=== PATIENT | male | born 1970 | race Caucasian/White ===

== ENCOUNTER 2019-04-20 18:07 | Emergency (ER) | payer BC, SELFPAY ==
[2019-04-20 18:38] VITALS: BP 122/74; PULSE 117; RESP 28; TEMP 37.7; O2SAT 96
--- NOTE | 2019-04-20 19:16 | ED.URI ---
HPI - URI/Sore Throat General Chief Complaint: Upper Respiratory Infection Stated Complaint: Fever/Headache Time Seen by Provider: 04/20/19 19:10 Source: patient and RN notes reviewed Mode of arrival: ambulatory Limitations: no limitations History of Present Illness HPI Narrative: Patient presents today with a 2-day history of cough, fever up to 104, headache, body aches. He has been taking Tylenol, TheraFlu, Kristina-[place], vitamin C. Currently rates his pain 6/10. Denies any history of asthma or COPD. Denies shortness of breath. He did not receive a flu vaccine. He does not smoke or vape. MD elicited complaint: fever Related Data Home Medications Medication Instructions Recorded Confirmed No Home Medications 04/20/19 04/20/19 Allergies Allergy/AdvReac Type Severity Reaction Status Date / Time No Known Allergies Allergy Verified 04/20/19 19:11 Review of Systems Review of Systems: Narrative: CONSTITUTIONAL: Denies chills, or sweats.+Body aches, fever EYES: Denies visual changes, redness, or discharge. ENT: Denies rhinorrhea, congestion, sore throat, or otalgia. CARDIOVASCULAR: Denies chest pain, palpitations, or edema. RESPIRATORY: Denies dyspnea.+Cough GASTROINTESTINAL: Denies abdominal pain, nausea, vomiting, or diarrhea. GENITOURINARY: Denies dysuria or hematuria. SKIN: Denies rash, itching, or wounds. MUSCULOSKELETAL: Denies back pain, joint pain, or myalgia. NEUROLOGIC: Denies numbness, tingling, or weakness.+Headache PSYCH: Denies depression or anxiety. [facility] Family History Family History (Updated 02/04/18 @ 14:59 by DOCTOR UNKNOWN) Father Malignant neoplasm of prostate Grandparent Family history of malignant neoplasm Mother Family history of malignant neoplasm of uterus Social History Social History Smoking status: Never smoker Second hand tobacco smoke exposure: Yes Smoking end date: 02/25/11 Alcohol intake: current Comments At time of signature, I have reviewed and agree with nursing past medical, surgical, social and family history unless otherwise noted. Please see nursing chart for further information. There is no relevant family history pertinent to the presenting complaint Exam Narrative: Exam Narrative: GENERAL: Mildly ill-appearing, well-nourished, and in no acute distress. HEAD: Normocephalic, atraumatic. EYES: EOMI. No redness or drainage. Conjunctivae normal. ENT: Mucous membranes pink and moist. Nares clear. No rhinorrhea. TMs normal bilaterally. Throat normal. Uvula midline. NECK: Normal AROM. Supple. No lymphadenopathy. CHEST: No respiratory distress. Clear to auscultation. HEART: Regular rhythm. +Tachycardia.No murmur appreciated. Normal peripheral pulses. ABDOMEN: Soft, nontender, nondistended, normal active bowel sounds. MUSCULOSKELETAL: No bony tenderness. EXTREMITIES: Normal range of motion. No edema. SKIN: Warm, dry, no rash. NEURO: No focal deficits. Alert and oriented x3. Gait steady. PSYCH: Normal affect. No signs of depression or anxiety. Course Vital Signs Vital signs: Vital Signs Temperature 99.8 F H 04/20/19 18:38 Pulse Rate 117 H 04/20/19 18:38 Respiratory Rate 28 H 04/20/19 18:38 Blood Pressure 122/74 04/20/19 18:38 Pulse Oximetry 96 04/20/19 18:38 Temperature 99.8 F H 04/20/19 18:38 Pulse Rate 117 H 04/20/19 18:38 Respiratory Rate 28 H 04/20/19 18:38 Blood Pressure 122/74 04/20/19 18:38 Pulse Oximetry 96 04/20/19 18:38 Reviewed. Tachycardia likely due to 104 fever just prior to arrival. MDM - URI/Sore Throat Differential Diagnosis Differential diagnosis: Likely upper respiratory infection, otitis media, sinusitis, viral infection and influenza Lab Data Attestation: I reviewed the patient's lab results. Labs: Influenza A Screen Positive Reference Range: Negative Influenza B Screen Negative Reference Range: Negative Critical Care Time Criti
== END 2019-04-20 19:20 | disposition home or self-care (01) ==
PROVIDERS: Emergency Provider Nurse Practitioner; PCP Family Medicine
DX: J10.1 Influenza due to other identified influenza virus with other respiratory manifestations (principal)
CPT/HCPCS: 87804; 99212; G0463

== ENCOUNTER 2019-12-10 14:03 | Emergency (ER) | payer BC, SELFPAY ==
--- NOTE | ~2019-12-10 | XR_ITS ---
EXAMINATION: XR chest 2V DATE: 12/10/2019 14:49 INDICATION: Shortness of breath. Anterior left rib pain. TECHNIQUE: Frontal and lateral views of the chest were obtained. COMPARISON: Chest 2 views 02/04/2018 FINDINGS: The chest demonstrates clear lungs without pneumonia, pleural effusion, or pneumothorax. Th e heart size is normal. IMPRESSION: 1. No acute cardiopulmonary disease. Reviewed, dictated and finalized at location A.
--- NOTE | ~2019-12-10 | XR_ITS ---
EXAMINATION: XR ribs LT 2V DATE: 12/10/2019 14:49 INDICATION: Left anterior rib pain. Shortness of breath. TECHNIQUE: 3 views of the left ribs were obtained. COMPARISON: Chest 2 views 02/04/2018 FINDINGS: There is no left-sided pneumonia, pleural effusion, or pneumothorax. The heart size is norm al. IMPRESSION: 1. No rib fracture. Reviewed, dictated and finalized at location A. IMPRESSION: 1. No rib fracture.
[2019-12-10 14:06] VITALS: BP 155/90; PULSE 87; RESP 20; TEMP 36.5; O2SAT 100
--- NOTE | 2019-12-10 14:20 | ED.BACK ---
HPI - Back Pain/Injury General Chief Complaint: Back Pain/Injury Stated Complaint: pain in chest from ribs/coughing up blood Time Seen by Provider: 12/10/19 14:20 Source: patient and RN notes reviewed History of Present Illness HPI Narrative: Patient is a 48-year-old male who presents the urgent care with complaints of left anterior rib pain. Patient states that he was having some back pain on Saturday and his walked along his back . Patient states at that time he heard something pop and ever since then is having severe left anterior rib pain. Patient states it seems to have gotten much worse. States that he has been using ibuprofen, pain patches [id number] and Tylenol. States that he has had a mild cough since before the incident however he had specks of blood in the cough this morning. Patient is also reporting of difficulty taking a deep breath as well as shortness of breath exacerbated with mask wearing. Patient denies any history of DVT and states that he takes aspirin for thick blood . Patient denies any other acute complaints. No obvious acute distress noted. Patient aware of plan of care. Some parts of this dictation were generated by voice recognition software and may contain typographical and/or grammatical inaccuracies. Related Data Home Medications Medication Instructions Recorded Confirmed No Home Medications 04/20/19 04/20/19 Allergies Allergy/AdvReac Type Severity Reaction Status Date / Time No Known Allergies Allergy Verified 12/10/19 14:29 Review of Systems Review of Systems: Narrative: CONSTITUTIONAL: Denies fever, chills, or sweats. EYES: Denies visual changes, redness, or discharge. ENT: Denies rhinorrhea, congestion, sore throat, or otalgia. CARDIOVASCULAR: Denies chest pain, palpitations, or edema. RESPIRATORY: Reports of slight productive cough (reports of pink specks in the sputum today) with dyspnea and difficulty taking deep breaths with anterior left rib pain GASTROINTESTINAL: Denies abdominal pain, nausea, vomiting, or diarrhea. GENITOURINARY: Denies dysuria or hematuria. SKIN: Denies rash or itching. MUSCULOSKELETAL: Denies back pain, joint pain, or myalgia. NEUROLOGIC: Denies headache, numbness, or weakness. All other systems reviewed are negative, except as documented in HPI. [facility] Family History Family History (Updated 02/04/18 @ 14:59 by DOCTOR UNKNOWN) Father Malignant neoplasm of prostate Grandparent Family history of malignant neoplasm Mother Family history of malignant neoplasm of uterus Social History Social History Smoking status: Never smoker Second hand tobacco smoke exposure: Yes Smoking end date: 02/25/11 Alcohol intake: current Comments At the time of my signature, I reviewed and agree with the nursing past medical, surgical, social, and family history. There is no relevant family history pertinent to the patient complaint. Exam Narrative: Exam Narrative: GENERAL: This is a well-nourished, well-developed patient, in no apparent distress. HEAD: normocephalic, atraumatic. EYES: PERRL. Sclera clear/white. Vision is grossly intact. EARS: External ears normal NOSE: External nose normal with no obvious nasal discharge, nares without redness, no rhinorrhea. THROAT: Mucous membranes moist, moderate erythema noted to posterior oropharynx NECK: Neck supple CARDIOVASCULAR: Regular rate and rhythm without murmurs, gallops, or rubs. RESPIRATORY: Mild inspiratory upper wheezes cleared with cough. Otherwise clear throughout. Breath sounds equal bilaterally. No wheezes, rales, or rhonchi. Mild left anterior rib tenderness SKIN: warm, intact with no suspicious lesions or rash, good texture and turgor. NEURO: awake, alert, and oriented to person, place and time. There were no obvious focal neurologic abnormalities. EXTREMITIES: No clubbing, cyanosis, or edema Course Vital Signs Vital signs: Vital Signs Temperature 97.7 F 12/10/19 14:06
== END 2019-12-10 15:10 | disposition left against medical advice (07) ==
PROVIDERS: Emergency Provider Nurse Practitioner Family; PCP Family Medicine
DX: R07.81 Pleurodynia (principal); R04.2 Hemoptysis
CPT/HCPCS: 71046; 71100; 99213; G0463

== ENCOUNTER 2021-05-17 13:38 | Emergency (ER) | payer BC, SELFPAY ==
[2021-05-17 13:43] VITALS: BP 170/93; PULSE 107; RESP 18; TEMP 37; O2SAT 100
--- NOTE | 2021-05-17 13:46 | ED.DENTAL ---
HPI - Dental/Oral General Chief complaint: Dental/Oral Stated complaint: Toothache/Facial Swelling Time Seen by Provider: 05/17/21 13:40 Source: patient and RN notes reviewed History of Present Illness HPI Narrative: Patient is a 50-year-old male who presents the urgent care with complaints of dental pain and left lower facial swelling. Patient states that it started approximately 2 days ago. Patient has had a fractured tooth for some time and has been working himself up to go to the dentist . Patient states is been like that for approximately 1 year. Patient denies any fever, chills, nausea or vomiting. Patient has been taking ibuprofen. No other acute complaints. No acute distress noted. Patient aware of the plan of care. Some parts of this dictation were generated by voice recognition software and may contain typographical and/or grammatical inaccuracies. Related Data Home Medications Medication Instructions Recorded Confirmed aspirin [Baby Aspirin] 81 mg PO DAILY 05/17/21 05/17/21 Allergies Allergy/AdvReac Type Severity Reaction Status Date / Time No Known Allergies Allergy Verified 05/17/21 13:55 Review of Systems Review of Systems: CONSTITUTIONAL: Denies fever, chills, or sweats. EYES: Denies visual changes, redness, or discharge. ENT: Denies rhinorrhea, congestion, sore throat, or otalgia. Reports of left lower dental pain and facial swelling CARDIOVASCULAR: Denies chest pain, palpitations, or edema. RESPIRATORY: Denies cough or dyspnea. GASTROINTESTINAL: Denies abdominal pain, nausea, vomiting, or diarrhea. GENITOURINARY: Denies dysuria or hematuria. SKIN: Denies rash or itching. MUSCULOSKELETAL: Denies back pain, joint pain, or myalgia. NEUROLOGIC: Denies headache, numbness, or weakness. All other systems reviewed are negative, except as documented in HPI. [facility] Family History Family History (Updated 02/04/18 @ 14:59 by DOCTOR UNKNOWN) Father Malignant neoplasm of prostate Grandparent Family history of malignant neoplasm Mother Family history of malignant neoplasm of uterus Social History Social History Smoking status: Never smoker Second hand tobacco smoke exposure: Yes Smoking end date: 02/25/11 Alcohol intake: current Comments At the time of my signature, I reviewed and agree with the nursing past medical, surgical, social, and family history. There is no relevant family history pertinent to the patient complaint. Exam Narrative: GENERAL: This is a well-nourished, well-developed patient, in no apparent distress. HEAD: normocephalic, atraumatic. EYES: PERRL. Sclera clear/white. Vision is grossly intact. EARS: External ears normal NOSE: External nose normal with no obvious nasal discharge, nares without redness, no rhinorrhea. THROAT: Mucous membranes moist DENTAL: Completely avulsed first left lower molar, tooth #19 with surrounding erythema and edema. Mild to moderate left lower facial swelling and tenderness NECK: Neck supple CARDIOVASCULAR: Regular rate and rhythm without murmurs, gallops, or rubs. RESPIRATORY: Crackles throughout. Breath sounds equal bilaterally. SKIN: warm, intact with no suspicious lesions or rash, good texture and turgor. NEURO: awake, alert, and oriented to person, place and time. There were no obvious focal neurologic abnormalities. EXTREMITIES: No clubbing, cyanosis, or edema. Course Course Level of Care: Express Care Visit Vital Signs Vital signs: Vital Signs Temperature 98.6 F 05/17/21 13:43 Pulse Rate 107 H 05/17/21 13:43 Respiratory Rate 18 05/17/21 13:43 Blood Pressure 170/93 H 05/17/21 13:43 Pulse Oximetry 100 05/17/21 13:43 Temperature 98.6 F 05/17/21 13:43 Pulse Rate 107 H 05/17/21 13:43 Respiratory Rate 18 05/17/21 13:43 Blood Pressure 170/93 H 05/17/21 13:43 Pulse Oximetry 100 05/17/21 13:43 Reviewed-patient is informed that they may have pre-hypertension or hypertension based on a blood pr
== END 2021-05-17 14:00 | disposition home or self-care (01) ==
PROVIDERS: Emergency Provider Nurse Practitioner Family
DX: L02.91 Cutaneous abscess, unspecified (principal)
CPT/HCPCS: 99213; G0463

== ENCOUNTER 2021-06-27 08:02 | Emergency (ER) | payer BC, SELFPAY ==
[2021-06-27 08:06] VITALS: BP 138/89; PULSE 92; RESP 20; TEMP 36.9; O2SAT 100
--- NOTE | 2021-06-27 08:07 | ED.EAR ---
HPI - Ear Problem General Chief complaint: Ear Stated complaint: Ear Pain Time Seen by Provider: 06/27/21 08:07 Source: patient and RN notes reviewed History of Present Illness HPI Narrative: Patient is a 50-year-old male who presents the urgent care with complaints of right ear pain since Saturday. Patient states he was taking ibuprofen and then yesterday decided to use peroxide. Patient states he can now hardly hear out of the ear. Denies any drainage, fever or other upper respiratory complaints. No other acute complaints. No acute distress noted. Patient aware of the plan of care. Some parts of this dictation were generated by voice recognition software and may contain typographical and/or grammatical inaccuracies. Related Data Allergies Allergy/AdvReac Type Severity Reaction Status Date / Time No Known Allergies Allergy Verified 06/27/21 08:11 Review of Systems Review of Systems: CONSTITUTIONAL: Denies fever, chills, or sweats. EYES: Denies visual changes, redness, or discharge. ENT: Denies rhinorrhea, congestion, sore throat. Reports of right otalgia and decreased hearing CARDIOVASCULAR: Denies chest pain, palpitations, or edema. RESPIRATORY: Denies cough or dyspnea. GASTROINTESTINAL: Denies abdominal pain, nausea, vomiting, or diarrhea. GENITOURINARY: Denies dysuria or hematuria. SKIN: Denies rash or itching. MUSCULOSKELETAL: Denies back pain, joint pain, or myalgia. NEUROLOGIC: Denies headache, numbness, or weakness. All other systems reviewed are negative, except as documented in HPI. [facility] Family History Family History (Updated 02/04/18 @ 14:59 by DOCTOR UNKNOWN) Father Malignant neoplasm of prostate Grandparent Family history of malignant neoplasm Mother Family history of malignant neoplasm of uterus Social History Social History Smoking status: Never smoker Second hand tobacco smoke exposure: Yes Smoking end date: 02/25/11 Alcohol intake: current Comments At the time of my signature, I reviewed and agree with the nursing past medical, surgical, social, and family history. There is no relevant family history pertinent to the patient complaint. Exam Narrative: GENERAL: This is a well-nourished, well-developed patient, in no apparent distress. HEAD: normocephalic, atraumatic. EYES: PERRL. Sclera clear/white. Vision is grossly intact. EARS: External ears normal, auditory canals clear and without drainage, mild yellow drainage from the right TM with surrounding erythema and slight bulging. Left TM normal without perforation. Hearing grossly intact. NOSE: External nose normal with no obvious nasal discharge, nares without redness, no rhinorrhea. THROAT: Mucous membranes moist, posterior pharynx clear. NECK: Neck supple CARDIOVASCULAR: Regular rate and rhythm without murmurs, gallops, or rubs. RESPIRATORY: Clear to auscultation. Breath sounds equal bilaterally. No wheezes, rales, or rhonchi. SKIN: warm, intact with no suspicious lesions or rash, good texture and turgor. NEURO: awake, alert, and oriented to person, place and time. There were no obvious focal neurologic abnormalities. EXTREMITIES: No clubbing, cyanosis, or edema. Course Course Level of Care: Express Care Visit Vital Signs Vital signs: Vital Signs Temperature 98.5 F 06/27/21 08:06 Pulse Rate 92 06/27/21 08:06 Respiratory Rate 20 06/27/21 08:06 Blood Pressure 138/89 06/27/21 08:06 Pulse Oximetry 100 06/27/21 08:06 Temperature 98.5 F 06/27/21 08:11 Pulse Rate 92 06/27/21 08:11 Respiratory Rate 20 06/27/21 08:11 Blood Pressure 138/89 06/27/21 08:11 Pulse Oximetry 100 06/27/21 08:11 Reviewed Medical Decision Making MDM Narrative Medical decision making narrative: Advised patient to complete the oral antibiotic regimen as prescribed. Be sure to eat and drink with the medication. Do not put anything in the ear such as water, peroxide, Q-tips or [id number] eardrops. May use a wa
[2021-06-27 08:11] VITALS: BP 138/89; PULSE 92; RESP 20; TEMP 36.9; O2SAT 100
== END 2021-06-27 08:17 | disposition home or self-care (01) ==
PROVIDERS: Emergency Provider Nurse Practitioner Family
DX: H66.91 Otitis media, unspecified, right ear (principal)
CPT/HCPCS: 99213; G0463

== ENCOUNTER 2022-06-07 10:59 | Emergency (ER) | payer BC, SELFPAY ==
[2022-06-07 11:02] VITALS: BP 152/86; PULSE 96; RESP 20; TEMP 36.9; O2SAT 100
--- NOTE | 2022-06-07 11:09 | ED.URI ---
HPI - URI/Sore Throat General Chief Complaint: Upper Respiratory Infection Stated Complaint: Sore Throat/Abd Pain Time Seen by Provider: 06/07/22 11:00 Source: patient and RN notes reviewed History of Present Illness HPI Narrative: Patient is a 51-year-old male who presents to urgent care with complaints of sore throat and upset stomach this started this morning. Patient states that his spouse and child are both positive for strep. Patient is not taking anything [id number] for his symptoms and denies any fever, nausea or vomiting. No other acute complaints. No acute distress noted. Patient aware of the plan of care. Some parts of this dictation were generated by voice recognition software and may contain typographical and/or grammatical inaccuracies. Related Data Allergies Allergy/AdvReac Type Severity Reaction Status Date / Time No Known Allergies Allergy Verified 06/27/21 08:11 Review of Systems Review of Systems: CONSTITUTIONAL: Denies fever, chills, or sweats. EYES: Denies visual changes, redness, or discharge. ENT: Denies rhinorrhea, congestion, otalgia. Reports of sore throat CARDIOVASCULAR: Denies chest pain, palpitations, or edema. RESPIRATORY: Denies cough or dyspnea. GASTROINTESTINAL: Reports of nausea in GENITOURINARY: Denies dysuria or hematuria. SKIN: Denies rash or itching. MUSCULOSKELETAL: Denies back pain, joint pain, or myalgia. NEUROLOGIC: Denies headache, numbness, or weakness. All other systems reviewed are negative, except as documented in HPI. [facility] Family History Family History (Updated 02/04/18 @ 14:59 by DOCTOR UNKNOWN) Father Malignant neoplasm of prostate Grandparent Family history of malignant neoplasm Mother Family history of malignant neoplasm of uterus Social History Social History Smoking status: Never smoker Second hand tobacco smoke exposure: Yes Smoking end date: 02/25/11 Alcohol intake: current Comments At the time of my signature, I reviewed and agree with the nursing past medical, surgical, social, and family history. There is no relevant family history pertinent to the patient complaint. Exam Narrative: GENERAL: This is a well-nourished, well-developed patient, in no apparent distress. HEAD: normocephalic, atraumatic. EYES: PERRL. Sclera clear/white. Vision is grossly intact. EARS: External ears normal, auditory canals clear and without drainage, TMs normal without perforation. Hearing grossly intact. NOSE: External nose normal with no obvious nasal discharge, nares without redness, no rhinorrhea. THROAT: Mucous membranes moist, [id number] bilateral tonsillar edema with erythema and moderate postnasal drainage NECK: Neck supple, non-tender without lymphadenopathy CARDIOVASCULAR: Regular rate and rhythm without murmurs, gallops, or rubs. RESPIRATORY: Clear to auscultation. Breath sounds equal bilaterally. No wheezes, rales, or rhonchi. SKIN: warm, intact with no suspicious lesions or rash, good texture and turgor. NEURO: awake, alert, and oriented to person, place and time. There were no obvious focal neurologic abnormalities. EXTREMITIES: No clubbing, cyanosis, or edema. Course Course Level of Care: Express Care Visit Vital Signs Vital signs: Vital Signs Temperature 98.5 F 06/07/22 11:02 Pulse Rate 96 06/07/22 11:02 Respiratory Rate 20 06/07/22 11:02 Blood Pressure 152/86 H 06/07/22 11:02 Pulse Oximetry 100 06/07/22 11:02 Oxygen Delivery Room Air 06/07/22 11:02 Temperature 98.5 F 06/07/22 11:02 Pulse Rate 96 06/07/22 11:02 Respiratory Rate 20 06/07/22 11:02 Blood Pressure 152/86 H 06/07/22 11:02 Pulse Oximetry 100 06/07/22 11:02 Oxygen Delivery Room Air 06/07/22 11:02 Reviewed- Patient is informed that they may have pre-hypertension or hypertension based on a blood pressure reading in the department. I recommend the patient call the primary care provider listed on their discharge instructions
== END 2022-06-07 11:40 | disposition home or self-care (01) ==
PROVIDERS: Emergency Provider Nurse Practitioner Family
DX: J02.9 Acute pharyngitis, unspecified (principal); Z20.818 Contact with and (suspected) exposure to other bacterial communicable diseases; Z87.891 Personal history of nicotine dependence
CPT/HCPCS: 99213; G0463

== ENCOUNTER 2022-12-09 18:14 | Emergency (ER) | payer BC, SELFPAY ==
[2022-12-09 18:38] VITALS: BP 149/88; PULSE 101; RESP 18; TEMP 37; O2SAT 100
--- NOTE | 2022-12-09 19:10 | PC.NURSE ---
Assumed care of pt from CINTHIA Muñiz at this time.
[2022-12-09 19:11] LABS: Basophils Absolute Auto 0.1 K/mm3 (0.0-0.1); Basophils Percent Auto 0.8 % (0.2-1.2); Eosinophils Absolute Auto 0.1 K/mm3 (0-0.3); Eosinophils Percent Auto 1.1 % (0-4.4); Hematocrit 47.9 % (42.0-52.0); Immature Granulocyte Absolute 0.05 K/mm3 (0.00-0.031); Immature Granulocyte Percent A 0.4 % (0-0.5); Lymphocytes Absolute Auto 1.83 K/mm3 (0.9-3.2); Lymphocytes Percent Auto 15.8 % (18.3-44.2); Mean Corpuscular HGB Conc 33.4 g/dl (32-36); Mean Corpuscular Hemoglobin 35.5 pg (26-34); Mean Corpuscular Volume 106.2 fl (80-100); Monocytes Absolute Auto 0.9 K/mm3 (0.1-0.6); Monocytes Percent Auto 7.6 % (2.6-8.5); Neutrophils Absolute Auto 8.6 K/mm3 (1.3-6.7); Neutrophils Percent Auto 74.3 % (45.5-73.1); Platelet Count Result 229 k/mm3 (150-375); Red Blood Count 4.51 M/mm3 (4.6-6.20); Red Cell Distribution Width 12.1 % (11.5-14.5); White Blood Count 11.6 K/mm3 (4.5-10.0)
[2022-12-09 19:21] LABS: Alanine Aminotransferase 26 U/L (6-50); Albumin Level 4.2 g/dL (3.5-5.1); Alkaline Phosphatase 349 U/L (38-126); Anion Gap 11 mmol/L (8-16); Aspartate Amino Transferase 34 U/L (17-59); Bilirubin,Total 1.5 mg/dL (0.2-1.3); Blood Urea Nitrogen 10 mg/dL (9-20); Calcium 9.5 mg/dL (8.4-10.2); Carbon Dioxide 25 mmol/L (22-30); Chloride 102 mmol/L (98-107); Estimated CRCL calculation 109 ml/min; Estimated Glomerular Filt Rate > 60; Glucose 102 mg/dL (65-110); Lipase 157 U/L (23-300); Potassium 3.8 mmol/L (3.4-5.0); Sodium 138 mmol/L (137-145)
[2022-12-09 19:24] LABS: INR 1.1; Partial Thromboplastin Time 36.7 SECONDS (22.3-36.8)
--- NOTE | 2022-12-09 19:40 | PC.NURSE ---
EDP, Dr. Martinez, VORB 1 vial 1% lidocaine for procedure. Closed loop communication and verbalized read back used for order.
[2022-12-09 19:45] VITALS: BP 135/91; PULSE 89; RESP 22; O2SAT 94
[2022-12-09] MEDS: LIDOCAINE HCL 1% LOCAL INJ 10 ML VIAL (21:05)
[2022-12-09 21:21] LABS: Albumin Level 3.8 g/dL (3.5-5.1)
[2022-12-09 21:30] VITALS: BP 135/89; PULSE 92; RESP 19; O2SAT 96
[2022-12-09 21:30] LABS: Source Peritoneal Fluid Peritoneal Fluid
[2022-12-09 21:32] LABS: Appearance Peritoneal Fluid Clear (Clear); Color Peritoneal Fluid Yellow (Colorless); Lymphocytes Peritoneal Fluid 7 %; Monocytes Peritoneal Fluid 11 %; Neutrophils Peritoneal Fluid 12 % (0-25); Nucleated Cells Peritoneal Flu 549 /uL (0-500); RBC Peritoneal Fluid < 2000 /uL (0-100000)
[2022-12-09 21:33] LABS: Macrophages Peritoneal Fluid 70 %
--- NOTE | 2022-12-09 21:35 | ED.GENADULT ---
HPI - General Adult General Chief complaint: Unspecified Stated complaint: ascites Time Seen by Provider: 12/09/22 18:46 Source: patient and family Limitations: no limitations History of Present Illness HPI narrative: This is a 51-year-old male who presents to the emergency department with generalized abdominal pain of 3 weeks duration. He states this is never happened before. His abdominal has become particularly distended leading to recent shortness of breath. Patient does state that he used to drink regularly for a few years but quit this and his last drink was a few months ago. He notes he is having difficulty moving due to the size of his abdomen. He has had decreased fluid intake as well. Bowel movements have been regular/normal. No change in urine output or discoloration of stool or urine. When he noticed he was putting on weight several months ago he started working out and his weight had gone down from 245lbs to 224lbs. This weight loss took place and then he felt the abdomminal bloating began. With the abdominal distension over the past few weeks, however, his weight has stayed the same despite the growing circumferance. He has tried to improve his diet and takes Metamucil for fiber. He had previously been taking a LiverWell supplement but stopped taking this before the distension started. Currently without a PCP (not yet established with new provider); has never seen GI/hepatology. Associated symptoms: cough (occasional) and shortness of breath Related Data Allergies Allergy/AdvReac Type Severity Reaction Status Date / Time No Known Allergies Allergy Verified 12/09/22 18:41 Review of Systems Review of Systems: All systems reviewed & are unremarkable except as noted in HPI and below (HPI) Constitutional: Constitutional: Denies fever(s) [facility] Past Medical History Medical History (Updated 12/10/22 @ 00:00 by Background Daemon) Polycythemia vera Family History Family History (Updated 02/04/18 @ 14:59 by DOCTOR UNKNOWN) Father Malignant neoplasm of prostate Grandparent Family history of malignant neoplasm Mother Family history of malignant neoplasm of uterus Social History Social History Smoking status: Never smoker Second hand tobacco smoke exposure: Yes Smoking end date: 02/25/11 Alcohol intake: current Comments Works from home. Has 6 daughters ranging in age from 27 years old to 5 years old. Has 2 grandchildren (also female). Former [employer]. One daughter is a nurse. Exam Const: General: cooperative, well developed, alert, awake and uncomfortable; No anxious, combative, confusion, poor hygiene or tired appearing Orientation/consciousness: patient oriented x3 Limitations: no limitations HENMT: Head: normal to inspection Ears: hearing grossly normal bilaterally Face/Nose/Sinus: Normal external nose present Eyes: General: appearance normal, both eyes and all related structures Conjunctivae: conjunctivae normal Sclera: sclerae normal (non-icteric) Neck: Neck: normal visual inspection Resp: Effort & Inspection: able to speak in complete sentences and no respiratory distress Cardio: Rate: tachycardic GI: Inspection: distended, No caput medusae present and other (bruise at LLQ; visible venous structures though not dilated) GI Palp: Yes Firmness to palpation present (GI) and No Rigid due to palpation Percussion: Yes Fluid wave present Other: Ascites on POCUS with pocket of fluid 5-8cm depth in each of 4 quadrants Skin: General skin exam: normal color Neuro: General: patient oriented x3 Cognition (Neuro): normal cognition Speech: normal speech, No Expressive aphasia present and No Receptive aphasia present Sensory Exam: normal sensation Extrem: General: normal to inspection Psych: Appearance: grossly normal and well kempt Mental Status: mental status grossly normal Attitude: cooperative Thought process: Normal thought process present Insight: Good insight
[2022-12-09] MEDS: IBUPROFEN 600 MG TABLET PO (21:50)
[2022-12-09] MEDS: ACETAMINOPHEN 325 MG TABLET 650 MG PO (21:50)
[2022-12-09] MEDS: FUROSEMIDE INJ 40 MG/4 ML VIAL IV PUSH (21:52)
[2022-12-09 22:19] LABS: Appearance Urine Clear (Clear); Bacteria Urine None Seen /hpf; Bilirubin Urine Negative (Negative); Blood Urine Negative (Negative); Color Urine Yellow (Yellow); Glucose Urine UA Negative (Negative); Ketones Urine Negative (Negative); Leukocyte Esterase Ur Trace LEU/UL (Negative); Nitrate Urine Negative (Negative); Non Pathogenic Casts 0-2; Protein Urine Negative (Negative); RBC Urine 0-2 /hpf (0-2); Specific Grav Ur 1.009 (1.001-1.035); Squamous Epithelial Cell Urine None seen /hpf (Few); WBC Urine 0-5 /hpf; pH Urine 6.5 (5.0-9.0)
[2022-12-09 22:49] LABS: Add Urine Microscopic? YES
[2022-12-13 20:29] LABS: Glucose Peritoneal Fluid 109 mg/dL; LDH Peritoneal Fluid 80 U/L (<63); Total Protein Peritoneal Fluid 3.1 g/dL
[2022-12-14 21:20] LABS: Albumin Peritoneal Fluid 1.6 g/dL
[2022-12-16 21:43] LABS: Amylase Peritoneal Fluid 14 U/L
== END 2022-12-09 22:26 | disposition home or self-care (01) ==
PROVIDERS: Emergency Provider Student in an Organized Health Care Education/Training Program
DX: R18.8 Other ascites (principal)
CPT/HCPCS: 36415; 49083; 80053; 81001; 82040; 82042; 82150; 82945; 83615; 83690; 84157; 85025; 85610; 85730; 87070; 87075; 87205; 88108; 88305; 89051; 96374; 99284; A9270; J1940

== ENCOUNTER 2022-12-11 12:29 | Outpatient (CLI) | payer BC, SELFPAY ==
[2022-12-11 13:05] LABS: Basophils Absolute Auto 0.1 K/mm3 (0.0-0.1); Basophils Percent Auto 0.6 % (0.2-1.2); Eosinophils Absolute Auto 0.1 K/mm3 (0-0.3); Eosinophils Percent Auto 0.8 % (0-4.4); Hematocrit 47.7 % (42.0-52.0); Immature Granulocyte Absolute 0.05 K/mm3 (0.00-0.031); Immature Granulocyte Percent A 0.4 % (0-0.5); Lymphocytes Absolute Auto 1.82 K/mm3 (0.9-3.2); Lymphocytes Percent Auto 14.4 % (18.3-44.2); Mean Corpuscular HGB Conc 33.5 g/dl (32-36); Mean Corpuscular Hemoglobin 35.6 pg (26-34); Mean Platelet Volume 10.2 fl (7.4-10.4); Monocytes Percent Auto 8.2 % (2.6-8.5); Neutrophils Absolute Auto 9.6 K/mm3 (1.3-6.7); Neutrophils Percent Auto 75.6 % (45.5-73.1); Platelet Count Result 238 k/mm3 (150-375); Red Cell Distribution Width 12.2 % (11.5-14.5); White Blood Count 12.6 K/mm3 (4.5-10.0)
[2022-12-11 13:57] LABS: Iron 59 ug/dL (49-181)
[2022-12-11 14:06] LABS: Percent Iron Saturation 19 % (20-50)
[2022-12-11 14:26] LABS: Alanine Aminotransferase 22 U/L (6-50); Albumin Level 4.3 g/dL (3.5-5.1); Anion Gap 9 mmol/L (8-16); Aspartate Amino Transferase 29 U/L (17-59); Bilirubin,Total 1.9 mg/dL (0.2-1.3); Blood Urea Nitrogen 11 mg/dL (9-20); Calcium 9.7 mg/dL (8.4-10.2); Carbon Dioxide 28 mmol/L (22-30); Chloride 100 mmol/L (98-107); Estimated Glomerular Filt Rate > 60; Glucose 94 mg/dL (65-110); Potassium 4.4 mmol/L (3.4-5.0); Sodium 137 mmol/L (137-145)
[2022-12-11 14:27] LABS: Alkaline Phosphatase 338 U/L (38-126)
[2022-12-11 15:01] LABS: HAV RESULT Negative (Negative); Hepatitis B Core IgM Result Negative (Negative); Hepatitis B Surface Antigen Negative (Negative)
[2022-12-11 15:09] LABS: Hepatitis B Surface Anti Res Positive; Hepatitis C Virus Antibody Negative (Negative)
[2022-12-13 10:24] LABS: Hepatitis A Antibody Total Reactive (Nonreactive)
[2022-12-14 12:33] LABS: Actin Antibody (IgG) <20 U (<20)
[2022-12-14 21:29] LABS: Mitochondrial (M2) Ab (IgG) <=20.0 U (<=20.0)
[2022-12-15 05:12] LABS: GGT 296 U/L (3-95)
[2022-12-16 14:43] LABS: Alpha Fetoprotein Tumor Marker 4.5 ng/mL (<6.1); LKM 1 Antibody <=20.0 U (<=20.0)
[2022-12-17 03:58] LABS: Alpha-1-Antitrypsin, QN 287 mg/dL (83-199); Ceruloplasmin 38 mg/dL (18-36)
[2022-12-20 15:27] LABS: ALT 14 U/L (9-46); Alpha-2-Macroglobulin 126 mg/dL (106-279); Apolipoprotein A1 119 mg/dL (94-176); Fibrosis Stage F1-F2; GGT 299 U/L (3-95); Haptoglobin 141 mg/dL (43-212); Necroinflammat Act Grade A0; Total Bilirubin 0.9 mg/dL (0.2-1.2)
== END 2022-12-11 12:30 | disposition home or self-care (01) ==
LOC: ANHLAB 12:30
PROVIDERS: Visit Provider Nurse Practitioner Family
DX: R18.8 Other ascites (principal)
CPT/HCPCS: 36415; 80053; 80074; 81596; 82103; 82105; 82390; 82728; 82977; 83520; 83540; 83550; 85025; 86038; 86364; 86376; 86706; 86708

== ENCOUNTER 2022-12-20 07:50 | Outpatient (CLI) | payer BC, SELFPAY ==
[2022-12-20 09:09] LABS: Alanine Aminotransferase 26 U/L (6-50); Albumin Level 4.4 g/dL (3.5-5.1); Alkaline Phosphatase 316 U/L (38-126); Anion Gap 9 mmol/L (8-16); Aspartate Amino Transferase 37 U/L (17-59); Bilirubin,Total 1.5 mg/dL (0.2-1.3); Blood Urea Nitrogen 14 mg/dL (9-20); Calcium 10.1 mg/dL (8.4-10.2); Carbon Dioxide 27 mmol/L (22-30); Chloride 100 mmol/L (98-107); Estimated Glomerular Filt Rate > 60; Glucose 111 mg/dL (65-110); Potassium 3.9 mmol/L (3.4-5.0); Sodium 136 mmol/L (137-145)
== END 2022-12-20 07:51 | disposition home or self-care (01) ==
PROVIDERS: Visit Provider Nurse Practitioner Family
DX: R18.8 Other ascites (principal)
CPT/HCPCS: 36415; 80053

== ENCOUNTER 2022-12-21 09:04 | Outpatient (CLI) | payer BC, SELFPAY ==
--- NOTE | ~2022-12-21 | US_ITS ---
EXAMINATION: US paracentesis abd w/image DATE: 12/21/2022 10:25 INDICATION: Ascites. TECHNIQUE: The procedure and its risks and benefits were discussed with the patient. Potential risks discussed included bleeding, allergic reaction and infection. The skin was prepped and draped in ster ile fashion. 1% lidocaine was used for local anesthesia. Under ultrasound guidance, a 5 Fr catheter w ith trochar was advanced into the ascites in the right lower quadrant. Fluid was aspirated into vacuu m bottles. The catheter was removed, and a dressing was applied. There were no immediate complication s. FINDINGS: Ultrasound images demonstrate ascites and the catheter within the fluid. Subtle fine surface nodulari ty of the liver was noted consistent with the cirrhosis. IMPRESSION: 1. Successful ultrasound-guided paracentesis yielding 5000 mL of clear dark james-colored fluid. 2. Cirrhosis. Reviewed, dictated and finalized at location A. IMPRESSION: 1. Successful ultrasound-guided paracentesis yielding 5000 mL of clear dark am louie-colored fluid. 2. Cirrhosis.
== END 2022-12-21 09:05 | disposition home or self-care (01) ==
PROVIDERS: Visit Provider Nurse Practitioner Family
DX: R18.8 Other ascites (principal); K74.69 Other cirrhosis of liver
CPT/HCPCS: 49083

== ENCOUNTER 2022-12-25 06:55 | Outpatient (CLI) | payer BC, SELFPAY ==
--- NOTE | ~2022-12-25 | CT_ITS ---
EXAMINATION: CT abdomen pelvis w con DATE: 12/25/2022 07:53 INDICATION: Other ascites. TECHNIQUE: Computed tomography (CT) of the abdomen and pelvis was performed with 100 mL Omnipaque 350 intravenous contrast. Automated exposure control and iterative reconstruction technique were employe d. The dose-length product was 773.14 mGy-cm. COMPARISON: None. FINDINGS: The visualized portions of the lung bases demonstrate mild atelectasis. No pleural effusion . There is a 5 mm cyst in the liver. There is moderate splenomegaly measuring 18.6 cm. There are gall stones in the gallbladder, which is normal in size. The pancreas, adrenal glands, and left kidney are normal. There is a 3 mm stone in right kidney. There is a moderate volume of ascites. The prostate i s mildly enlarged. There is diverticulosis of the colon without evidence of diverticulitis. There is a paraumbilical portacaval shunt. There are no pathologically enlarged lymph nodes. There is mild tho racolumbar spondylosis. IMPRESSION: 1. Moderate volume of ascites. 2. Portal venous hypertension. Reviewed, dictated and finalized at location E.
== END 2022-12-25 06:56 | disposition home or self-care (01) ==
PROVIDERS: Visit Provider Nurse Practitioner Family
DX: K76.6 Portal hypertension (principal); R18.8 Other ascites
CPT/HCPCS: 74177; Q9967

== ENCOUNTER 2023-01-19 09:41 | Emergency (ER) | payer BC, SELFPAY ==
[2023-01-19] VITALS (25 sets, daily range): BP systolic 98–115; BP diastolic 61–73; PULSE 89–105; RESP 17–32; O2SAT 97–100
--- NOTE | ~2023-01-19 | CT_ITS ---
EXAMINATION: CT abdomen pelvis w con INDICATION: Left lower quadrant abdominal pain, hematochezia TECHNIQUE: Computed tomographic images of the abdomen and pelvis were obtained after the administrati on of 100 cc of Omnipaque 350 intravenous contrast. The dose-length product (DLP) was 847.23 mGy-cm. Automated exposure control and iterative reconstruction technique were employed. COMPARISON: 12/25/2022 FINDINGS: Minimal dependent atelectasis is present in the lung bases. The heart size is normal. There is a small sliding hiatal hernia. The liver, spleen, and pancreas are normal. Stones are present in the nondistended gallbladder. There is a 3 mm nonobstructing stone of the right kidney upper pole. Th ere are nonobstructing stones of the left kidney measuring up to 2 mm. Cysts of the right kidney tommy ure up to 8 mm. There is a small volume of ascites. There is inflammatory change in the right upper q uadrant near the second portion of the duodenum/pancreatic head. No pathologically enlarged abdominal or pelvic lymph nodes are identified. No free intraperitoneal gas or evidence of bowel obstruction. There is mild lumbar spondylosis. IMPRESSION: 1. Small volume of ascites and inflammatory change in the right upper quadrant, possibly acute pancre atitis. Reviewed, dictated and finalized at location A. ONNEL INTERVIEWER IMPRESSION: 1. Small volume of ascites and inflammatory change in the right upper quadrant, possibly acute pancreatitis.
[2023-01-19 11:40] LABS: Basophils Absolute Auto 0.2 K/mm3 (0.0-0.1); Basophils Percent Auto 0.8 % (0.2-1.2); Eosinophils Absolute Auto 0.1 K/mm3 (0-0.3); Eosinophils Percent Auto 0.7 % (0-4.4); Hematocrit 39.8 % (42.0-52.0); Hemoglobin 13.2 g/dL (14.0-18.0); Immature Granulocyte Absolute 0.15 K/mm3 (0.00-0.031); Immature Granulocyte Percent A 0.8 % (0-0.5); Lymphocytes Absolute Auto 2.04 K/mm3 (0.9-3.2); Lymphocytes Percent Auto 11.4 % (18.3-44.2); Mean Corpuscular HGB Conc 33.2 g/dl (32-36); Mean Corpuscular Hemoglobin 33.8 pg (26-34); Mean Corpuscular Volume 102.1 fl (80-100); Mean Platelet Volume 10.2 fl (7.4-10.4); Monocytes Absolute Auto 1.2 K/mm3 (0.1-0.6); Monocytes Percent Auto 6.8 % (2.6-8.5); Neutrophils Absolute Auto 14.3 K/mm3 (1.3-6.7); Neutrophils Percent Auto 79.5 % (45.5-73.1); Platelet Count Result 307 k/mm3 (150-375); Red Cell Distribution Width 12.3 % (11.5-14.5)
[2023-01-19] MEDS: SODIUM CHLORIDE 0.9% IV 1,000 ML 999 ML IV CONT (11:51)
[2023-01-19 11:52] LABS: Alanine Aminotransferase 24 U/L (6-50); Albumin Level 4.2 g/dL (3.5-5.1); Alkaline Phosphatase 220 U/L (38-126); Anion Gap 11 mmol/L (8-16); Aspartate Amino Transferase 32 U/L (17-59); Bilirubin,Total 1.4 mg/dL (0.2-1.3); Blood Urea Nitrogen 24 mg/dL (9-20); Calcium 9.7 mg/dL (8.4-10.2); Carbon Dioxide 21 mmol/L (22-30); Chloride 103 mmol/L (98-107); Estimated CRCL calculation 91 ml/min; Estimated Glomerular Filt Rate > 60; Glucose 152 mg/dL (65-110); Lipase 357 U/L (23-300); Potassium 5.4 mmol/L (3.4-5.0); Sodium 135 mmol/L (137-145)
[2023-01-19 12:59] LABS: Appearance Urine Clear (Clear); Bacteria Urine None Seen /hpf; Bilirubin Urine Negative (Negative); Blood Urine Negative (Negative); Color Urine Yellow (Yellow); Glucose Urine UA Negative (Negative); Ketones Urine Negative (Negative); Leukocyte Esterase Ur Trace LEU/UL (Negative); Nitrate Urine Negative (Negative); Non Pathogenic Casts 0-2; Protein Urine Negative (Negative); RBC Urine 0-2 /hpf (0-2); Specific Grav Ur 1.019 (1.001-1.035); Squamous Epithelial Cell Urine None seen /hpf (Few); WBC Urine 0-5 /hpf; pH Urine 6.5 (5.0-9.0)
[2023-01-19 13:01] LABS: Add Urine Microscopic? YES
--- NOTE | 2023-01-19 14:15 | ED.ABDPAIN ---
HPI - Abdominal Pain General Chief Complaint: Abdominal Pain Stated Complaint: diarrhea with bleeding Time Seen by Provider: 01/19/23 11:26 History of Present Illness HPI narrative: Patient is a 52-year-old male who presents ER with blood in his stool. Patient last had a normal bowel movement 5 days ago. He has been having bloody bowel movements over last 3 days. Reports that he has been getting cramps with liquid blood coming out as well as dark blood clots. Reports the blood has been bright red. No vomiting or coffee-ground emesis. He is not on any blood thinners but does take a baby aspirin. He has been undergoing workup for nonspecific liver issue. He has had a paracentesis in the last month that yielded a L of fluid. He reports he quit drinking recently. No fevers or chills or sweats. No loss of consciousness. Last bloody bowel movement was early this morning. Related Data Home Medications Medication Instructions Recorded Confirmed aspirin 81 mg tablet,delayed 81 mg PO DAILY 01/08/23 01/08/23 release Allergies Allergy/AdvReac Type Severity Reaction Status Date / Time No Known Allergies Allergy Verified 01/08/23 08:51 Review of Systems Review of Systems: All systems reviewed & are unremarkable except as noted in HPI and below Constitutional: Constitutional: Denies chills, Denies fatigue and Denies fever(s) ENT: Denies nasal congestion and Denies sore throat Cardiovascular: Cardiovascular: Reports no additional cardiovascular complaints Respiratory: Respiratory: Reports no additional respiratory complaints Gastrointestinal: Gastrointestinal: Reports abdominal pain, Reports bloating, Reports diarrhea, Denies nausea and Denies vomiting Comments: Hematochezia PMFSH Past Medical History Medical History (Updated 01/19/23 @ 16:46 by Andriy Morales MD) Alcohol use Cholelithiasis Cirrhosis Cirrhosis Elevated liver function tests Liver cyst Polycythemia vera Portal hypertension Splenomegaly Family History Family History Father Malignant neoplasm of prostate Grandparent Family history of malignant neoplasm Mother Family history of malignant neoplasm of uterus Social History Social History Smoking status: Never smoker Second hand tobacco smoke exposure: Yes Smoking end date: 02/25/11 Alcohol intake: current Exam Narrative: GENERAL: Well-appearing, well-nourished, and in no acute distress. HEAD: Normocephalic, atraumatic. EYES: PERRL and EOMI. ENT: Mucous membranes moist. CHEST: Clear to auscultation. No respiratory distress. HEART: Regular rate and rhythm. Normal peripheral pulses. ABDOMEN: Soft, nontender, nondistended. Grossly bloody stool on digital rectal exam. EXTREMITIES: Normal range of motion. No edema. SKIN: Warm, dry, no rash. NEURO: Alert and oriented x3. PSYCH: Normal mood and affect. Course Course Emergency Course: Patient reports having a crimson stool while in the ER that also had clots in it. Given patient's bleeding as well as the inflammation identified on the CT scan I am concerned he may have a bleeding peptic ulcer. He will be started on Protonix IV. There is no GI at [facility] this weekend. I have discussed the case with Dr. Machuca at [facility] who has accepted the patient. patient educated that he may not get a procedure for 2 more days however he will be in a safe place should his bleeding become acutely unstable. Patient has had a 2 and half point drop in his hemoglobin. Vital Signs Vital signs: Vital Signs Blood Pressure 101/63 01/19/23 11:20 Pulse Rate 89 01/19/23 17:47 Respiratory Rate 20 01/19/23 17:47 Blood Pressure 109/73 01/19/23 17:30 Pulse Oximetry 98 01/19/23 17:47 MDM - Abdominal Pain Lab Data 01/19/23 11:34 01/19/23 11:34 Lab
[2023-01-19] MEDS: PANTOPRAZOLE SODIUM IV 80 MG in SODIUM CHLORIDE 0.9% IV 500 ML 50 MG IV CONT (14:49)
[2023-01-19] MEDS: PANTOPRAZOLE SODIUM IV 40 MG VIAL 80 MG IV PUSH (14:49)
--- NOTE | 2023-01-19 16:24 | PC.NURSE ---
spoke to Salvatore from [facility] @[id number] to give triage report and an update on pt status.
== END 2023-01-19 18:54 | disposition short-term general hospital (02) ==
PROVIDERS: Emergency Provider Emergency Medicine
DX: K92.2 Gastrointestinal hemorrhage, unspecified (principal); K74.60 Unspecified cirrhosis of liver; D75.1 Secondary polycythemia; Z87.891 Personal history of nicotine dependence; Z79.82 Long term (current) use of aspirin
CPT/HCPCS: 36415; 74177; 80053; 81001; 83690; 85025; 86850; 86880; 86900; 86901; 86902; 86905; 96361; 96365; 96366; 99285; C9113; J7030; J7040; Q9967

== ENCOUNTER 2023-04-05 08:02 | Outpatient (CLI) | payer BC, SELFPAY ==
--- NOTE | ~2023-04-05 | US_ITS ---
EXAMINATION: US abdomen limited DATE: 04/05/2023 09:22 INDICATION: Ascites TECHNIQUE: Multiple grayscale and Doppler ultrasound images of the abdomen were obtained prior to vicky nned paracentesis. Paracentesis was canceled due to insufficient intraperitoneal fluid. COMPARISON: CT dated 01/19/2023 FINDINGS: There is no appreciable ascites in any of the 4 quadrants of the abdomen and pelvis. There is hepatom egaly with right hepatic lobe extending into the upper right pelvis. IMPRESSION: 1. No ascites. Planned paracentesis was canceled. 2. Hepatomegaly. Reviewed, dictated and finalized at location A. IE SUPERVISOR
[2023-04-05 08:27] LABS: Hematocrit 47.2 % (42.0-52.0); Hemoglobin 15.6 g/dL (14.0-18.0); Mean Corpuscular HGB Conc 33.1 g/dl (32-36); Mean Corpuscular Hemoglobin 33.8 pg (26-34); Mean Corpuscular Volume 102.4 fl (80-100); Mean Platelet Volume 10.2 fl (7.4-10.4); Platelet Count Result 200 k/mm3 (150-375); Red Blood Count 4.61 M/mm3 (4.6-6.20); Red Cell Distribution Width 12.7 % (11.5-14.5); White Blood Count 17.9 K/mm3 (4.5-10.0)
[2023-04-05 08:38] LABS: INR 1.1; Prothrombin Time 14.4 Seconds (11.1-14.7)
[2023-04-05 08:58] LABS: Alanine Aminotransferase 24 U/L (6-50); Albumin Level 4.2 g/dL (3.5-5.1); Alkaline Phosphatase 158 U/L (38-126); Anion Gap 8 mmol/L (8-16); Aspartate Amino Transferase 37 U/L (17-59); Bilirubin,Total 1.3 mg/dL (0.2-1.3); Blood Urea Nitrogen 16 mg/dL (9-20); Calcium 9.9 mg/dL (8.4-10.2); Carbon Dioxide 26 mmol/L (22-30); Chloride 100 mmol/L (98-107); Estimated Glomerular Filt Rate > 60; Glucose 128 mg/dL (65-110); Potassium 4.4 mmol/L (3.4-5.0); Sodium 134 mmol/L (137-145)
== END 2023-04-05 08:03 | disposition home or self-care (01) ==
PROVIDERS: Visit Provider Nurse Practitioner Family
DX: K74.60 Unspecified cirrhosis of liver (principal); R18.8 Other ascites; R16.1 Splenomegaly, not elsewhere classified
CPT/HCPCS: 36415; 76705; 80053; 85027; 85610

== ENCOUNTER 2023-06-21 08:37 | Emergency (ER) | payer BC, SELFPAY ==
--- NOTE | ~2023-06-21 | XR_ITS ---
XR lumbar spine 2-3V 06/21/2023 09:15 Indication: Back pain Procedure: 3 views lumbar spine Comparison: No prior studies for comparison. Findings: Vertebral body heights are maintained. Levoscoliosis. No fracture or traumatic malalignment . Pedicles intact. Impression: 1: Mild levocurvature of the lumbar spine. Reviewed, dictated and finalized at location B. Impression: 1: Mild levocurvature of the lumbar spine.
[2023-06-21 08:41] VITALS: BP 125/75; PULSE 72; RESP 16; TEMP 37.1; O2SAT 100
--- NOTE | 2023-06-21 08:46 | ED.BACK ---
HPI - Back Pain/Injury General Chief Complaint: Back Pain/Injury Stated Complaint: Back Pain Time Seen by Provider: 06/21/23 08:50 Source: patient, RN notes reviewed and old records reviewed Mode of arrival: ambulatory Limitations: no limitations History of Present Illness HPI Narrative: 52 male presents to the [facility] with complaints low back pain. Patient states that he was lifting heavy objects guarding. Pain started pop in his low. States pain straightens Tylenol. States he can not take certain medications due to liver issues. Walks with a normal gait. Denies any loss retention of bowel or bladder. Denies any numbness or tingling in extremities. Denies abdominal pain or flank pain Onset (ago): day(s) (4) Related Data Home Medications Medication Instructions Recorded Confirmed aspirin 81 mg tablet,delayed 81 mg PO DAILY 01/08/23 06/21/23 release carvedilol 3.125 mg tablet 3.125 mg PO Q12H 04/15/23 06/21/23 cholecalciferol (vitamin D3) 25 25 mcg PO DAILY 04/15/23 06/21/23 mcg (1,000 unit) capsule (Vitamin D3) furosemide 20 mg tablet 40 mg PO QAM 04/15/23 06/21/23 mecobalamin (vitamin B12) 1,000 1,000 mcg sublingual DAILY 04/15/23 06/21/23 mcg disintegrating tablet,sublingual spironolactone 50 mg tablet 100 mg PO QAM 04/15/23 06/21/23 Allergies Allergy/AdvReac Type Severity Reaction Status Date / Time No Known Allergies Allergy Verified 06/21/23 09:01 Review of Systems Review of Systems: All systems reviewed & are unremarkable except as noted in HPI and below Constitutional: Constitutional: Reports no additional constitutional complaints Eyes: Eyes: Reports no additional eye complaints ENT: Reports system reviewed and no additional complaints, except as documented Cardiovascular: Cardiovascular: Reports no additional cardiovascular complaints, Denies chest pain and Denies dyspnea Respiratory: Respiratory: Reports no additional respiratory complaints, Denies chest congestion, Denies cough and Denies dyspnea Gastrointestinal: Gastrointestinal: Reports no additional gastrointestinal complaints, Denies abdominal pain, Denies nausea and Denies vomiting Musculoskeletal: Musculoskeletal: Reports as per HPI Integumentary/Breasts: Skin/Breast: Reports system reviewed and no additional complaints, except as docu Neurologic: Reports system reviewed and no additional complaints, except as documented Psychiatric: Psychiatric: Reports no additional psychiatric complaints Allergic/Immunologic: Allergic/Immunologic: Reports no additional allergic/immunologic complaints [facility] Past Medical History Medical History Alcohol use Alkaline phosphatase elevation Cholelithiasis Cirrhosis Diastasis recti Elevated liver function tests Former smoker Liver cyst Low vitamin D level Other retirement (current) drug therapy Polycythemia vera Portal hypertension Splenomegaly Umbilical hernia without obstruction and without gangrene Ventral hernia without obstruction or gangrene Family History Family History Father Malignant neoplasm of prostate Grandparent Family history of malignant neoplasm Mother Family history of malignant neoplasm of uterus Social History Social History Smoking status: Former smoker Second hand tobacco smoke exposure: Yes Smoking end date: 02/25/11 Alcohol intake: current Do You Feel Safe in your Home?: Yes Lack of Transportation: No Lack of Food: Never True Current Housing: I Have Housing Concerned About Future Housing: No Difficulty Paying Gas/Electric Bills: No Difficulty Paying for Meds: No Currently Unemployed: No Education: Bachelor's Degree Difficulty w/ Childcare or Family Care: No Living arrangements: with family Comments At the time of my signature, I reviewed and agree
== END 2023-06-21 09:43 | disposition home or self-care (01) ==
PROVIDERS: Emergency Provider Nurse Practitioner; PCP Family Medicine
DX: S39.012A Strain of muscle, fascia and tendon of lower back, initial encounter (principal); X50.0XXA Overexertion from strenuous movement or load, initial encounter; K74.60 Unspecified cirrhosis of liver; K76.6 Portal hypertension; Z79.82 Long term (current) use of aspirin
CPT/HCPCS: 72100; 99213; G0463

== ENCOUNTER 2024-04-09 09:19 | Outpatient (CLI) | payer BC, SELFPAY ==
--- OUTSIDE RECORDS SUMMARY | 2024-04-09 09:41 | XMS_ITS | Clinical Summary ---
Author Organization [facility] [place] [facility] [place] [facility] lt Address [address] [place] [address] Care Team Providers Care Booth Cleaner Name Role Phone Hilton Baron DO Primary Care Provider [phone] Allergies No known active allergies Medications cholecalcifero l (Dialyvite Vitamin D3 Max) 32989 unit tablet 9 Active omega-3 fatty acids-fish oil 300-1,000 mg capsule Take by mouth daily Active aspirin 81 mg enteric coated tablet Take 1 tablet (81 mg total) by mouth daily Active furosemide (LASIX) 20 mg tablet Take 3 tablets (60 mg total) by mouth daily Active spironolactone (ALDACTONE) 50 mg tablet Take 3 tablets (150 mg total) by mouth daily Active nebivoloL (BYSTOLIC) 5 mg tablet Take 1 tablet (5 mg total) by mouth daily 30 tablet 3 Active phenylephrine- cocoa butter (PREPARATION H) 0.25-88.44 % suppositoryInd ications:Recta l Pain Insert 1 suppository into the rectum 4 (four) times a day as needed (hemorrhoids) 48 suppository 3 Active Active Problems Problem Noted Date Diagnosed Date Ascites due to alcoholic cirrhosis (CMS/HCC) Alcohol-induced acute pancreatitis 01/20/2023 Hyponatremia 01/20/2023 Leukocytosis 01/20/2023 GI bleeding 01/19/2023 Leukocytosis 03/07/2021 Elevated LFTs 12/22/2018 Polycythemia 03/04/2018 ETOH abuse 03/07/2009 Head injury 03/07/2009 Overview (03/07/2021): 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 es 11/17/2008 Surgical History Surgery Date Site/Laterality Comments HERNIA REPAIR 02/26/2016 - 02/24/2017 Medical History Medical History Date Comments No pertinent past medical history Family History Medical History Relation Name Comments Prostate cancer Father Uterine cancer Mother Relation Name Status Comments Father Mother Social History Tobacco Use Types Packs/Day Years Used Date Smoking Tobacco: Former Smokeless Tobacco: Former Personal Safety Answer Date Recorded Have you ever been in or are you currently in a harmful physical or emotional relationship or is someone making you feel afraid or unsafe? 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 Gender Identity Not on file Sexual Orientation Not on file Obstetrics History Last Filed Vital Signs Vital Sign Reading Time Taken Comments Blood Pressure 99/61 01/21/2023 12:10 PM W[employer] W[employer]ER Pulse 76 01/21/2023 12:10 PM [employer] Temperature 36.7 C (98.1 F) 01/21/2023 7:31 AM W[employer] W[employer]ER Respiratory Rate 16 01/21/2023 12:1 0 PM W[employer] W[employer]ER Oxygen Saturation 96% 01/21/2023 12: 10 PM W[employer] W[employer]ER Inhaled Oxygen Concentration - - Weight 88.3 kg (194 lb 11.2 oz) 01/19/2023 7:45 PM W[employer] W[employer] Height 170.2 cm (5' 7 ) 01/19/2023 7:45 PM W[employer] W[employer] Body Mass Index 30.49 01/19/2023 7:45 PM W[employer] W[employer]ER Plan of Treatment Health Maintenance Due Date Last Done Comments Depression Screening 1970 Hepatitis C Screening 1970 Prostate Cancer Screening-PSA 1970 Pneumococcal vaccine <65 (1 of 2 - PCV) 12/11/1977 DTaP/Tdap/Td Vaccine (1 - Tdap) 12/11/1982 Hepatitis B Screening 12/11/1989 Regular Well Visit/Exam 18-64 12/11/1989 Zoster Vaccine (1 of 2) 12/11/2021 Covid-19 Vaccine (3 - season) 2023, 08/20/2020 Influenza Vaccine (#1) 2023 Colon Cancer Screening-Colonoscopy 01/21/20332022 Procedures Procedure Name Priority Date/Time Associated Diagnosis Comments COLONOSCOPY 01/21/2023 11:06 AM WIRE W[employer]ER from Last 3 Months or Most Recently Relevant to Health Maintenance Results * COLONOSCOPY (01/21/2023 11:06 AM WIRE W[employer]ER) Anatomical Region Laterality Modality Other Narrative Procedure Note Keisha Blankenship MD - 01/21/2023 11:06 AM CST [facility] Patient Name: Osmany Anthony Procedure Date: 01/21/2023 11:06AM Date of : 1970 Admit Type: Inpatient Age: 52 Gender: Male Note Status: Finalized Attending MD: Keisha Blankenship M.D. Procedure Date: 01/21/2023 Procedure: Colonoscopy Indications: Hematochezia Providers: Keisha Blankenship M.D., SARTHAK Calderon (Anesthesia Staff), Suma Dykes RN, Subhash, Wire Charger Referring MD: Andriy Morales M.D. Medicines: Monitored Anesthesia Care Complications: No immediate complications. Estimated Blood Loss: Estimated blood loss was minimal. Procedure: Pre-Anesthesia Assessment: - Prior to the procedure, a History and Physicalwas performed, and patient medications and allergieswere reviewed. The patient is competent. The risks and benefits of the procedure and the sedation optionsand risks were discussed with the patient. Allquestions were answered and informed consent was obtained. Patient identification and proposed procedure were verified by the physician, the nurse and the ambulatory care nurse in the procedure room. Mental Status Examination: alert and oriented. AirwayExamination: normal oropharyngeal airway and neck mobility. Respiratory Examination: clear to auscultation. CV Examination: normal. Prophylactic Antibiotics: The patient does not require prophylactic antibiotics. Prior Anticoagulants: The patient has taken no anticoagulant or antiplatelet agents. ASA Grade Assessment: III - A patient with severe systemic disease. After reviewing the risks and benefits,the patient was deemed in satisfactory condition to undergo the procedure. The anesthesia plan was touse monitored anesthesia care (MAC). Immediately priorto administration of medications, the patient was re-assessed for adequacy to receive sedatives. The heart rate, respiratory rate, oxygen saturations, blood pressure, adequacy of pulmonary ventilation,and response to care were monitored throughout the procedure. The physical status of the patient was re-assessed after the procedure. - The risks and benefits of the procedure and the sedation options and risks were discussed with the patient. All questions were answered and informed consent was obtained. After I obtained informed consent, the scope was passed under direct vision. Throughout theprocedure, the patient's blood pressure, pulse, and oxygen saturations were monitored continuously. The scopewas passed under direct vision. The Endoscope was introduced through the anus and advanced to the the cecum, identified by appendiceal orifice andileocecal valve. The colonoscopy was performed without difficulty. The patient tolerated the procedurewell. The quality of the bowel preparation was adequate.The bowel preparation used was Plenvu via split dose instruction. Findings: A 4 mm polyp was found in the recto-sigmoid colon. The polyp was sessile. The polyp was removed with a jumbo cold forceps. Resectionand retrieval were complete. Estimated blood loss was minimal. Multiple small-mouthed diverticula were found in the left colon. Non-bleeding internal hemorrhoids were found during retroflexion. The hemorrhoids were Grade III (internal hemorrhoids that prolapse but require manual reduction). The exam was otherwise without abnormality. Impression: - One 4 mm polyp at the recto-sigmoid colon,removed with a jumbo cold forceps. Resected andretrieved. - Diverticulosis in the left colon. - Non-bleeding internal hemorrhoids. - The examination was otherwise normal. Recommendation: - Await pathology results. - Preparation H suppository: Insert rectally as necessary. - Colace capsule(s) orally 100 mg daily. - Repeat colonoscopy in 5-10 years [facility]. Procedure Code(s): --- Professional --- 30481, Colonoscopy, flexible; with biopsy, singleor multiple Diagnosis Code(s): --- Professional --- D12.7, Benign neoplasm of rectosigmoid junction K64.2, Third degree hemorrhoids K92.1, Melena (includes Hematochezia) K57.30, Diverticulosis of large intestine without perforation or abscess without bleeding CPT copyright 2020 [employer] [place] [employer]. All rights reserved. The codes documented in this report are preliminary and upon tower watchman reviewmay be revised to meet current compliance requirements. Electronically signed by Keisha Blankenship M.D. Keisha Blankenship M.D. 01/21/2023 11:40:29 AM Number of Addenda: 0 Note Initiated On: 01/21/2023 11:06 AM us Keisha Blankenship MD ENDOSCOPY PROCEDURES Fi nal Result from Last 3 Months or Most Recently Relevant to Health Maintenance Insurance [employer] Advance Directives For more information, please contact: [phone] * Full Code (Latest Code Status on File) Date Activated Date Inactivated Comments 01/19/2023 8:25 PM 01/21/2023 5:03 PM Care Teams Booth Cleaner Relationship Specialty Start Date End Date Hilton Baron DO PCP - General Family Medicine 03/07/21
--- OUTSIDE RECORDS SUMMARY | 2024-04-09 09:41 | XMS_ITS | Clinical Summary ---
Author Organization [facility] Address [address] [place] [address] Care Team Providers Care Alarm Security Or Surveillance Monitor Name Role Phone John Paul Johnston MD Primary Care Provider [phone] Source Comments [facility],non-owned Affiliates and Associated Physician Practices is amultiple site organization consisting of ambulatory clinics and hospital sitesin [place], [place], [place] and [place]. This disclosure is being madepursuant to the Care Everywhere program and may not contain all information available regarding this patient. Last updated 17.[facility] Allergies No known active allergies Medications * Be aware that medications may not be up to date on this document. Alwaysverify current medications with the patient. Medication Sig Dispensed Refills Start Date End Date Status aspirin EC (Ecotrin) 81 MG tablet Take 1 (one) tablet by mouth once daily Active vitamin D3 (Cholecalcifer ol) 25 MCG (1000 UNITS) tablet Take 1 (one) tablet by mouth once daily Active cyanocobalamin (Vitamin B-12) 1000 MCG tablet Take 1 (one) tablet by mouth once daily Active psyllium (Metamucil) 58.6 % powder Take 1 (one) packet by mouth once daily Active baclofen (Lioresal) 10 MG tablet TAKE 1 TABLET BY MOUTH THREE TIMES A DAY NEEDED FOR PAIN 4 Active omeprazole (PriLOSEC) 20 MG capsuleIndicat ions:Olmstead's Esophagus,[place] lily Esophagitis,Ga stric Ulcer,Gastroes ophageal Reflux Disease Take 1 (one) capsule by mouth once daily Reasons: Olmstead's Esophagus, Esophagus Inflammation with Erosion, Gastroesophageal Reflux Disease, Stomach Ulcer 90 capsule 3 4 02/06/20 25 Active carvedilol (Coreg) 6.25 MG tabletIndicati ons:Bleeding Varicose Veins Take 1 (one) tablet by mouth 2 times daily with morning and evening meal Reasons: Bleeding Varicose Veins 180 tablet 3 4 02/06/20 25 Active furosemide (Lasix) 40 MG tablet TAKE 1 TABLET BY MOUTH EVERY DAY 90 tablet 3 5 Active furosemide (Lasix) 40 MG tablet Take 1 (one) tablet by mouth once daily as needed 4 03/12/19 25 Discontinued Active Problems Problem Noted Date Diagnosed Date Alcoholic cirrhosis 04/09/2023 Overview (04/09/2023): 04/09/23 Fibroscan CA 217, LSM 74.3 kPa ETOH abuse 03/07/2009 Cough 03/07/2009 Fall 03/07/2009 Head injury 03/07/2009 Overview (11/25/2014): 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 es 11/17/2008 Encounters Date Type Department Care Team Description 03/12/2024 Refill [facility] [address] [place] [address] Jairon Wyatt MD Refill Request 02/10/2024 Orders Only [facility] [place] [address] [place] [phone] Jairon Wyatt MD Secondary esophageal varices without bleeding (HCC) 02/06/2024 10:00 AM SENIOR INTERNATIONAL TAX MANAGER - 02/06/2024 10:30 AM SENIOR INTERNATIONAL TAX MANAGER Surgery [facility] [address] [place] [address] Jairon Wyatt MD EGD elgin chávez 02/06/2024 9:41 AM SENIOR INTERNATIONAL TAX MANAGER Anesthesia Event [facility] [address] [place] [address] Hilton Kwok MD Byrum, Michael, Anes Asst 02/06/2024 8:29 AM SENIOR INTERNATIONAL TAX MANAGER - 02/06/2024 10:29 AM SENIOR INTERNATIONAL TAX MANAGER Hospital Encounter [facility] [address] [place] [address] Jairon Wyatt MD Gastroenterology Discharge Disposition: Home or Self Care 02/06/2024 Travel 01/31/2024 Patient Outreach [facility] [address] [place] [phone] Crystal Freeman RN from Last 3 Months Family History Medical History Relation Name Comments Cancer Mother Alcohol abuse Sister Asthma Sister Drug Abuse Sister Relation Name Status Comments Mother Sister Social History Tobacco Use Types Packs/Day Years Used Date Smoking Tobacco: Former Cigarettes 1 20 0 04/09/1993 - 04/09/2013 Smokeless Tobacco: Never Tobacco Cessation:Counseling Given: Not Answered Alcohol Use Standard Drinks/Week Comments Not Currently 0 (1 standard drink = 0.6 oz pur e alcohol) socially Sex and Gender Information Value Date Recorded Sex Assigned at Not on file Gender Identity Not on file Sexual Orientation Not on file Last Filed Vital Signs Vital Sign Reading Time Taken Comments Blood Pressure 100/62 02/06/2024 10:20 AM SENIOR INTERNATIONAL TAX MANAGER Pulse 63 02/06/2024 10:21 AM SENIOR INTERNATIONAL TAX MANAGER Temperature 36.6 C (97.9 F) 02/06/2024 10:20 AM SENIOR INTERNATIONAL TAX MANAGER Respiratory Rate 16 02/06/2024 10:2 1 AM SENIOR INTERNATIONAL TAX MANAGER Oxygen Saturation 95% 02/06/2024 10: 21 AM SENIOR INTERNATIONAL TAX MANAGER Inhaled Oxygen Concentration - - Weight 96.1 kg (211 lb 14.4 oz) 02/06/2024 8:49 AM SENIOR INTERNATIONAL TAX MANAGER Height 180.3 cm (5' 11 ) 02/06/2024 8:49 AM SENIOR INTERNATIONAL TAX MANAGER Body Mass Index 29.55 02/06/2024 8:49 AM SENIOR INTERNATIONAL TAX MANAGER Plan of Treatment Upcoming Encounters Date Type Department Care Team (Latest Contact Info) Description 05/21/2024 7:55 AM CDT Hospital Encounter [facility] [address] [place] [phone] Jairon Wyatt MD [address] [place] [address] Surgery General 05/21/2024 7:55 AM CDT - 05/21/2024 8:25 AM CDT Surgery [facility] [address] [place] [phone] Jairon Wyatt MD [address] [place] [address] [address] [place] [address] EGD w/ garysh 07/06/2024 7:15 AM CDT Appointment [facility] [place] [address] Jairon Wyatt MD [address] [place] [address] [address] [place] [address] 07/06/2024 8:00 AM CDT Office Visit [facility] [address] [place] [address], [facility] [phone] Jairon Wyatt MD [address] [place] [address] [address] [place] [address] Scheduled Procedures Name Priority Associated Diagnoses Date/Ti me ESOPHAGOGASTRODUODENOSCOPY ( EGD) DIAGNOSTIC Esophagitis 05/21/2024 7:55 AM CDT Health Maintenance Due Date Last Done Comments COLOGUARD (AGES 45-75) - COLON CA SCREENING [address] COLONOGRAPHY - COLON CA SCREENING 1970 FIT - COLON CA SCREENING 1970 FLEX SIG - COLON CA SCREENING 1970 LIPID TESTING 1970 HIV SCREENING 12/11/1986 DTAP/TDAP/TD VACCINES (1 - Tdap) 12/11/1990 HEPATITIS B VACCINE (1 of 3 - 19+ 3-dose series) 12/11/1990 PNEUMOCOCCAL VACCINE 50+ (1 of 2 - PCV) 12/11/1990 LUNG CANCER SCREENING 12/11/2021 ZOSTER VACCINE (1 of 2) 12/11/2021 COVID-19 VACCINE (1 - 2023- season) 2023 INFLUENZA VACCINE (#1) 2023 DEPRESSION SCREENING 02/26/2024 SCREENING FOR DIABETES 12/30/2026 , 07/02/2023, 03/11/2009, Additional history exists COLONOSCOPY - COLON CA SCREENING 01/21/2033 01/21/2023 Colorectal Cancer Screening 01/21/2033 HEPATITIS C SCREENING Completed 03/09/2009 HIB VACCINE Aged Out No longer eligi ble based on patient's age to complete this topic HPV VACCINE Aged Out No longer eligi ble based on patient's age to complete this topic MENINGOCOCCAL (Group B) VACCINE Aged Out No longer eligible based on patient's age to complete this topic MENINGOCOCCAL VACCINE Aged Out No zhao roverto eligible based on patient's age to complete this topic Goals Goal Patient Goal Type Associated Problems Recent Progress Patient-Stated? Author Medication Management General No Magdalena Dunbar RN Note: Expected end date: Ongoing Interventions: Take all medications as prescribed Let your doctor know right away about any changes in your medications Make sure to request a refill of your medication at least one week prior to your last dose Procedures Procedure Name Priority Date/Time Associated Diagnosis Comments PATHOLOGY TISSUE Routine 02/06/2024 9:48 AM SENIOR INTERNATIONAL TAX MANAGER Alcoholic cirrhosis of liver with ascites (HCC) EGD Routine 02/06/2024 9:34 AM SENIOR INTERNATIONAL TAX MANAGER Alcoholic cirrhosis of liver with ascites (HCC) Elevated liver enzymes Alcoholic cirrhosis of liver without ascites (HCC) Secondary esophageal varices without bleeding (HCC) [place] [facility] EGD FLEX TRANSORAL DX 02/06/2024 9:34 AM SENIOR INTERNATIONAL TAX MANAGER Alcoholic cirrhosis of liver with ascites (HCC) Special Needs EGD 1st available Received: Today Rosalba Meneses RN [facility] Schedulers - Endoscopy [facility] please schedule this pt for routine EGD with Dr. Santos first available. Thanks. CINTHIA Navarrete Received Date Received Time Dec 31, 2023 9:55 AM COMPREHENSIVE METABOLIC PANEL Routine 12/31/2023 7:13 AM SENIOR INTERNATIONAL TAX MANAGER Alcoholic cirrhosis of liver with ascites (HCC) Elevated liver enzymes Alcoholic cirrhosis of liver without ascites (HCC) Secondary esophageal varices without bleeding (HCC) HEPATITIS SCREEN ACUTE Routine 03/09/2009 4:20 AM SENIOR INTERNATIONAL TAX MANAGER Acute Pancreatitis (Hcc) from Last 3 Months or Most Recently Relevant to Health Maintenance Results * PATHOLOGY TISSUE (02/06/2024 9:48 AM SENIOR INTERNATIONAL TAX MANAGER) Case Report Surgical Pathology Report Case: [id number] Authorizing Provider: Jairon Wyatt, Collected: 02/06/2024 09:48 AM Ordering Location: [facility] Received: 02/06/2024 11:01 AM Pathologist: Jodie Squires MD Specimen: Gastric, gastric biopsies r/o H. pylori 02/07/2024 3:31 PM [facility] Final Diagnosis Stomach, biopsy (A): - No histopathologic abnormality - No active inflammation or H. pylori organisms (H&E examination) 02/07/2024 3:31 PM [facility] Microscopic Description and Comment Microscopic examination substantiates the final diagnosis. 02/07/2024 3:31 PM [facility] Clinical History The patient is a 53-year-old man with cirrhosis and suspected esophageal varices. Operative procedure/findings: EGD - LA grade D esophagitis; portal hypertensive gastropathy and gastritis, biopsied to rule out H. pylori. 02/07/2024 3:31 PM [facility] Gross Description The requisition and specimen(s) are identified with the patient's name Osmany Anthony. Received in formalin, specimen A , are 4 pink-molina tissues, 0.2-0.5 cm in greatest dimension and 1.4 x 0.2 x 0.2 cm in aggregate, submitted in toto in cassette A1. DF 02/07/2024 3:31 PM [facility] Pathologist Location at [facility] 02/07/2024 3:31 PM [facility] Disclaimer The performance characteristics of all immunohistochemical and indirect immunofluorescence stains (if any) cited in this report were determined by the Histopathology Laboratory of [facility]. Some of these tests were developed by our own laboratory and have not been cleared or approved by the US Food and Drug Administration. The FDA does not require this test to go through premarket FDA review. These tests are used for clinical purposes. They should not be regarded as investigational or for research. This laboratory is certified under the Clinical Laboratory Improvement Amendments (CLIA) as qualified to perform high complexity clinical laboratory testing. This case has been personally reviewed and interpreted by the attending (teaching) pathologist. 02/07/2024 3:31 PM SENIOR INTERNATIONAL TAX MANAGER [facility] Embedded Images 02/07/2024 3:31 PM [facility] Biopsy, NOS GASTRIC CONTENTS SPECIMEN / Unknown 02/06/2024 9:48 AM SENIOR INTERNATIONAL TAX MANAGER 02/06/2024 11:01 AM SENIOR INTERNATIONAL TAX MANAGER Comment:Pre-op diagnosis: Alcoholic cirrhosis of liver with ascites (HCC) [K70.31] Jairon Wyatt MD LAB - PATHOLOG Y/CYTOLOGY ORDERABLES Performing Organization Address City/State/[facility] Co de Phone Number [facility] [address] [phone] * EGD (02/06/2024 9:34 AM SENIOR INTERNATIONAL TAX MANAGER) Report Endoscopy POC Endoscopy Department Report _ Patient Name: Osmany Anthony Procedure Date: 02/06/2024 9:34 AM Date of : 1970 Classification: Outpatient Gender: Male Ethnicity: Not or Race: White _ Providers: Jairon Wyatt Referring MD: John Paul Johnston (Referring MD) Procedure: Upper GI endoscopy Indications: Cirrhosis with suspected esophageal varices Medications: Monitored Anesthesia Care Description of Procedure: After obtaining informed consent, the endoscope was passed under direct vision. Throughout the procedure, the patient's blood pressure, pulse, and oxygen saturations were monitored continuously. The Endoscope was introduced through the mouth, and advanced to the second part of duodenum. The upper GI endoscopy was accomplished without difficulty. The patient tolerated the procedure well. Findings: Grade II, large (> 5 mm) varices were found in the lower third of the esophagus. LA Grade D (one or more mucosal breaks involving at least 75% of esophageal circumference) esophagitis with no bleeding was found. Moderate portal hypertensive gastropathy was found in the stomach. Localized mild inflammation characterized by erosions and erythema was found in the gastric antrum. Biopsies were taken with a cold forceps for Helicobacter pylori testing. One non-bleeding superficial gastric ulcer with no stigmata of bleeding was found in the prepyloric region of the stomach. The lesion was 3 mm in largest dimension. The examined duodenum was normal. Estimated Blood Loss: Estimated blood loss: none. Complications: No immediate complications. Impression: - Grade II and large (> 5 mm) esophageal varices. - LA Grade D reflux esophagitis with no bleeding. - Portal hypertensive gastropathy. - Gastritis. Biopsied. - Non-bleeding gastric ulcer with no stigmata of bleeding. - Normal examined duodenum. Recommendation: - Await pathology results. - Repeat upper endoscopy in 3 months for surveillance. - Use Prilosec (omeprazole) 20 mg PO daily for 3 months. - Increase Coreg to 6.25 mg bid. Attending Participation: I personally performed the entire procedure. Procedure Code(s): --- Professional --- 73952, Esophagogastroduo denoscopy, flexible, transoral; with biopsy, single or multiple Diagnosis Code(s): --- Professional --- K74.60, Unspecified cirrhosis of liver I85.10, Secondary esophageal varices without bleeding K21.00, Gastro-esophageal reflux disease with esophagitis, without bleeding K76.6, Portal hypertension K31.89, Other diseases of stomach and duodenum K29.70, Gastritis, unspecified, without bleeding K25.9, Gastric ulcer, unspecified as acute or chronic, without hemorrhage or perforation CPT copyright 2021 [employer]. All rights reserved. The codes documented in this report are preliminary and upon insurance coder review may be revised to meet current compliance requirements. Jairon Wyatt, 02/06/2024 9:59:28 AM Note Initiated On: 02/06/2024 9:34 AM Number of Addenda: [id number] [place] [address] PROVATION 02/06/2024 9:34 AM SENIOR INTERNATIONAL TAX MANAGER Jairon Wyatt MD GI PROCEDURE O RDERABLES [facility] [employer] * (ABNORMAL) COMPREHENSIVE METABOLIC PANEL (12/31/2023 7:13 AM SENIOR INTERNATIONAL TAX MANAGER) BUN 13 7 - 26 mg/dL 12/31/2023 8:20 AM [facility] Creatinine 0.93 0.71 - 1.16 mg/dL 12/31/2023 8:20 AM [facility] Sodium 140 136 - 145 mmol/L 12/31/2023 8:20 AM [facility] Potassium 4.0 3.5 - 4.5 mmol/L 12/31/2023 8:20 AM [facility] Chloride 105 98 - 107 mmol/L 12/31/2023 8:20 AM [facility] CO2 26 22 - 29 mmol/L 12/31/2023 8:20 AM [facility] Glucose 128(H) 70 - 99 mg/dL 12/31/2023 8:20 AM [facility] Calcium 9.6 8.4 - 10.2 mg/dL 12/31/2023 8:20 AM [facility] Protein Total 7.7 6.0 - 8.3 g/dL 12/31/2023 8:20 AM [facility] Albumin 4.0 3.4 - 5.0 g/dL 12/31/2023 8:20 AM [facility] Bilirubin Total 1.0 0.2 - 1.2 mg/dL 12/31/2023 8:20 AM [facility] Alkaline Phosphatase 183(H) 40 - 150 U/L 12/31/2023 8:20 AM [facility] ALT 16 5 - 55 U/L 12/31/2023 8:20 AM [facility] AST 18 5 - 34 U/L 12/31/2023 8:20 AM [facility] Anion Gap 9 6 - 16 12/31/2023 8:20 AM [facility] BUN/Creatinine Ratio 14 7 - 23 12/31/2023 8:20 AM [facility] Osmolality Calculated 292 275 - 295 mOsm/kg 12/31/2023 8:20 AM [facility] Albumin/Globulin Ratio 1.1 1.1 - 2.3 12/31/2023 8:20 AM [facility] eGFR by CKD-EPI >90 >=90 mL/min/1.7 3 m2 12/31/2023 8:20 AM [facility] Blood BLOOD SPECIMEN / Unknown Lab Venipuncture / Unknown 12/31/2023 7:13 AM SENIOR INTERNATIONAL TAX MANAGER 12/31/2023 7:50 AM SENIOR INTERNATIONAL TAX MANAGER Jairon Wyatt MD LAB - CHEMISTR Y ORDERABLES [address] [address], [facility] [phone] * HEPATITIS SCREEN ACUTE (03/09/2009 4:20 AM SENIOR INTERNATIONAL TAX MANAGER) Hepatitis A Virus Antibody IgM Nonreactive Nonreactive [facility] Hepatitis B Core Virus Antibody IgM Nonreactive Nonreactive [facility] Hepatitis B Virus Surface Antigen Nonreactive Nonreactive [facility] Hepatitis C Antibody Screen Nonreactive Nonreactive [facility] BLOOD SPECIMEN / Unknown 03/09/2009 4:20 AM SENIOR INTERNATIONAL TAX MANAGER 03/09/2009 4:28 AM SENIOR INTERNATIONAL TAX MANAGER Narrative Resulting Agency Comment Performed By [facility] [address] [place] [address] Hilton Campos MD LAB - CHEMISTRY ORDE ABDON [facility] [address] [place] [address] from Last 3 Months or Most Recently Relevant to Health Maintenance Advance Directives * Full Code (Latest Code Status on File) Date Activated Date Inactivated Comments 03/07/2009 6:15 PM 03/12/2009 1:51 AM * Full Code Date Activated Date Inactivated Comments 11/18/2008 5:59 AM 11/20/2008 8:53 PM Care Teams Alarm Security Or Surveillance Monitor Relationship Specialty Start Date End Date John Paul Johnston MD [address] [place] [phone] PCP - General Family Medicine 04/09/23
--- OUTSIDE RECORDS SUMMARY | 2024-04-09 09:41 | XMS_ITS | Referral Summary ---
Author Organization [facility] [address] [facility] lto Address [address] [place] [address] Care Team Providers Care Deck Engine Operator Name Role Phone Hilton Baron DO Primary Care Provider [phone] Allergies No known active allergies Medications cholecalcifero l (Dialyvite Vitamin D3 Max) 82809 unit tablet 9 Active omega-3 fatty acids-fish [...] major depression without psychotic featur es 11/17/2008 Social History Tobacco Use Types Packs/Day Years [...] on file Legal Sex Male 9:16 AM DIESEL LOCOMOTIVE FIRER Gender Identity Not on file Sexual Orientation Not on file Last Filed Vital Signs Vital Sign Reading Time Taken Comments Blood Pressure 99/61 01/21/2023 12:10 PM DIESEL LOCOMOTIVE FIRER Pulse 76 01/21/2023 12:10 PM DIESEL LOCOMOTIVE FIRER Temperature 36.7 C (98.1 F) 01/21/2023 7:31 AM DIESEL LOCOMOTIVE FIRER Respiratory Rate 16 01/21/2023 12:1 0 PM DIESEL LOCOMOTIVE FIRER Oxygen Saturation 96% 01/21/2023 12: 10 PM DIESEL LOCOMOTIVE FIRER Inhaled Oxygen Concentration - - Weight 88.3 kg (194 lb 11.2 oz) 01/19/2023 7:45 PM DIESEL LOCOMOTIVE FIRER Height 170.2 cm (5' 7 ) 01/19/2023 7:45 PM DIESEL LOCOMOTIVE FIRER Body Mass Index 30.49 01/19/2023 7:45 PM DIESEL LOCOMOTIVE FIRER Plan of Treatment Not on file Procedures Procedure Name Priority Date/Time Associated Diagnosis Comments COLONOSCOPY 01/21/2023 11:06 AM DIESEL LOCOMOTIVE FIRER from Last 3 Months or Most Recently Relevant to Health Maintenance Results * COLONOSCOPY (01/21/2023 11:06 AM DIESEL LOCOMOTIVE FIRER) Anatomical Region Laterality Modality Other Narrative Procedure Note Keisha Blankenship MD - 01/21/2023 11:06 AM CST [facility] Patient Name: Osmany Anthony Procedure Date: 01/21/2023 11:06AM Date of : 1970 Admit Type: Inpatient Age: 52 Gender: Male Note Status: Finalized Attending MD: Keisha Blankenship M.D. Procedure Date: 01/21/2023 Procedure: Colonoscopy Indications: Hematochezia Providers: Keisha Blankenship M.D., SARTHAK Calderon (Anesthesia Staff), Suma Dykes RN, [facility], Store Clerk Referring MD: Andriy Morales M.D. Medicines: Monitored [...] by the physician, the nurse and the cso in the procedure room. Mental Status Examination: [...] daily. - Repeat colonoscopy in 5-10 years formerly [facility]. Procedure Code(s): --- Professional --- 33427, Colonoscopy, flexible; with biopsy, singleor multiple Diagnosis Code(s): --- Professional --- D12.7, Benign neoplasm of rectosigmoid junction K64.2, Third degree hemorrhoids K92.1, Melena (includes Hematochezia) K57.30, Diverticulosis of large intestine without perforation or abscess without bleeding CPT copyright 2020 [employer]. All rights reserved. The codes documented in this report are preliminary and upon death surveys coder reviewmay be revised to meet current compliance requirements. Electronically signed by Keisha Blankenship M.D. Keisha Blankenship M.D. 01/21/2023 11:40:29 AM Number of Addenda: 0 Note Initiated On: 01/21/2023 11:06 AM Keisha Blankenship MD ENDOSCOPY PROCEDURES Fi nal Result from Last 3 Months or Most Recently Relevant to Health Maintenance Insurance [employer] ACCESS Advance Directives For more information, please contact: [phone] * Full Code (Latest Code Status on File) Date Activated Date Inactivated Comments 01/19/2023 8:25 PM 01/21/2023 5:03 PM Care Teams Deck Engine Operator Relationship Specialty Start Date End Date Hilton Baron DO PCP - General Family Medicine 03/07/21
--- OUTSIDE RECORDS SUMMARY | 2024-04-09 09:41 | XMS_ITS | Clinical Summary ---
Author Organization [facility] Address [address] [place] [address] Phone Care Team Providers Care Fiberglass Pipe Covering Supervisor Name Role Phone Hilton Baron Primary Care Provider [phone]- [phone] Allergies No known active allergies Medications Multiple Vitamin (ONE-A-DAY MENS PO) Take by mouth daily. Active [place]-3 Fatty Acids (FISH OIL PO) Take by mouth daily. Active B Complex Vitamins (VITAMIN B COMPLEX PO) Take by mouth daily. Active Cholecalciferol (VITAMIN D PO) Take by mouth once a week. Active Omeprazole-Sodium Bicarbonate (ZEGERID OTC PO) Take by mouth as needed. Active Aspirin 81 MG Tablet Take 81 mg by mouth daily. Active DIALYVITE VITAMIN D3 MAX 73015 units Tablet 1 08/12/2018 Active Active Problems Problem Noted Date Diagnosed Date Elevated LFTs 12/22/2018 Polycythemia 03/04/2018 Leukocytosis Resolved Problems Problem Noted Date Diagnosed Date Resolved Date Iron overload 12/22/2018 Family History Medical History Relation Name Comments Cancer Father Stroke Mother Relation Name Status Comments Father Alive Mother Alive Social History Tobacco Use Types Packs/Day Years Used Date Smoking Tobacco: Former Cigarettes Smokeless Tobacco: Never Alcohol Use Standard Drinks/Week Comments Yes 0 (1 standard drink = 0.6 oz pur e alcohol) occasionally Sex and Gender Information Value Date Recorded Sex Assigned at Not on file Legal Sex Male 10:22 PM CDT Gender Identity Not on file Sexual Orientation Not on file Last Filed Vital Signs Vital Sign Reading Time Taken Comments Blood Pressure 146/86 12/01/2018 2:49 PM CDT Pulse 99 12/01/2018 2:49 PM CDT Temperature 37 C (98.6 F) 12/01/2018 1:56 PM CDT Respiratory Rate 18 12/01/2018 2:49 PM CDT Oxygen Saturation 97% 12/01/2018 2:49 PM CDT Inhaled Oxygen Concentration - - Weight 99.3 kg (219 lb) 12/01/2018 1:56 PM CDT Height 170.2 cm (5' 7 ) 12/01/2018 1:56 PM CDT Body Mass Index 34.3 12/01/2018 1:56 PM CDT Plan of Treatment Health Maintenance Due Date Last Done Comments Hepatitis C Virus (HCV) Screening 1971 TdaP Immunization 1970 Hepatitis B Immunization (1 of 3 - 19+ 3-dose series) 12/11/1990 Colonoscopy 12/11/2016 Colorectal Cancer Screening 12/11/2016 Cologuard 12/11/2021 Immunochemical Fecal Occult Blood 12/11/2021 Pneumococcal Immunization (5 0+ years) (1 of 1 - PCV) 12/11/2021 Zoster Immunization (1 of 2) 12/11/2021 Influenza Immunization (#1) 2023 SARS-COV-2 Immunization (3 - 2023- season) 2023 09/17/2020, 08/20/2020 Respiratory Syncytial Virus (RSV) Immunization (Adult) (1 - 1-dose 75+ series) 12/11/2046 Meningococcal Immunization (ACWY) Aged Out No longer eligible b ased on patient's age to complete this topic Pneumococcal Immunization Combined Aged Out No longer eligible b ased on patient's age to complete this topic Rotavirus Immunization Aged Out No lo nger eligible based on patient's age to complete this topic Insurance Care Teams Fiberglass Pipe Covering Supervisor Relationship Specialty Start Date End Date Hilton Baron DO [address] [place] [address] PCP - General Family Medicine 03/04/18
--- OUTSIDE RECORDS SUMMARY | 2024-04-09 09:41 | XMS_ITS | Referral Summary ---
Author Organization [facility] Address [address] [place] [address] Care Team Providers Care Quarantine Inspector Name Role Phone John Paul Johnston MD Primary Care Provider [phone] [phone] Source Comments [facility],non-owned Affiliates and Associated Physician Practices is amultiple site organization consisting of ambulatory clinics and hospital sitesin [place], [place] and [place]. This disclosure is being madepursuant to the Care Everywhere program and may not contain all information available regarding this patient. Last updated 17.[facility] Encounters Date Type Department Care Team Description 03/12/2024 Refill [facility] [address] [place] [address] Jairon Wyatt MD Refill Request 02/10/2024 Orders Only [facility] [address] [place] [address] Jairon Wyatt MD Secondary esophageal varices without bleeding (HCC) 02/06/2024 Travel 02/06/2024 9:41 AM INTERNATIONAL TRADE ANALYST Anesthesia Event [facility] [address] [place] [address] Hilton Kwok MD Byrum, Michael, Anes Asst 02/06/2024 10:00 AM INTERNATIONAL TRADE ANALYST - 02/06/2024 10:30 AM INTERNATIONAL TRADE ANALYST Surgery [facility] [address] [place] [address] Jairon Wyatt MD EGD miguelGualberto saira 02/06/2024 8:29 AM INTERNATIONAL TRADE ANALYST - 02/06/2024 10:29 AM INTERNATIONAL TRADE ANALYST Hospital Encounter [facility] [address] [place] [address] Jairon Wyatt MD Gastroenterology Discharge Disposition: Home or Self Care 01/31/2024 Patient Outreach [facility] [address] [place] [address] Crystal Freeman, RN from Last 3 Months Allergies No known active allergies Medications * [...] Active omeprazole (PriLOSEC) 20 MG capsuleIndicat ions:[place]stead's Esophagus,[place] lily Esophagitis,Ga stric Ulcer,Gastroes ophageal Reflux Disease [...] tablet by mouth once daily as needed 03/12/19 25 Discontinued Active Problems Problem Noted [...] Comments Blood Pressure 100/62 02/06/2024 10:20 AM INTERNATIONAL TRADE ANALYST Pulse 63 02/06/2024 10:21 AM INTERNATIONAL TRADE ANALYST Temperature 36.6 C (97.9 F) 02/06/2024 10:20 AM INTERNATIONAL TRADE ANALYST Respiratory Rate 16 02/06/2024 10:2 1 AM INTERNATIONAL TRADE ANALYST Oxygen Saturation 95% 02/06/2024 10: 21 AM INTERNATIONAL TRADE ANALYST Inhaled Oxygen Concentration - - Weight 96.1 kg (211 lb 14.4 oz) 02/06/2024 8:49 AM INTERNATIONAL TRADE ANALYST Height 180.3 cm (5' 11 ) 02/06/2024 8:49 AM INTERNATIONAL TRADE ANALYST Body Mass Index 29.55 02/06/2024 8:49 AM INTERNATIONAL TRADE ANALYST Functional Status Functional Status Response Date of Assess ment Is person deaf or have serious hearing difficult y? No 02/06/2024 Is person blind or have serious difficulty seein g? No 02/06/2024 Does person have serious dif ficulty walking/climbing stairs? No 02/06/2024 Does person have difficulty dressing/bathing? No 02/06/2024 Does person have difficulty doing errands alone? No 02/06/2024 Cognitive Status Response Date of Assessm ent Does person have difficulty concentrating/remembering/making decisions? No 02/06/2024 Plan of Treatment Upcoming Encounters Date Type Department Care Team (Latest Contact Info) Description 05/21/2024 7:55 AM CDT Hospital Encounter [facility] [address] [place] [phone] Jairon Wyatt MD [address] [place] [address] [address] [place] [address] Surgery General 05/21/2024 7:55 AM CDT - 05/21/2024 8:25 AM CDT Surgery [facility] [address] [place] [phone] Jairon Wyatt MD [address] [place] [address] [address] [place] [address] EGD w/ saira 07/06/2024 7:15 AM CDT Appointment [facility] [address] [place] [phone] Jairon Wyatt MD [address] [place] [address] [address] [place] [address] 07/06/2024 8:00 AM CDT Office Visit [facility] - [facility] [address] [place] [address], [place] [address] Jairon Wyatt MD [address] [place] [address] [address] [place] [address] Scheduled Procedures Name Priority Associated Diagnoses Date/Ti me ESOPHAGOGASTRODUODENOSCOPY ( EGD) DIAGNOSTIC Esophagitis 05/21/2024 7:55 AM CDT Goals Goal Patient Goal Type Associated Problems Recent Progress Patient-Stated? Author Medication Management General Magdalena Barlow, RN Note: Expected end date: Ongoing Interventions: Take all medications as prescribed Let your doctor know right away about any changes in your medications Make sure to request a refill of your medication at least one week prior to your last dose Procedures Procedure Name Priority Date/Time Associated Diagnosis Comments PATHOLOGY TISSUE Routine 02/06/2024 9:48 AM INTERNATIONAL TRADE ANALYST Alcoholic cirrhosis of liver with ascites (HCC) EGD Routine 02/06/2024 9:34 AM INTERNATIONAL TRADE ANALYST Alcoholic cirrhosis of liver with ascites (HCC) Elevated liver enzymes Alcoholic cirrhosis of liver without ascites (HCC) Secondary esophageal varices without bleeding (HCC) [place] [facility] EGD FLEX TRANSORAL DX 02/06/2024 9:34 AM INTERNATIONAL TRADE ANALYST Alcoholic cirrhosis of liver with ascites (HCC) Special Needs EGD 1st available Received: Today Rosalba Meneses RN P [facility] Schedulers - Endoscopy [facility] please schedule this pt for routine EGD with Dr. Santos first available. Thanks. CINTHIA Navarrete Received Date Received Time Dec 31, 2023 9:55 AM COMPREHENSIVE METABOLIC PANEL Routine 12/31/2023 7:13 AM INTERNATIONAL TRADE ANALYST Alcoholic cirrhosis of liver with ascites (HCC) Elevated liver enzymes Alcoholic cirrhosis of liver without ascites (HCC) Secondary esophageal varices without bleeding (HCC) HEPATITIS SCREEN ACUTE Routine 03/09/2009 4:20 AM INTERNATIONAL TRADE ANALYST Acute Pancreatitis (Hcc) from Last 3 Months or Most Recently Relevant to Health Maintenance Results * PATHOLOGY TISSUE (02/06/2024 9:48 AM INTERNATIONAL TRADE ANALYST) Case Report Surgical Pathology Report Case: [id number] Authorizing Provider: Jairon Wyatt, Collected: 02/06/2024 09:48 AM Ordering Location: [facility] Received: 02/06/2024 11:01 AM Pathologist: Jodie Squires MD Specimen: Gastric, gastric biopsies r/o H. pylori 02/07/2024 3:31 PM [facility] Final Diagnosis Stomach, biopsy (A): - No histopathologic abnormality - No active inflammation or H. pylori organisms (H&E examination) 02/07/2024 3:31 PM [facility] Microscopic Description and Comment Microscopic examination substantiates the final diagnosis. 02/07/2024 3:31 PM [facility] Clinical History The patient is a 53-year-old man with cirrhosis and suspected esophageal varices. Operative procedure/findings: EGD - LA grade D esophagitis; portal hypertensive gastropathy and gastritis, biopsied to rule out H. pylori. 02/07/2024 3:31 PM [facility] Gross Description The requisition and specimen(s) are identified with the patient's name Osmany Anthony. Received in formalin, specimen A , are 4 pink-molina tissues, 0.2-0.5 cm in greatest dimension and 1.4 x 0.2 x 0.2 cm in aggregate, submitted in toto in cassette A1. DF 02/07/2024 3:31 PM [facility] Pathologist Location at [facility] 02/07/2024 3:31 PM [facility] Disclaimer The performance characteristics of all immunohistochemical and indirect immunofluorescence stains (if any) cited in this report were determined by the Histopathology Laboratory of [facility]. Some of these tests were developed [...] the attending (teaching) pathologist. 02/07/2024 3:31 PM [facility] Embedded Images 02/07/2024 3:31 PM [facility] Biopsy, NOS GASTRIC CONTENTS SPECIMEN / Unknown 02/06/2024 9:48 AM INTERNATIONAL TRADE ANALYST 02/06/2024 11:01 AM [facility] Comment:Pre-op diagnosis: Alcoholic cirrhosis of liver with ascites (HCC) [K70.31] Jairon Wyatt MD LAB - PATHOLOG Y/CYTOLOGY ORDERABLES [facility] [address] [place] [address], [facility] [phone] * EGD (02/06/2024 9:34 AM INTERNATIONAL TRADE ANALYST) Report Endoscopy POC Endoscopy Department Report _ [...] entire procedure. Procedure Code(s): --- Professional --- 99528, Esophagogastroduo denoscopy, flexible, transoral; with biopsy, single or multiple Diagnosis Code(s): --- Professional --- K74.60, Unspecified cirrhosis of liver I85.10, Secondary esophageal varices without bleeding K21.00, Gastro-esophageal reflux disease with esophagitis, without bleeding K76.6, Portal hypertension K31.89, Other diseases of stomach and duodenum K29.70, Gastritis, unspecified, without bleeding K25.9, Gastric ulcer, unspecified as acute or chronic, without hemorrhage or perforation CPT copyright 2021 [employer]. All rights reserved. The codes documented in this report are preliminary and upon presentation manager review may be revised to meet current compliance requirements. Jairon Wyatt, 02/06/2024 9:59:28 AM Note Initiated On: 02/06/2024 9:34 AM Number of Addenda: [id number] [place] [address] PROVATION 02/06/2024 9:34 AM INTERNATIONAL TRADE ANALYST Jairon Wyatt MD GI PROCEDURE O RDERABLES [facility] [employer]OVATION * (ABNORMAL) COMPREHENSIVE METABOLIC PANEL (12/31/2023 7:13 AM INTERNATIONAL TRADE ANALYST) BUN 13 7 - 26 mg/dL 12/31/2023 8:20 AM [facility] Creatinine 0.93 0.71 - 1.16 mg/dL 12/31/2023 8:20 AM [facility] Sodium 140 136 - 145 mmol/L 12/31/2023 8:20 AM [facility] Potassium 4.0 3.5 - 4.5 mmol/L 12/31/2023 8:20 AM [facility] Chloride 105 98 - 107 mmol/L 12/31/2023 8:20 AM [facility] CO2 26 22 - 29 mmol/L 12/31/2023 8:20 AM [facility] Glucose 128(H) 70 - 99 mg/dL 12/31/2023 8:20 AM [facility] Calcium 9.6 8.4 - 10.2 mg/dL 12/31/2023 8:20 AM [facility] Protein Total 7.7 6.0 - 8.3 g/dL 12/31/2023 8:20 AM [facility] Albumin 4.0 3.4 - 5.0 g/dL 12/31/2023 8:20 AM [facility] Bilirubin Total 1.0 0.2 - 1.2 mg/dL 12/31/2023 8:20 AM [facility] Alkaline Phosphatase 183(H) 40 - 150 U/L 12/31/2023 8:20 AM [facility] ALT 16 5 - 55 U/L 12/31/2023 8:20 AM [facility] AST 18 5 - 34 U/L 12/31/2023 8:20 AM [facility] Anion Gap 9 6 - 16 12/31/2023 8:20 AM [facility] BUN/Creatinine Ratio 14 7 - 23 12/31/2023 8:20 AM [facility] Osmolality Calculated 292 275 - 295 mOsm/kg 12/31/2023 8:20 AM [facility] Albumin/Globulin Ratio 1.1 1.1 - 2.3 12/31/2023 8:20 AM [facility] eGFR by CKD-EPI >90 >=90 mL/min/1.7 3 m2 12/31/2023 8:20 AM [facility] Blood BLOOD SPECIMEN / Unknown Lab Venipuncture / Unknown 12/31/2023 7:13 AM INTERNATIONAL TRADE ANALYST 12/31/2023 7:50 AM INTERNATIONAL TRADE ANALYST Jairon Wyatt MD LAB - CHEMISTR Y ORDERABLES [facility] [address] [place] [address], [facility] [phone] * HEPATITIS SCREEN ACUTE (03/09/2009 4:20 AM INTERNATIONAL TRADE ANALYST) Hepatitis A Virus Antibody IgM Nonreactive Nonreactive [facility] Hepatitis B Core Virus Antibody IgM Nonreactive Nonreactive [facility] Hepatitis B Virus Surface Antigen Nonreactive Nonreactive [facility] Hepatitis C Antibody Screen Nonreactive Nonreactive [facility] BLOOD SPECIMEN / Unknown 03/09/2009 4:20 AM INTERNATIONAL TRADE ANALYST 03/09/2009 4:28 AM INTERNATIONAL TRADE ANALYST Narrative Resulting Agency Comment Performed By [facility] [address] [place] [address] Hilton Campos MD LAB - CHEMISTRY [facility] [address] [place] [address] from Last 3 Months or Most Recently Relevant to Health Maintenance Advance Directives * Full Code (Latest Code Status on File) Date Activated Date Inactivated Comments 03/07/2009 6:15 PM 03/12/2009 1:51 AM * Full Code Date Activated Date Inactivated Comments 11/18/2008 5:59 AM 11/20/2008 8:53 PM Care Teams Quarantine Inspector Relationship Specialty Start Date End Date John Paul Johnston MD [address] [facility] [address] PCP - General Family Medicine 04/09/23
--- OUTSIDE RECORDS SUMMARY | 2024-04-09 09:41 | XMS_ITS | Patient Health Summary ---
Author Organization [facility] Address [address] [address] Care Team Providers Care Handbag Designer Name Role Phone John Paul Johnston MD Primary Care Provider [phone] Note from [facility]– [place]non-owned Affiliates and Associated Physician Practices is amultiple site organization consisting of ambulatory clinics and hospital sitesin [place], [place], [place] and [place]. This disclosure is being madepursuant to the Care Everywhere program and may not contain all information available regarding this patient. Last updated 17.[facility] Allergies No known active allergies Medications * Be aware that medications may not be up to date on this document. Alwaysverify current medications with the patient. * aspirin EC (Ecotrin) 81 MG tablet Take 1 (one) tablet by mouth once daily * vitamin D3 (Cholecalciferol) 25 MCG (1000 UNITS) tablet Take 1 (one) tablet by mouth once daily * cyanocobalamin (Vitamin B-12) 1000 MCG tablet Take 1 (one) tablet by mouth once daily * psyllium (Metamucil) 58.6 % powder Take 1 (one) packet by mouth once daily * baclofen (Lioresal) 10 MG tablet(Started 06/21/2023) TAKE 1 TABLET BY MOUTH THREE TIMES A DAY NEEDED FOR PAIN * omeprazole (PriLOSEC) 20 MG capsule(Started 02/06/2024) Take 1 (one) capsule by mouth once daily Reasons: Olmstead's Esophagus, Esophagus Inflammation with Erosion, Gastroesophageal Reflux Disease, Stomach Ulcer 3 refills by 02/05/2025 * carvedilol (Coreg) 6.25 MG tablet(Started 02/06/2024) Take 1 (one) tablet by mouth 2 times daily with morning and evening meal Reasons: Bleeding VaricoseVeins 3 refills by 02/05/2025 * furosemide (Lasix) 40 MG tablet(Started 03/12/2024) TAKE 1 TABLET BY MOUTH EVERY DAY 3 refills by 03/12/2025 Ended Medications* furosemide (Lasix) 40 MG tablet(Started 07/02/2023) (Discontinued) Take 1 (one) tablet by mouth once daily as needed Active Problems Problem Noted Date Diagnosed Date Alcoholic cirrhosis 04/09/2023 ETOH abuse 03/07/2009 Cough 03/07/2009 Fall 03/07/2009 Head injury 03/07/2009 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 es [...] Comments Blood Pressure 100/62 02/06/2024 10:20 AM CUSTOM SEAMSTRESS Pulse 63 02/06/2024 10:21 AM CUSTOM SEAMSTRESS Temperature 36.6 C (97.9 F) 02/06/2024 10:20 AM CUSTOM SEAMSTRESS Respiratory Rate 16 02/06/2024 10:2 1 AM CUSTOM SEAMSTRESS Oxygen Saturation 95% 02/06/2024 10: 21 AM CUSTOM SEAMSTRESS Inhaled Oxygen Concentration - - Weight 96.1 kg (211 lb 14.4 oz) 02/06/2024 8:49 AM CUSTOM SEAMSTRESS Height 180.3 cm (5' 11 ) 02/06/2024 8:49 AM CUSTOM SEAMSTRESS Body Mass Index 29.55 02/06/2024 8:49 AM CUSTOM SEAMSTRESS Procedures * PATHOLOGY TISSUE(Performed 02/06/2024) Performed for Alcoholic cirrhosis of liver with ascites (HCC) * EGD(Performed 02/06/2024) Performed for Alcoholic cirrhosis of liver with ascites (HCC), Elevated liver enzymes, Alcoholic cirrhosis of liver without ascites (HCC), Secondary esophageal varices without bleeding (HCC) * [place] ED EGD FLEX TRANSORAL DX(Performed 02/06/2024) Performed for Alcoholic cirrhosis of liver with ascites (HCC) * US ABDOMEN LIMITED(Performed 12/31/2023) Performed for Alcoholic cirrhosis of liver with ascites (HCC), Elevated liver enzymes, Alcoholic cirrhosis of liver without ascites (HCC), Secondary esophageal varices without bleeding (HCC) * PT-INR [facility](Performed 12/31/2023) Performed for Alcoholic cirrhosis of liver with ascites (HCC), Elevated liver enzymes, Alcoholic cirrhosis of liver without ascites (HCC), Secondary esophageal varices without bleeding (HCC) * COMPREHENSIVE METABOLIC PANEL(Performed 12/31/2023) Performed for Alcoholic cirrhosis of liver with ascites (HCC), Elevated liver enzymes, Alcoholic cirrhosis of liver without ascites (HCC), Secondary esophageal varices without bleeding (HCC) * CBC W AUTO DIFFERENTIAL(Performed 12/31/2023) Performed for Alcoholic cirrhosis of liver with ascites (HCC), Elevated liver enzymes, Alcoholic cirrhosis of liver without ascites (HCC), Secondary esophageal varices without bleeding (HCC) * ALPHA FETOPROTEIN BLOOD TUMOR MARKER(Performed 12/31/2023) Performed for Alcoholic cirrhosis of liver with ascites (HCC), Elevated liver enzymes, Alcoholic cirrhosis of liver without ascites (HCC), Secondary esophageal varices without bleeding (HCC) * US ABDOMEN LIMITED(Performed 07/02/2023) Performed for Alcoholic cirrhosis of liver without ascites (HCC), Secondary esophageal varices without bleeding (HCC) * PHOSPHATIDYLETHANOL (PETH)(Performed 07/02/2023) Performed for Alcoholic cirrhosis of liver without ascites (HCC), Secondary esophageal varices without bleeding (HCC) * PT-INR [facility](Performed 07/02/2023) Performed for Alcoholic cirrhosis of liver without ascites (HCC), Secondary esophageal varices without bleeding (HCC) * COMPREHENSIVE METABOLIC PANEL(Performed 07/02/2023) Performed for Alcoholic cirrhosis of liver without ascites (HCC), Secondary esophageal varices without bleeding (HCC) * CBC W AUTO DIFFERENTIAL(Performed 07/02/2023) Performed for Alcoholic cirrhosis of liver without ascites (HCC), Secondary esophageal varices without bleeding (HCC) * ALPHA FETOPROTEIN BLOOD TUMOR MARKER(Performed 07/02/2023) Performed for Alcoholic cirrhosis of liver without ascites (HCC), Secondary esophageal varices without bleeding (HCC) * AK LIVER ELASTOGRAPHY(Performed 04/09/2023) Performed for Elevated liver enzymes * CARDIAC EKG ORDER(Performed 03/15/2009) * CARDIAC RHYTHM STRIP ORDER(Performed 03/15/2009) * POTASSIUM BLOOD(Performed 03/11/2009) Performed for Acute Pancreatitis (Hcc) * MAGNESIUM BLOOD(Performed 03/11/2009) Performed for Acute Pancreatitis (Hcc) * COMPREHENSIVE METABOLIC PANEL(Performed 03/11/2009) Performed for Acute Pancreatitis (Hcc) * COMPREHENSIVE METABOLIC PANEL(Performed 03/10/2009) Performed for Acute Pancreatitis (Hcc) * LIPASE BLOOD(Performed 03/10/2009) Performed for Acute Pancreatitis (Hcc) * AMYLASE BLOOD(Performed 03/10/2009) Performed for Acute Pancreatitis (Hcc) * CBC W AUTO DIFFERENTIAL(Performed 03/10/2009) Performed for Acute Pancreatitis (Hcc) * MAGNESIUM BLOOD(Performed 03/09/2009) Performed for Acute Pancreatitis (Hcc) * HEPATITIS B SURFACE ANTIGEN W RFLX CONFIRMATION(Performed 03/09/2009) Performed for Acute Pancreatitis (Hcc) * LIPASE BLOOD(Performed 03/09/2009) Performed for Acute Pancreatitis (Hcc) * CARDIAC EKG ORDER(Performed 03/09/2009) * HEPATITIS SCREEN ACUTE(Performed 03/09/2009) Performed for Acute Pancreatitis (Hcc) * COAGULATION PANEL W D-DIMER(Performed 03/09/2009) Performed for Acute Pancreatitis (Hcc) * CBC W AUTO DIFFERENTIAL(Performed 03/09/2009) Performed for Acute Pancreatitis (Hcc) * BASIC METABOLIC PANEL (CALCIUM TOTAL)(Performed 03/09/2009) Performed for Acute Pancreatitis (Hcc) * HEPATIC FUNCTION PANEL(Performed 03/09/2009) Performed for Acute Pancreatitis (Hcc) * CYTOLOGY NON-TEXTILES AND CLOTHING TEACHER PANEL(Performed 03/09/2009) Performed for Acute Pancreatitis (Hcc) * GROSS + MICRO EXAM(Performed 03/09/2009) Performed for Acute Pancreatitis (Hcc) * OCCULT BLOOD FECES(Performed 03/08/2009) Performed for Acute Pancreatitis (Hcc) * CULTURE STOOL PANEL(Performed 03/08/2009) * O+P ANTIGEN PANEL(Performed 03/08/2009) Performed for Acute Pancreatitis (Hcc) * WBC SMEAR(Performed 03/08/2009) Performed for Acute Pancreatitis (Hcc) * US ABDOMEN LIMITED(Performed 03/08/2009) Performed for Acute Pancreatitis (Hcc) * TRIGLYCERIDES BLOOD(Performed 03/08/2009) Performed for Acute Pancreatitis (Hcc) * LIPASE BLOOD(Performed 03/08/2009) Performed for Acute Pancreatitis (Hcc) * MAGNESIUM BLOOD(Performed 03/08/2009) Performed for Acute Pancreatitis (Hcc) * BASIC METABOLIC PANEL (CALCIUM TOTAL)(Performed 03/08/2009) Performed for Acute Pancreatitis (Hcc) * CBC W AUTO DIFFERENTIAL(Performed 03/08/2009) Performed for Acute Pancreatitis (Hcc) * ALCOHOL ETHYL BLOOD(Performed 03/07/2009) Performed for Acute Pancreatitis (Hcc) * CT HEAD WO CONTRAST(Performed 03/07/2009) Performed for Gi Bleed * URINALYSIS REFLEX TO MICROSCOPIC NO CULTURE(Performed 03/07/2009) * DRUG SCREEN URINE ABUSE INHOUSE(Performed 03/07/2009) * MYOGLOBIN BLOOD(Performed 03/07/2009) * TROPONIN I(Performed 03/07/2009) * LIPASE BLOOD(Performed 03/07/2009) * DRUG SCREEN TOX LIMITED BLOOD PANEL(Performed 03/07/2009) * COMPREHENSIVE METABOLIC PANEL(Performed 03/07/2009) * CBC W AUTO DIFFERENTIAL(Performed 03/07/2009) * XR CHEST 1VW PORTABLE(Performed 03/07/2009) Performed for Alcoholism (Hcc) * XR HUMERUS RIGHT 2VW OR MORE(Performed 03/07/2009) Performed for Acute Pancreatitis (Hcc) * TSH(Performed 11/18/2008) * RPR(Performed 11/18/2008) * DRUG SCREEN URINE ABUSE INHOUSE(Performed 11/17/2008) * DRUG SCREEN TOX LIMITED BLOOD PANEL(Performed 11/17/2008) * COMPREHENSIVE METABOLIC PANEL(Performed 11/17/2008) * CBC W AUTO DIFFERENTIAL(Performed 11/17/2008) Results * PATHOLOGY TISSUE (02/06/2024 9:48 AM CUSTOM SEAMSTRESS) Case Report Surgical Pathology Report Case: [id number] Authorizing Provider: Jairon Wyatt, Collected: 02/06/2024 09:48 AM Ordering Location: [facility] END[facility]COPY Received: 02/06/2024 11:01 AM Pathologist: Jodie Squires MD Specimen: Gastric, gastric biopsies r/o H. pylori 02/07/2024 3:31 PM C[facility]OM SEAMSTRESS [facility] Final Diagnosis Stomach, biopsy (A): - No histopathologic abnormality - No active inflammation or H. pylori organisms (H&E examination) 02/07/2024 3:31 PM C[facility]OM SEAMSTRESS [facility] Microscopic Description and Comment Microscopic examination substantiates the final diagnosis. 02/07/2024 3:31 PM [facility] Clinical History The patient is a 53-year-old man with cirrhosis and suspected esophageal varices. Operative procedure/findings: EGD - LA grade D esophagitis; portal hypertensive gastropathy and gastritis, biopsied to rule out H. pylori. 02/07/2024 3:31 PM [facility] Gross Description The requisition and specimen(s) are identified with the patient's name Osmany Anthony. Received in formalin, specimen A , are 4 pink-de leon tissues, 0.2-0.5 cm in greatest dimension and 1.4 x 0.2 x 0.2 cm in aggregate, submitted in toto in cassette A1. DF 02/07/2024 3:31 PM [facility] Pathologist Location at [facility] 02/07/2024 3:31 PM [facility] Disclaimer The performance characteristics of all immunohistochemical and indirect immunofluorescence stains (if any) cited in this report were determined by the Histopathology Laboratory of [facility]. Some of these tests were developed [...] the attending (teaching) pathologist. 02/07/2024 3:31 PM [facility] Embedded Images 02/07/2024 3:31 PM [facility] Biopsy, NOS GASTRIC CONTENTS SPECIMEN / Unknown 02/06/2024 9:48 AM CUSTOM SEAMSTRESS 02/06/2024 11:01 AM CUSTOM SEAMSTRESS Comment:Pre-op diagnosis: Alcoholic cirrhosis of liver with ascites (HCC) [K70.31] Jairon Wyatt MD LAB - PATHOLOG Y/CYTOLOGY ORDERABLES [facility] [address] [place] [address], [facility] [phone] * EGD (02/06/2024 9:34 AM CUSTOM SEAMSTRESS) Report Endoscopy POC Endoscopy Department Report _ [...] entire procedure. Procedure Code(s): --- Professional --- 88015, Esophagogastroduo denoscopy, flexible, transoral; with biopsy, single or multiple Diagnosis Code(s): --- Professional --- K74.60, Unspecified cirrhosis of liver I85.10, Secondary esophageal varices without bleeding K21.00, Gastro-esophageal reflux disease with esophagitis, without bleeding K76.6, Portal hypertension K31.89, Other diseases of stomach and duodenum K29.70, Gastritis, unspecified, without bleeding K25.9, Gastric ulcer, unspecified as acute or chronic, without hemorrhage or perforation CPT copyright 2021 [employer]. All rights reserved. The codes documented in this report are preliminary and upon electronic health records specialist review may be revised to meet current compliance requirements. Jairon Wyatt, 02/06/2024 9:59:28 AM Note Initiated On: 02/06/2024 9:34 AM Number of Addenda: [id number] [place] [address] PROVATION 02/06/2024 9:34 AM CUSTOM SEAMSTRESS Jairon Wyatt MD GI PROCEDURE O RDERABLES [facility] PROVATION * US ABDOMEN LIMITED (12/31/2023 8:02 AM CUSTOM SEAMSTRESS) Only the most recent of3 resultswithin the time period is included. Anatomical Region Laterality Modality Abdomen Ultrasound 12/31/2023 8:42 AM CUSTOM SEAMSTRESS Impressions 12/31/2023 2:29 PM CUSTOM SEAMSTRESS IMPRESSION: Liver Visualization Score A: No or minimal limitations. US-1 Negative. Repeat surveillance US in 6 months. Patent hepatic vasculature. 1.Hepatic cirrhosis with sequela of portal hypertension including ascites and splenomegaly. Report drafted by Jase Brown MD > Dictated by Jase Brown MD (Electrical Systems Design Engineer) 12/31/2023 8:42 AM Igor White MD have personally reviewed and interpreted this examination/study. > Interpreting Provider: Igor Munguia MD on 12/31/2023 2:29 PM Narrative 12/31/2023 2:29 PM CUST[facility] SEAMSTRESS PROCEDURE: US ABDOMEN LIMITED, DATE/TIME OF EXAM: 12/31/2023 8:02 AM, LOCATION [facility] INDICATION: K70.31: Alcoholic cirrhosis of liver with ascites (HCC) R74.8: Elevated liver enzymes K70.30: Alcoholic cirrhosis of liver without ascites (HCC) I85.10: Secondary esophageal varices without bleeding (HCC) ADDITIONAL CLINICAL INFORMATION: Ordering Provider Reason For Exam: HCC screening Technologist Note: Additional: COMPARISON: Abdomen ultrasound from 07/02/2023 FINDINGS: Liver Visualization Score: No or minimal limitations in liver visualization Liver Morphology: The liver has a coarse echotexture and nodular surface. Liver Observations: None. Main Portal Vein: Color Doppler evaluation demonstrates patency of the main portal vein. Hepatic Veins: Color Doppler evaluation demonstrates patency of the hepatic veins. Bile Ducts: The common bile duct is nondilated, measuring 3.6 mm. No intrahepatic or extrahepatic biliary dilation. Gallbladder: Gallstones are seen within the gallbladder without pericholecystic fluid. Sonographic Ibrahim's sign is negative. Ascites: Small volume ascites is present. Spleen: The spleen measures 19.5 cm in length. Pancreas: The visible pancreas is normal in echogenicity. Right Kidney: The right kidney measures 12.4 cm in length. Limited views of the right kidney reveal no evidence of nephrolithiasis or hydronephrosis. No discrete mass identified. Procedure Note Dawn Munguia MD - 12/31/2023 PROCEDURE: US ABDOMEN LIMITED, DATE/TIME OF EXAM: 12/31/2023 8:02 AM, LOCATION [facility] INDICATION: K70.31: Alcoholic cirrhosis of liver with ascites (HCC) R74.8: Elevated liver enzymes K70.30: Alcoholic cirrhosis of liver without ascites (HCC) I85.10: Secondary esophageal varices without bleeding (HCC) ADDITIONAL CLINICAL INFORMATION: Ordering Provider Reason For Exam: HCC screening Technologist Note: Additional: COMPARISON: Abdomen ultrasound from 07/02/2023 FINDINGS: Liver Visualization Score: No or minimal limitations in liver visualization Liver Morphology: The liver has a coarse echotexture and nodular surface. Liver Observations: None. Main Portal Vein: Color Doppler evaluation demonstrates patency of the main portal vein. Hepatic Veins: Color Doppler evaluation demonstrates patency of the hepatic veins. Bile Ducts: The common bile duct is nondilated, measuring 3.6 mm. No intrahepatic or extrahepatic biliary dilation. Gallbladder: Gallstones are seen within the gallbladder without pericholecysticfluid. Sonographic Ibrahim's sign is negative. Ascites: Small volume ascites is present. Spleen: The spleen measures 19.5 cm in length. Pancreas: The visible pancreas is normal in echogenicity. Right Kidney: The right kidney measures 12.4 cm in length. Limited views of the right kidney reveal no evidence of nephrolithiasis or hydronephrosis. No discrete mass identified. IMPRESSION: Liver Visualization Score A: No or minimal limitations. US-1 Negative. Repeat surveillance US in 6 months. Patent hepatic vasculature. 1.Hepatic cirrhosis with sequela of portal hypertension includingascites and splenomegaly. Report drafted by Jase Brown MD > Dictated by Jase Brown MD (Electrical Systems Design Engineer) 12/31/2023 8:42 AM IIgor MD have personally reviewed and interpreted this examination/study. > Interpreting Provider: Igor Munguia MD on 12/31/2023 2:29 PM Jairon Wyatt MD US ORDERABLES * PT-INR [facility] (12/31/2023 7:13 AM CUSTOM SEAMSTRESS) Only the most recent of2 resultswithin the time period is included. PT 14.3 12.1 - 14.8 Seconds 12/31/2023 8:12 AM [facility] INR 1.1 See Comment 12/31/2023 8:12 AM [facility] Comment:The suggested therap eutic range for standard coumadin (warfarin) therapy is an INR of 2.0-3.0. For high-risk patients (Mechanical Mitral Valve Prosthesis, etc.), the suggested prophylactic therapeutic range is an INR of 2.5-3.5. Blood BLOOD SPECIMEN / Unknown Lab Venipuncture / Unknown 12/31/2023 7:13 AM CUSTOM SEAMSTRESS 12/31/2023 7:48 AM CUSTOM SEAMSTRESS Jairon Wyatt MD LAB - COAGULAT ION ORDERABLES Performing Organization Address [facility] Co de Phone Number [address] [address], [facility] [phone] * ALPHA FETOPROTEIN BLOOD TUMOR MARKER (12/31/2023 7:13 AM CUSTOM SEAMSTRESS) Only the most recent of2 resultswithin the time period is included. [facility] Alpha-Fetoprote in Tumor Marker 4.2 <=8.3 ng/mL 12/31/2023 8:35 AM [facility] Comment: AFP values will vary depending on testing procedure used. Results are not comparable across different methods. AFP values obtained by [facility] using an Portillo Alinity Immunoassay. Blood BLOOD SPECIMEN / Unknown Lab Venipuncture / Unknown 12/31/2023 7:13 AM CUSTOM SEAMSTRESS 12/31/2023 7:49 AM CUSTOM SEAMSTRESS Jairon Wyatt MD LAB - CHEMISTR Y ORDERABLES Performing Organization Address City/[facility]/ZIP Co de Phone Number [address] [address], [place] [phone] * (ABNORMAL) CBC WITH DIFFERENTIAL (12/31/2023 7:13 AM CUSTOM SEAMSTRESS) Only the most recent of7 resultswithin the time period is included. WBC 11.0(H) 4.0 - 10.7 x10E9/L 12/31/2023 7:59 AM [facility] RBC Count 4.94 4.30 - 5.80 x10E12/L 12/31/2023 7:59 AM [facility] Hemoglobin 16.4 13.3 - 17.5 g/dL 12/31/2023 7:59 AM [facility] Hematocrit 47.3 38.7 - 51.1 % 12/31/2023 7:59 AM [facility] MCV 95.7 80.0 - 98.0 fL 12/31/2023 7:59 AM [facility] MCH 33.2 26.7 - 33.6 pg 12/31/2023 7:59 AM [facility] MCHC 34.7 31.7 - 36.3 g/dL 12/31/2023 7:59 AM [facility] RDW-CV 13.1 11.3 - 14.8 % 12/31/2023 7:59 AM [facility] Platelet Count 159 150 - 420 x10E9/L 12/31/2023 7:59 AM [facility] MPV 11.1 7.8 - 11.4 fL 12/31/2023 7:59 AM [facility] Neutrophil % 66.3 41.0 - 74.0 % 12/31/2023 7:59 AM [facility] Lymphocyte % 22.2 17.0 - 47.0 % 12/31/2023 7:59 AM [facility] Monocyte % 7.9 3.0 - 11.0 % 12/31/2023 7:59 AM [facility] Eosinophil % 2.4 0.0 - 7.0 % 12/31/2023 7:59 AM [facility] Basophil % 0.9 0.0 - 1.6 % 12/31/2023 7:59 AM [facility] Immature Granulocytes % 0.3 0.0 - 1.0 % 12/31/2023 7:59 AM [facility] Neutrophil Absolute 7.27 1.60 - 7.50 x10E9/L 12/31/2023 7:59 AM [facility] Lymphocyte Absolute 2.43 1.00 - 4.40 x10E9/L 12/31/2023 7:59 AM [facility] Monocyte Absolute 0.86 0.15 - 1.00 x10E9/L 12/31/2023 7:59 AM [facility] Eosinophil Absolute 0.26 0.00 - 0.60 x10E9/L 12/31/2023 7:59 AM [facility] Basophil Absolute 0.10 0.00 - 0.13 x10E9/L 12/31/2023 7:59 AM [facility] Blood BLOOD SPECIMEN / Unknown Lab Venipuncture / Unknown 12/31/2023 7:13 AM CUSTOM SEAMSTRESS 12/31/2023 7:50 AM [facility] Jairon Wyatt MD LAB - HEMATOLO GY ORDERABLES [facility] [address] [place] [phone], [facility] [phone] * (ABNORMAL) COMPREHENSIVE METABOLIC PANEL (12/31/2023 7:13 AM [facility]) Only the most recent of6 resultswithin the time period is included. BUN 13 7 - 26 mg/dL 12/31/2023 8:20 AM [facility] Creatinine 0.93 0.71 - 1.16 mg/dL 12/31/2023 8:20 AM [facility] Sodium 140 136 - 145 mmol/L 12/31/2023 8:20 AM [facility] Potassium 4.0 3.5 - 4.5 mmol/L 12/31/2023 8:20 AM [facility] Chloride 105 98 - 107 mmol/L 12/31/2023 8:20 AM [facility] CO2 26 22 - 29 mmol/L 12/31/2023 8:20 AM [facility] Glucose 128(H) 70 - 99 mg/dL 12/31/2023 8:20 AM [facility] Calcium 9.6 8.4 - 10.2 mg/dL 12/31/2023 8:20 AM [facility] Protein Total 7.7 6.0 - 8.3 g/dL 12/31/2023 8:20 AM [facility] Albumin 4.0 3.4 - 5.0 g/dL 12/31/2023 8:20 AM [facility] Bilirubin Total 1.0 0.2 - 1.2 mg/dL 12/31/2023 8:20 AM [facility] Alkaline Phosphatase 183(H) 40 - 150 U/L 12/31/2023 8:20 AM [facility] ALT 16 5 - 55 U/L 12/31/2023 8:20 AM [facility] AST 18 5 - 34 U/L 12/31/2023 8:20 AM [facility] Anion Gap 9 6 - 16 12/31/2023 8:20 AM [facility] BUN/Creatinine Ratio 14 7 - 23 12/31/2023 8:20 AM [facility] Osmolality Calculated 292 275 - 295 mOsm/kg 12/31/2023 8:20 AM [facility] Albumin/Globulin Ratio 1.1 1.1 - 2.3 12/31/2023 8:20 AM [facility] eGFR by CKD-EPI >90 >=90 mL/min/1.7 3 m2 12/31/2023 8:20 AM [facility] Blood BLOOD SPECIMEN / Unknown Lab Venipuncture / Unknown 12/31/2023 7:13 AM C[facility] SE[facility]STRESS 12/31/2023 7:50 AM [facility] Jairon Wyatt MD LAB - CHEMISTR Y ORDERABLES Performing Organization Address [facility] Co de Phone Number [address] [address], [facility] [phone] * PHOSPHATIDYLETHANOL (PETH) (07/02/2023 1:24 PM CDT) PEt 16:0/18.1 (POPEth) <10 ng/mL 07/04/2023 5:31 PM CDT [facility] ([facility]) Comment: PEth 16:0/18:1 (POPEth) Less than 10 ng/mL............Not detected Less than 20 ng/mL............Abstinence or light alcohol consumption 20 - 200 ng/mL................Moderate alcohol consumption Greater than 200 ng/mL........Heavy alcohol consumption or chronic alcohol use (Reference: Maria D Miranda and Casimiro Mandujano 2018 J. Forensic Sci) PEth 16:0/18.2 (PLPEth) <10 ng/mL 07/04/2023 5:31 PM [facility] ([facility]) Comment:Reference ranges are not well established. EER Peth See Note 07/04/2023 5:31 PM CDT [facility] ([facility]) Comment: Authorized individuals can access the Personal Enhanced Report using the following link: [email or web address] Interpretation PEth See Comment 07/04/2023 5:31 PM [facility] ([facility]) Comment: Phosphatidylethanol (PEth) is a group of phospholipids formed in the presence of ethanol, phospholipase D and phosphatidylcholine. PEth is known to be a direct alcohol biomarker. The predominant PEth homologues are PEth 16:0/18:1 (POPEth) and PEth 16:0/18:2 (PLPEth), which account for 37-46% and 26-28% of the total PEth homologues, respectively. PEth is incorporated into the phospholipid membrane of red blood cells and has a general half-life of 4-10 days and a window of detection of 2-4 weeks. However, the window of detection is longer in individuals who chronically or excessively consume alcohol. The limit of quantification is 10 ng/mL. Serial monitoring of PEth may be helpful in monitoring alcohol abstinence over time. PEth results should be interpreted in the context of the patient's clinical and behavioral history. Patients with advanced liver disease may have falsely elevated PEth concentrations (Sandie BEACH et al 2018, Alcoholism Clinical & Experimental Research). This test was developed and its performance characteristics determined by [facility]. It has not been cleared or approved by the U.S. Food and Drug Administration. This test was performed in a CLIA-certified laboratory and is intended for clinical purposes. Performed By: [facility] [address] [place] [address] Steel Pourer Helper: Shady Wallace MD, PhD CLIA Number: [id number] Blood BLOOD SPECIMEN / Unknown Lab Venipuncture / Unknown 07/02/2023 1:24 PM CDT 07/02/2023 1:39 PM CDT Jairon Wyatt MD LAB - CHEMISTR Y ORDERABLES [facility]) [address] [place] [address], [facility] * AK LIVER ELASTOGRAPHY (04/09/2023 9:14 AM CUSTOM SEAMSTRESS) Narrative Albert Ding MD - 04/09/2023 9:14 AM CUSTOM SEAMSTRESS Albert Ding MD 04/09/2023 12:52 PM Diagnosis: TABITHA RN verified patient is NPO for prior 3 hours. Procedure explained. Date of Exam: 04/09/2023 Liver Stiffness: (LSM, kPa) median: 74.3 IQR/Median% (ideally < 30%): 10% CAP (controlled attenuation parameter): 217 Technical Difficulty: None Ordering Provider: Jairon Wyatt MD Phone Fax Fibroscan interpretation: I have personally reviewed the Fibroscan report and associated tracings. The calculated Liver Stiffness Measurement (LSM, kPa) indicates that: The probability of advanced liver fibrosis is: very high and the probability of complications of portal hypertension is also high. The loss of ultrasound signal, (controlled attenuation parameter, CAP [dB/m]), indicates that the probability of hepatic steatosis is: low. Albert Mcdaniel MD The following criteria are used to indicate the probability of advanced (stage 3-4) fibrosis: < 7.0 kPa: low 7.0-8.9 kPa: low to moderate 9.0-14.9 kPa: moderate 15-20 kPa: high > 20 kPa: very high Liver stiffness > 20 kPa is also associated with a high probability of complications of portal hypertension including varices and ascites. Liver stiffness > 50 kPa is associated with a high risk of variceal bleeding. These interpretations are based on the following published data: Mik ZAVALA, Stew M, Jesica M, et al. Accuracy of FibroScan controlled attenuation parameter and liver stiffness measurement in assessing steatosis and fibrosis in patients with nonalcoholic fatty liver disease. Gastroenterology 2019;156:8498-5904. Yanira MS, Dianne R, Van Gigi ALSTON, et al. Vibration-controlled transient elastography to assess fibrosis and steatosis in patients with nonalcoholic fatty liver disease. Clin Gastroenterol Hepatol 2019;17:156-163. Note that scores have been developed that incorporate the Fibroscan liver stiffness measurement from large cohorts of patients with liver biopsies to further refine the ability of Fibroscan to identify patients with MASH and advanced fibrosis. These include the FAST (Fibroscan-AST) score (Jose, 202) and the Agile3+ and Agile4 scores (Keanu, 202). Jose TA, Dilan ALSTON, Jr Rangel, Celso A, et al. Validation of the accuracy of the FAST score for detecting patients with at-risk nonalcoholic steatohepatitis (MORRIS) in a [place] cohort and comparison to other non-invasive algorithms. PLoS ONE (2021) 17: [id number]. Keanu AJ, Jelly J, Yissel ZM, et al. Enhanced diagnosis of advanced fibrosis and cirrhosis in individuals with NAFLD using FibroScan-based Agile scores. J Hepatol (2022) 78: 247-259. Fibroscan LSM can also be used with laboratory parameters without formulas to assess prognosis. According to the Baveno-VII criteria (de Yolette, 202), Fibroscan LSM ?15 kPa plus a platelet count of ?173n261/L rules out clinically significant portal hypertension (sensitivity and negative predictive value >90%) in patients with compensated advanced chronic liver disease. Brewer R, Clayton J, Justice G, Alexei T, Alec C on behalf of the Baveno VII Faculty. Baveno VII--Renewing consensus in portal hypertension. J Hepatol (2021) 76: 959-974 Assessing the likelihood of advanced fibrosis in patients with intermediate liver stiffness measurement (LSM) by Fibroscan (e.g., 8-15 kPa) can be improved by also calculating the FIB-4 score (Ilia et al. Hepatology Communications 2019;3:6010-0132) or NAFLD Fibrosis score (Bajwa et al. Clinical Gastroenterology and Hepatology 2019;17:3862-0297 using routine clinical data. Note: 1. Fibroscan cannot reliably identify earlier stages of fibrosis (ie distinguish F0 from F1 and F2) and thus a histologic stage cannot be predicted from the Fibroscan reading. 2. Liver stiffness can be increased by factors other than fibrosis including passive congestion, infiltrative processes, active alcoholism, recent moderate alcohol consumption in the 2 weeks before the exam, biliary obstruction and marked inflammation. The interpretation of the Fibroscan result provided above may not have taken such clinical factors into account. Disease etiology also influences Fibroscan cutoff values for fibrosis stages and the following cutoffs have been proposed (Danyelle et al, Clin Gastro Hepatol 2015; 13:27-36): Cutoffs for Stage 3 and Stage 4 fibrosis respectively: Hepatitis B: >9 and >11.7 kPa Hepatitis C: >9.5 and >12.5 kPa HCV-HIV: >11 and >14 kPa Cholestatic liver diseases: >10 and >17.9 kPa MASLD/MASH: >10 and >14 kPa CAP estimates of steatosis: normal <200 dB/m mild 200 to 250 dB/m moderate 250-290 dB/m substantial > 290 dB/m (Note that Fibroscan is not a quantitative measure of liver fat.) These criteria are estimates and may change as additional supporting data becomes available. (This additional interpretive data was last updated 06/30/22.) [email or web address] [email or web address] Jairon Wyatt MD PROCEDURE/RASHIDA [facility] SURGICAL ORDERABLES * CARDIAC EKG ORDER (03/15/2009 8:50 AM CUSTOM SEAMSTRESS) Only the most recent of2 resultswithin the time period is included. Narrative 03/15/2009 8:50 AM CUSTOM SEAMSTRESS Ordered by an unspecified provider. Transcriptions Document, Scanned - 03/07/2009 12:00 AM CUSTOM SEAMSTRESS Scanned Document CARDIAC SERVICES ORD ERABLES * CARDIAC RHYTHM STRIP ORDER (03/15/2009 8:50 AM CUSTOM SEAMSTRESS) Narrative 03/15/2009 8:50 AM CUSTOM SEAMSTRESS Ordered by an unspecified provider. Transcriptions Document, Scanned - 03/07/2009 12:00 AM CUSTOM SEAMSTRESS Scanned Document CARDIAC SERVICES ORD ERABLES * (ABNORMAL) POTASSIUM BLOOD (03/11/2009 11:56 AM CUSTOM SEAMSTRESS) Potassium 3.9(DE) 3.6 - 5.0 mmol/L [facility] BLOOD SPECIMEN / Unknown 03/11/2009 11:56 AM CUSTOM SEAMSTRESS 03/11/2009 11:56 AM CUSTOM SEAMSTRESS Narrative [facility] - 03/11/2009 12:18 PM CUSTOM SEAMSTRESS After K+ repaced,call if still low Arleth Hart MD LAB - CHEMISTRY ADWOA [place]A Performing Organization Address [facility] Co de Phone Number [facility] [address] [place] [address] * MAGNESIUM BLOOD (03/11/2009 3:10 AM CUSTOM SEAMSTRESS) Only the most recent of3 resultswithin the time period is included. Magnesium 2.0 1.6 - 2.3 mg/dl [facility] BLOOD SPECIMEN / Unknown 03/11/2009 3:10 AM CUSTOM SEAMSTRESS 03/11/2009 3:55 AM CUSTOM SEAMSTRESS Arleth Hart MD LAB - CHEMISTRY ADWOA [place] Performing Organization Address [facility] de Phone Number [facility] [address] [place] [address] * (ABNORMAL) LIPASE BLOOD (03/10/2009 3:00 AM CUSTOM SEAMSTRESS) Only the most recent of4 resultswithin the time period is included. Lipase 2420(H) 23.0 - 300.0 U/L [facility] BLOOD SPECIMEN / Unknown 03/10/2009 3:00 AM CUSTOM SEAMSTRESS 03/10/2009 4:02 AM CUSTOM SEAMSTRESS Hilton Campos MD LAB - CHEMISTRY ADWOA [place] Performing Organization Address [facility] Co de Phone Number [facility] [address] [place] [address] * (ABNORMAL) AMYLASE BLOOD (03/10/2009 3:00 AM CUSTOM SEAMSTRESS) Amylase 514(H) 30.0 - 110.0 U/L [facility] BLOOD SPECIMEN / Unknown 03/10/2009 3:00 AM CUSTOM SEAMSTRESS 03/10/2009 4:02 AM CUSTOM SEAMSTRESS Hilton Campos MD LAB - CHEMISTRY ORDMarcelino COP[place]A Performing Organization Address City/[facility]/ZIP Co de Phone Number [facility] [address] [place] [address] * HEPATITIS B SURFACE ANTIGEN (03/09/2009 1:55 PM CUSTOM SEAMSTRESS) Hepatitis B Virus Surface Antigen Nonreactive Nonreactive [facility] BLOOD SPECIMEN / Unknown 03/09/2009 1:55 PM CUSTOM SEAMSTRESS 03/09/2009 2:21 PM CUSTOM SEAMSTRESS Narrative Resulting Agency Comment Performed By [facility] - [facility] [address] [place] [address] Arleth Hart MD LAB - CHEMISTRY ADWOA [place]A Performing Organization Address [facility] de Phone Number [facility] [address] [place] [address] * (ABNORMAL) COAGULATION PANEL W D-DIMER (03/09/2009 4:20 AM CUSTOM SEAMSTRESS) PT 10.7 9.4 - 11.2 seconds [facility] PTT 28.5 24.0 - 32.0 seconds [facility] Fibrinogen 375 200 - 400 mg/dl [facility] Platelet Count 93(L) 130.0 - 400.0 1000/mm3 [facility] D-Dimer 3.80(H) 0.43 - 2.96 mg/L [facility] Comment D-Dimer [facility] Comment: Elevated results above the reference range may indicate DIC in the appropiate clinical setting. Serial evaluations may yield information reguarding the clinical course. If the result is greater than 1.0mg/L, DVT or PE is possible. D-Dimer is not recommended to rule out DVT/PE for patients who are on anticoagulant therapy since anticoagulant therapy may decrease circulating D-Dimer and could generate a false value below the negative predictive value. There are many causes of elevated D-Dimer not related to venous thromboembolism or DIC. A partial list of these includes , Trauma, Cancer, Post-Surgery, Diabetes, Hematoma, Thrombolytic therapy, Arterial thrombosis, Older age, Generalized hospitalized patient. INR 1.0 SEE BELOW [facility] Comment: 0.9-1.1 Normal 2.0-3.0 Conventional 2.5-3.5 Intensive BLOOD SPECIMEN / Unknown 03/09/2009 4:20 AM CUSTOM SEAMSTRESS 03/09/2009 4:28 AM CUSTOM SEAMSTRESS Hilton Campos MD LAB - COAGULATION OR DERABLES Performing Organization Address [facility] Co de Phone Number [facility] [address] [place] [address] * (ABNORMAL) BASIC METABOLIC PANEL (CALCIUM TOTAL) (03/09/2009 4:20 AM CUSTOM SEAMSTRESS) Only the most recent of2 resultswithin the time period is included. BUN 8(L) 9.0 - 20.0 mg/dl [facility] Sodium 133(L) 137 - 145 mmol/L [facility] Potassium 2.9(L) 3.6 - 5.0 mmol/L [facility] Chloride 99 98.0 - 107.0 mmol/L [facility] CO2 27 22.0 - 30.0 mEq/L [facility] Anion Gap 7.5 [facility] Glucose 83 75 - 110 mg/dl [facility] Creatinine 0.7(L) 0.8 - 1.5 mg/dl [facility] Calcium 8.3(L) 8.4 - 10.2 mg/dl [facility] eGFR by MDRD 134.9 ml/min/1.7 3m2 [facility] BLOOD SPECIMEN / Unknown 03/09/2009 4:20 AM CUSTOM SEAMSTRESS 03/09/2009 4:28 AM CUSTOM SEAMSTRESS Arleth Hart MD LAB - CHEMISTRY ORDMarcelino [place]A Performing Organization Address [facility] Co de Phone Number [facility] [address] [place] [address] * (ABNORMAL) HEPATIC FUNCTION PANEL (03/09/2009 4:20 AM CUSTOM SEAMSTRESS) AST 248(H) 17.0 - 59.0 U/L [facility] ALT 242(H) 21.0 - 72.0 U/L [facility] Alkaline Phosphatase 134(H) 38.0 - 126.0 U/L [facility] Bilirubin Total 1.0 0.2 - 1.3 mg/dl [facility] Albumin 3.3(L) 3.5 - 5.0 gm/dl [facility] Bilirubin Indirect 0.6 0.0 - 1.1 mg/dl [facility] Bilirubin Direct 0.0 0.0 - 0.3 mg/dl [facility] Protein Total 6.3(DE) 6.3 - 8.2 gm/dl [facility] BLOOD SPECIMEN / Unknown 03/09/2009 4:20 AM CUSTOM SEAMSTRESS 03/09/2009 4:28 AM CUSTOM SEAMSTRESS Arleth Hart MD LAB - CHEMISTRY ADWOA [place] Performing Organization Address City/[facility] Co de Phone Number [facility] [id number] [place] [address] * HEPATITIS SCREEN ACUTE (03/09/2009 4:20 AM CUSTOM SEAMSTRESS) Hepatitis A Virus Antibody IgM Nonreactive Nonreactive [facility] Hepatitis B Core Virus Antibody IgM Nonreactive Nonreactive [facility] Hepatitis B Virus Surface Antigen Nonreactive Nonreactive [facility] Hepatitis C Antibody Screen Nonreactive Nonreactive [facility] BLOOD SPECIMEN / Unknown 03/09/2009 4:20 AM CUSTOM SEAMSTRESS 03/09/2009 4:28 AM CUSTOM SEAMSTRESS Narrative Resulting Agency Comment Performed By [facility] - [place] [address] Hilton Campos MD LAB - CHEMISTRY ADWOA COP[place]A Performing Organization Address City/[facility] Co de Phone Number [facility] [id number] [place] [address] * CYTOLOGY NON-TEXTILES AND CLOTHING TEACHER PANEL (03/09/2009 12:00 AM CUSTOM SEAMSTRESS) [facility] Surgeon DR. CAMPOS [facility] Physician(s) DR. DUMONT [facility] Report Text [facility] Comment: INDICATION FOR PROCEDURE OPERATION EGD SPECIMEN ESOPHAGUS BRUSHING GROSS RECEIVED 2 SLIDES MICROSCOPIC TWO SMEARS OF ESOPHAGEAL BRUSHINGS WERE EXAMINED. SQUAMOUS CELLS AND INFLAMMATORY CELLS ARE SEEN. NO MALIGNANT CELLS ARE IDENTIFIED. JW/DC Diagnosis [facility] Comment: DIAGNOSIS 1. ESOPHAGUS, BRUSHING -- NEGATIVE FOR MALIGNANCY JW/DC Released by ROCIO DUMONT M.D . [facility] CPT Code 30414 [facility] ESOPHAGEAL BRUSHINGS SPECIMEN / Unknown 03/09/2009 03/09/2009 10:46 AM CUSTOM SEAMSTRESS Arleth Hart MD LAB - PATHOLOGY/CYTO LOGY ORDERABLES Performing Organization Address [facility] Co de Phone Number [facility] [address] [place] [address] * GROSS + MICRO EXAM (03/09/2009 12:00 AM CUSTOM SEAMSTRESS) [facility] Surgeon DR. Barrera CAMPOS [facility] Grossed By ARINA DWYER [facility] Gross Report [facility] Comment: COPY TO INDICATION FOR PROCEDURE OPERATION EGD GROSS THE SPECIMEN IS RECEIVED IN ONE CONTAINER LABELED WITH THE PATIENT'S NAME AND ESOPHAGUS. THE SPECIMEN CONSISTS OF MULTIPLE MINUTE TO 2 MM FLECKS AND FRAGMENTS OF PALE DE LEON-RED TISSUE^ STAINED AND ALL SUBMITTED IN A SINGLE CASSETTE. LW/KM Microscopic Examination [facility] Comment: MICROSCOPIC MICROSCOPIC EXAMINATION REVEALS LARGE FRAGMENTS OF FIBRINOPURULENT EXUDATE AND A FRAGMENT OF TISSUE WITH UNDERLYING SMOOTH MUSCLE. THIS FRAGMENT SHOWS ONLY A MINUTE AREA OF INTACT SQUAMOUS MUCOSA AND THE REST OF THE SURFACE IS ULCERATED. OVERLYING FIBRINOPURULENT EXUDATE IS IDENTIFIED. THE WALL CONTAINS INFLAMMATORY CELLS AND REACTIVE VASCULAR STRUCTURES. VIRAL INCLUSIONS ARE NOT PRESENT. THERE IS NO EVIDENCE OF MALIGNANCY. GM/KM Diagnosis [facility] Comment: DIAGNOSIS 1. ESOPHAGUS, BIOPSY -- ACUTE INFLAMMATION WITH EXTENSIVE ULCERATION (SEE MICROSCOPIC DESCRIPTION) -- BIOPSY SAMPLE CONTAINS UNDERLYING SMOOTH MUSCLE -- NEGATIVE FOR MALIGNANCY GM/KM Released by Cari DENNEY. [facility] CPT Code 85406 [facility] ESOPHAGEAL BIOPSY SPECIMEN / Unknown 03/09/2009 03/09/2009 10:42 AM CUSTOM SEAMSTRESS Arleth Hart MD LAB - PATHOLOGY/CYTO LOGY ORDERABLES Performing Organization Address [facility] Co de Phone Number [facility] [address] [place] [address] * OCCULT BLOOD FECES (03/08/2009 2:00 PM CUSTOM SEAMSTRESS) Occult Blood Positive Negative [facility] STOOL SPECIMEN / Unknown 03/08/2009 2:00 PM CUSTOM SEAMSTRESS 03/08/2009 2:07 PM CUSTOM SEAMSTRESS Arleth Hart MD LAB - BODY FLUID ORD ERABLES Performing Organization Address [facility] Co de Phone Number [facility] [address] [place] [address] * WBC SMEAR (03/08/2009 2:00 PM CUSTOM SEAMSTRESS) WBC Feces Few PMN /LPF [facility] STOOL SPECIMEN / Unknown 03/08/2009 2:00 PM CUSTOM SEAMSTRESS 03/08/2009 2:07 PM CUSTOM SEAMSTRESS Arleth Hart MD LAB - MICROBIOLOGY O RDERABLES Performing Organization Address [facility] Co de Phone Number [facility] [id number] [place] [address] * O+P ANTIGEN PANEL (03/08/2009 2:00 PM CUSTOM SEAMSTRESS) Giardia Antigen Feces NEGATIVE [facility] Cryptosporidium Antigen Feces NEGATIVE [facility] Entamoeba histolytica Antigen NEGATIVE [facility] Comment Parasite Antigen 03/09 1101 [facility] Additional Comment [id number] [id number] [facility] STOOL SPECIMEN / Unknown 03/08/2009 2:00 PM CUSTOM SEAMSTRESS 03/08/2009 2:07 PM CUSTOM SEAMSTRESS Narrative Resulting Agency Comment Performed By [facility] - [facility] [address] [place] [address] Arleth Hart MD LAB - MICROBIOLOGY O RDERABLES Performing Organization Address City/[facility] Co de Phone Number [facility] [address] [place] [address] * CULTURE STOOL PANEL (03/08/2009 2:00 PM CUSTOM SEAMSTRESS) Result [facility] Comment: Final CULTURE Shiga Toxin neg No Salmonella, Shigella, Campylobacter or E coli 0157-H7 isolated. STOOL SPECIMEN / Unknown 03/08/2009 2:00 PM CUSTOM SEAMSTRESS 03/08/2009 2:07 PM CUSTOM SEAMSTRESS Narrative Resulting Agency Comment Performed By [address] [address] Arleth Hart MD LAB - MICROBIOLOGY O RDERABLES Performing Organization Address [facility] Co de Phone Number [facility] [id number] [place] [address] * TRIGLYCERIDES BLOOD (03/08/2009 10:35 AM CUSTOM SEAMSTRESS) Triglycerides 132 0.0 - 250.0 mg/dl [facility] BLOOD SPECIMEN / Unknown 03/08/2009 10:35 AM CUSTOM SEAMSTRESS 03/08/2009 11:14 AM CUSTOM SEAMSTRESS Arleth Hart MD LAB - CHEMISTRY ADWOA [place] Performing Organization Address [facility] de Phone Number [facility] [address] [place] [address] * ALCOHOL ETHYL BLOOD (03/07/2009 9:30 PM CUSTOM SEAMSTRESS) Ethanol <10 0.0 - 10.0 mg/dl [facility] BLOOD SPECIMEN / Unknown 03/07/2009 9:30 PM CUSTOM SEAMSTRESS 03/07/2009 9:41 PM CUSTOM SEAMSTRESS Cliff Perry MD LAB - CHEMISTRY ORDMarcelino COP[place]A Performing Organization Address [facility] de Phone Number [facility] [address] [place] [address] * CT HEAD - NON CONTRAST (03/07/2009 4:18 PM CUSTOM SEAMSTRESS) Anatomical Region Laterality Modality Head Computed Tomogra phy 03/07/2009 5:51 PM CUSTOM SEAMSTRESS Narrative 03/07/2009 5:52 PM CUSTOM SEAMSTRESS Examination: Noncontrast CT brain. Indication for examination: Seizure, altered mental status. Head injury. An emergency noncontrast CT examination of the brain is performed with 5 mm helical technique. There is cerebral atrophy out of proportion to the patient's age. Ventricles are not grossly dilated. No acute intracranial hemorrhage is identified. There is no mass lesion or fluid collection. No discrete acute infarct is observed. There is mucosal thickening or fluid in the left maxillary sinus. Conclusion: Atrophy. No acute intracranial abnormality identified. Procedure Note Mason Gary MD - 03/07/2009 Examination: Noncontrast CT brain. Indication for examination: Seizure, altered mental status. Head injury. An emergency noncontrast CT examination of the brain is performed with 5 mm helical technique. There is cerebral atrophy out of proportion to the patient's age. Ventricles are not grossly dilated. No acute intracranial hemorrhage is identified. There is no mass lesion or fluid collection. No discrete acute infarct is observed. There is mucosal thickening or fluid in the left maxillary sinus. Conclusion: Atrophy. No acute intracranial abnormality identified. Cliff Perry MD CT ORDERABLES * (ABNORMAL) DRUG SCREEN URINE ABUSE INHOUSE (03/07/2009 2:38 PM CUSTOM SEAMSTRESS) Only the most recent of2 resultswithin the time period is included. Amphetamines Screen Urine Negative Negative [facility] Barbiturates Screen Urine Negative Negative [facility] Benzodiazepines Screen Urine Positive(A) Negative [facility] Cocaine Screen Urine Negative Negative [facility] Cannabinoids Screen Urine Negative Negative [facility] Opiate Screen Urine Negative Negative [facility] Phencyclidine Screen Urine Negative Negative [facility] Methadone Screen Urine Negative Negative [facility] Legal Disclaimer Urine [facility] Comment: This drug screen is designed for MEDICAL purposes only. It is not to be used for legal purposes including but not limited to workman's comp, police investigations, occupational issues, child custody, etc. Any positive result is only presumptive and must be confirmed with a separate confirmatory test. URINE / Unknown 03/07/2009 2 :38 PM CUSTOM SEAMSTRESS 03/07/2009 2:39 PM CUSTOM SEAMSTRESS Eugene Cali MD LAB - URINE CHEMI STRY ORDERABLES [facility] [address] [place] [address] * URINALYSIS ROUTINE AUTO (03/07/2009 2:38 PM CUSTOM SEAMSTRESS) Color UA DK YELLOW [facility] Character UA CLOUDY [facility] Specific Taylor UA 1.020 1.005 - 1.0300 [facility] pH UA 6.0 4.6 - 8.0 pH Units [facility] Leukocyte UA NEGATIVE Negative /ul [facility] Nitrite UA NEGATIVE Negative [facility] Protein UA 300 Negative mg/dl [facility] Glucose UA 100 Normal mg/dl [facility] Ketone UA 15 Negative mg/dl [facility] Urobilinogen UA 1.0 Normal Grace Units [facility] Bilirubin UA SMALL Negative mg/dl [facility] Blood UA SMALL Negative /ul [facility] WBC UA 5-10 /HPF [facility] RBC UA 10-20 /HPF [facility] Epithelial Cell UA <5 /HPF [facility] Mucus UA 2+ [facility] Casts UA 20-50 hyaline, 2-5 coarse granular /LPF [facility] Bacteria UA NEGATIVE [facility] URINE SPECIMEN OBTAINED BY CLEAN CATCH PROCEDURE / Unknown 03/07/2009 2:38 PM CUSTOM SEAMSTRESS 03/07/2009 2:38 PM CUSTOM SEAMSTRESS Narrative [facility] - 03/07/2009 3:21 PM CUSTOM SEAMSTRESS If patient is from longterm OR * Eugene Cali MD LAB - URINALYSIS ORDERABLES Performing Organization Address City/[facility] Co de Phone Number [facility] [address] [place] [address] * TROPONIN I (03/07/2009 1:34 PM CUSTOM SEAMSTRESS) [facility] Troponin I <0.10 SEE BELOW ng/ml [facility] Comment: Normal <0.10 [place] 0.10-0.99 Positive >=1.00 SERUM OR PLASMA SPECIMEN / Unknown 03/07/2009 1:34 PM CUSTOM SEAMSTRESS 03/07/2009 2:51 PM CUSTOM SEAMSTRESS Cliff Perry MD LAB - CHEMISTRY ADWOA COPPOLA Performing Organization Address City/[facility] Co de Phone Number [facility] [address] [place] [address] * (ABNORMAL) DRUG SCREEN TOX LIMITED BLOOD PANEL (03/07/2009 1:34 PM CUSTOM SEAMSTRESS) Only the most recent of2 resultswithin the time period is included. Pathologist [facility] Acetaminophen <10.0(L) 10.0 - 20.0 ug/ml [facility] Ethanol 262(HH) 0.0 - 10.0 mg/dl [facility] Salicylate <1.0(L) 2.0 - 29.0 mg/dl [facility] BLOOD SPECIMEN / Unknown 03/07/2009 1:34 PM CUSTOM SEAMSTRESS 03/07/2009 1:52 PM CUSTOM SEAMSTRESS Narrative [facility] - 03/07/2009 2:18 PM CUSTOM SEAMSTRESS Perform for patients greater than 6* Eugene Cali MD LAB - TOXICOLOGY ORDERABLES Performing Organization Address [facility] Co de Phone Number [facility] [address] [place] [address] * MYOGLOBIN BLOOD (03/07/2009 1:34 PM CUSTOM SEAMSTRESS) Myoglobin 97.0 0.0 - 110.0 ng/ml [facility] SERUM OR PLASMA SPECIMEN / Unknown 03/07/2009 1:34 PM CUSTOM SEAMSTRESS 03/07/2009 2:51 PM CUSTOM SEAMSTRESS Cliff Perry MD LAB - CHEMISTRY ORDE RABLES Performing Organization Address [facility] Co de Phone Number [facility] [address] [place] [address] * XR CHEST 1VW PORTABLE (03/07/2009 3:10 AM CUSTOM SEAMSTRESS) Anatomical Region Laterality Modality Chest Radiographic Oralia ging 03/07/2009 3:49 PM CUSTOM SEAMSTRESS Impressions 03/07/2009 3:49 PM CUSTOM SEAMSTRESS No acute cardiopulmonary disease Narrative 03/07/2009 3:49 PM CUSTOM SEAMSTRESS Portable AP chest Indication: Cough Comparison: None available Findings: The lungs are clear. Heart size normal. No evidence of pneumothorax or pleural effusion. Procedure Note Ishmael Bacon MD - 03/07/2009 Portable AP chest Indication: Cough Comparison: None available Findings: The lungs are clear. Heart size normal. No evidence of pneumothorax or pleural effusion. IMPRESSION No acute cardiopulmonary disease Cliff Perry MD DIAGNOSTIC IMAGING O RDERABLES * XR HUMERUS 2+ VW RIGHT (03/07/2009 3:10 AM CUSTOM SEAMSTRESS) Anatomical Region Laterality Modality Upper Extremity Radiographic Oralia ging 03/07/2009 4:05 PM CUSTOM SEAMSTRESS Narrative 03/07/2009 4:05 PM CUSTOM SEAMSTRESS Two views right humerus Indication: Right arm pain Comparison: None available Findings: No evidence of fracture, dislocation, or significant degenerative change. Procedure Note Ishmael Bacon MD - 03/07/2009 Two views right humerus Indication: Right arm pain Comparison: None available Findings: No evidence of fracture, dislocation, or significant degenerative change. Cliff Perry MD DIAGNOSTIC IMAGING O RDERABLES * RPR (11/18/2008 5:50 AM CDT) RPR Nonreactive Nonreactive [facility] BLOOD SPECIMEN / Unknown 11/18/2008 5:50 AM CDT 11/18/2008 7:05 AM CDT Delfino Vincent MD LAB - CHEMISTRY ADWOA COPPOLA Performing Organization Address [facility] Co de Phone Number [facility] [address] [place] [address] * TSH (11/18/2008 5:50 AM CDT) TSH 1.161 0.35 - 5.50 uIU/ml [facility] BLOOD SPECIMEN / Unknown 11/18/2008 5:50 AM CDT 11/18/2008 7:05 AM CDT Narrative Resulting Agency Comment Performed By [facility] Lab - [facility] [address] [place] [address] Delfino Vincent MD LAB - CHEMISTRY ADWOA COPPOLA Performing Organization Address City/[facility]/ZIP Co de Phone Number [facility] [address] [place] [address] Care Teams Handbag Designer Relationship Specialty Start Date End Date John Paul Johnston MD [address] [place] [phone] PCP - General Family Medicine 04/09/23
[2024-04-09 19:22] LABS: Basophils Absolute Auto 0.1 K/mm3 (0.0-0.1); Basophils Percent Auto 0.8 % (0.2-1.2); Eosinophils Absolute Auto 0.3 K/mm3 (0-0.3); Eosinophils Percent Auto 2.4 % (0-4.4); Hematocrit 51.3 % (42.0-52.0); Hemoglobin 16.9 g/dL (14.0-18.0); Immature Granulocyte Absolute 0.06 K/mm3 (0.00-0.031); Immature Granulocyte Percent A 0.4 % (0-0.5); Lymphocytes Absolute Auto 2.94 K/mm3 (0.9-3.2); Mean Corpuscular HGB Conc 32.9 g/dl (32-36); Mean Corpuscular Hemoglobin 34.1 pg (26-34); Mean Corpuscular Volume 103.4 fl (80-100); Mean Platelet Volume 11.4 fl (7.4-10.4); Monocytes Absolute Auto 0.9 K/mm3 (0.1-0.6); Monocytes Percent Auto 6.1 % (2.6-8.5); Neutrophils Absolute Auto 9.7 K/mm3 (1.3-6.7); Neutrophils Percent Auto 69.3 % (45.5-73.1); Platelet Count Result 158 k/mm3 (150-375); Red Blood Count 4.96 M/mm3 (4.6-6.20); Red Cell Distribution Width 13.3 % (11.5-14.5)
[2024-04-09 19:33] LABS: Cholesterol 140 mg/dL (0-200); HDL Direct 41 mg/dL; Triglycerides 105 mg/dL (<150)
[2024-04-09 19:45] LABS: LDL Cholesterol Direct 75 mg/dL
[2024-04-09 20:04] LABS: Prostate Specific Antigen 1.9 ng/mL (< OR = 4.0)
[2024-04-09 22:00] LABS: Hemoglobin A1C 5.6 % (<5.7)
== END 2024-04-09 09:20 | disposition home or self-care (01) ==
LOC: ANHBWCLAB 09:22
PROVIDERS: PCP Nurse Practitioner Family; Visit Provider Nurse Practitioner Family
DX: K74.60 Unspecified cirrhosis of liver (principal); R18.8 Other ascites; D72.9 Disorder of white blood cells, unspecified; R73.09 Other abnormal glucose; Z68.31 Body mass index [BMI] 31.0-31.9, adult; Z80.42 Family history of malignant neoplasm of prostate; Z13.1 Encounter for screening for diabetes mellitus; Z13.220 Encounter for screening for lipoid disorders; Z12.5 Encounter for screening for malignant neoplasm of prostate
CPT/HCPCS: 36415; 80061; 83036; 84153; 85025; G0103

== ENCOUNTER 2024-04-20 09:48 | Outpatient (CLI) | payer BC, SELFPAY ==
--- NOTE | ~2024-04-20 | XR_ITS ---
EXAMINATION: XR lumbar spine 2-3V DATE: 04/20/2024 10:09 INDICATION: Low back pain, unspecified. TECHNIQUE: 3 views of lumbar spine were obtained. COMPARISON: Lumbar spine radiographs 06/21/2023 FINDINGS: There is 9 degrees levocurvature of lumbar spine. There is a chronic compression fracture o f T12 with 1/5 loss of height. Intervertebral disc heights are normal. There is multilevel mild-to-mo derate facet joint osteoarthritis. IMPRESSION: 1. Lumbar facet joint osteoarthritis. Reviewed, dictated and finalized at location A. OR PROGRAMMER
--- NOTE | ~2024-04-20 | XR_ITS ---
HISTORY: M54.9 - Dorsalgia, unspecified COMPARISON: None TECHNIQUE: 3 views of the thoracic spine were performed FINDINGS: No acute compression fracture is present. Bone mineralization is age-appropriate. No significant degenerative disease. IMPRESSION: Unremarkable radiographic evaluation of the thoracic spine, as detailed above. Reviewed, dictated and finalized at location A. ICER FINISHER
--- NOTE | ~2024-04-20 | XR_ITS ---
EXAM: XR_CERV2-3V_CR DATE: 04/20/2024 10:10 HISTORY: M54.2 - Cervicalgia . COMPARISON: None available. FINDINGS: Craniocervical association and atlantoaxial joint are aligned. Mild degenerative change at the atlantodental interval. No prevertebral soft tissue swelling. 2 mm anterolisthesis at C5-6. Vert ebral body heights are maintained. Mild disc space narrowing at C4-5 and C5-6. Mild multilevel facet and uncovertebral joint hypertrophy. IMPRESSION: Grade 1 anterolisthesis at C5-6. Mild degenerative disc disease at C4-5 and C5-6. Multile evette mild facet arthropathy. Reviewed, dictated and finalized at location K. NG OVEN TENDER IMPRESSION: Grade 1 anterolisthesis at C5-6. Mild degenerative disc disease at C4-5 and C5-6. Multilevel mild facet arthropathy.
--- OUTSIDE RECORDS SUMMARY | 2024-04-20 10:45 | XMS_ITS | Clinical Summary ---
Author Organization [facility] [address] [facility] lt Address [address] [place] [address] Care Team Providers Care Clerk Operator Name Role Phone Hilton Baron DO Primary Care Provider [phone] [phone] Allergies No known active allergies Medications cholecalcifero l (Dialyvite Vitamin D3 Max) 71703 unit tablet 9 Active omega-3 fatty acids-fish [...] on file Legal Sex Male 9:16 AM CUB REPORTER Gender Identity Not on file Sexual Orientation Not on file Obstetrics History Last Filed Vital Signs Vital Sign Reading Time Taken Comments Blood Pressure 99/61 01/21/2023 12:10 PM CUB REPORTER Pulse 76 01/21/2023 12:10 PM CUB REPORTER Temperature 36.7 C (98.1 F) 01/21/2023 7:31 AM CUB REPORTER Respiratory Rate 16 01/21/2023 12:1 0 PM CUB REPORTER Oxygen Saturation 96% 01/21/2023 12: 10 PM CUB REPORTER Inhaled Oxygen Concentration - - Weight 88.3 kg (194 lb 11.2 oz) 01/19/2023 7:45 PM CUB REPORTER Height 170.2 cm (5' 7 ) 01/19/2023 7:45 PM CUB REPORTER Body Mass Index 30.49 01/19/2023 7:45 PM CUB REPORTER Plan of Treatment Health Maintenance Due Date Last Done Comments Depression Screening 1970 Hepatitis C Screening 1970 Prostate Cancer Screening-PSA 1970 DTaP/Tdap/Td Vaccine (1 - Tdap) 12/11/1982 Hepatitis B Screening 12/11/1989 Regular Well Visit/Exam 18-64 12/11/1989 Zoster Vaccine (1 of 2) 12/11/2021 Covid-19 Vaccine (3 - 2023-2 5 season) 2023 09/17/2020, 08/20/2020 Influenza Vaccine (#1) 2023 Colon Cancer Screening-Colonoscopy 01/21/2033 01/21/2023 Pneumococcal vaccine <65 Aged Out No longer eligible based on patient's age to complete this topic Procedures Procedure Name Priority Date/Time Associated Diagnosis Comments COLONOSCOPY 01/21/2023 11:06 AM CUB REPORTER from Last 3 Months or Most Recently Relevant to Health Maintenance Results * COLONOSCOPY (01/21/2023 11:06 AM CUB REPORTER) Anatomical Region Laterality Modality Other Narrative Procedure Note Keisha Blankenship MD - 01/21/2023 11:06 AM CST [facility] Endoscopy Lab Patient Name: Osmany Anthony Procedure Date: 01/21/2023 11:06AM Date of : 1970 Admit Type: Inpatient Age: 52 Gender: Male Note Status: Finalized Attending MD: Keisha Blankenship M.D. Procedure Date: 01/21/2023 Procedure: Colonoscopy Indications: Hematochezia Providers: Keisha Blankenship M.D., SARTHAK Calderon (Anesthesia Staff), Suma Dykes RN, Subhash, Neurosurgery Research Director Referring MD: Andriy Morales M.D. Medicines: Monitored [...] by the physician, the nurse and the maltster in the procedure room. Mental Status Examination: [...] daily. - [facility] Procedure Code(s): --- Professional --- 34861, Colonoscopy, flexible; with biopsy, singleor multiple Diagnosis Code(s): --- Professional --- D12.7, Benign neoplasm of rectosigmoid junction K64.2, Third degree hemorrhoids K92.1, Melena (includes Hematochezia) K57.30, Diverticulosis of large intestine without perforation or abscess without bleeding CPT copyright 2020 [employer]. All rights reserved. The codes documented in this report are preliminary and upon scrap iron cutter reviewmay be revised to meet current compliance requirements. Electronically signed by Keisha Blankenship M.D. Keisha Blankenship M.D. 01/21/2023 11:40:29 AM Number of Addenda: 0 Note Initiated On: 01/21/2023 11:06 AM Keisha Blankenship MD ENDOSCOPY PROCEDURES Fi nal Result from Last 3 Months or Most Recently Relevant to Health Maintenance Insurance [employer] ACCESS Member Subscriber Plan / Payer (Ef fective 2020-Present) Name:Raj Osmany Benson Relation to Subscriber:Self Name:Osmany Anthony Marcelino Payer ID:[id number] (NAIC) Type:[facility] Address: [address] [place] [address] Advance Directives For more information, please contact: [phone] * Full Code (Latest Code Status on File) Date Activated Date Inactivated Comments 01/19/2023 8:25 PM 01/21/2023 5:03 PM Care Teams Clerk Operator Relationship Specialty Start Date End Date Hilton Baron DO PCP - General Family Medicine 03/07/21
--- OUTSIDE RECORDS SUMMARY | 2024-04-20 10:45 | XMS_ITS | Clinical Summary ---
Author Organization [facility] Address [address] [place] [address] Phone Care Team Providers Care Senior Environmental Technician Name Role Phone Hilton Baron Primary Care Provider [phone] Allergies No known active allergies Medications Multiple Vitamin (ONE-A-DAY MENS PO) Take by mouth daily. Active Harned-3 Fatty Acids (FISH OIL PO) Take by mouth daily. Active B Complex Vitamins (VITAMIN B COMPLEX PO) Take by mouth daily. Active Cholecalciferol (VITAMIN D PO) Take by mouth once a week. Active Omeprazole-Sodium Bicarbonate (ZEGERID OTC PO) Take by mouth as needed. Active Aspirin 81 MG Tablet Take 81 mg by mouth daily. Active DIALYVITE VITAMIN D3 MAX 92019 units Tablet 1 08/12/2018 Active Active Problems [...] to complete this topic Insurance Care Teams Senior Environmental Technician Relationship Specialty Start Date End Date Hilton Baron DO [address] [place] [address] PCP - General Family Medicine 03/04/18
--- OUTSIDE RECORDS SUMMARY | 2024-04-20 10:46 | XMS_ITS | Clinical Summary ---
Author Organization [facility] Address [address] [place] [address] Care Team Providers Care System Planning Engineer Name Role Phone John Paul Johnston MD Primary Care Provider [phone] [phone] Source Comments [facility],non-owned Affiliates and Associated Physician Practices is amultiple site organization consisting of ambulatory clinics and hospital sitesin [place], [place], [place] and [place]. This disclosure is being madepursuant to the Care Everywhere program and may not contain all information available regarding this patient. Last updated 17.[facility] Allergies No known active allergies Medications * Be aware that medications may not be up to date on this document. Alwaysverify current medications with the patient. Medication Sig Dispensed Refills Start Date End Date Status aspirin EC (Ecotrin) 81 MG tablet Take 1 (one) tablet by mouth once daily Active vitamin D3 (Cholecalciferol ) 25 MCG (1000 UNITS) tablet Take 1 (one) tablet by mouth once daily Active cyanocobalamin (Vitamin B-12) 1000 MCG tablet Take 1 (one) tablet by mouth once daily Active psyllium (Metamucil) 58.6 % powder Take 1 (one) packet by mouth once daily Active baclofen (Lioresal) 10 MG tablet TAKE 1 TABLET BY MOUTH THREE TIMES A DAY NEEDED FOR PAIN 06/21/2023 Active omeprazole (PriLOSEC) 20 MG capsuleIndicatio ns:Olmstead's Esophagus,Erosiv e Esophagitis,Chris pieter Ulcer,Gastroesop hageal Reflux Disease Take 1 (one) capsule by mouth once daily Reasons: Olmstead's Esophagus, Esophagus Inflammation with Erosion, Gastroesophageal Reflux Disease, Stomach Ulcer 90 capsule 3 02/06/2024 5 Active carvedilol (Coreg) 6.25 MG tabletIndication s:Bleeding Varicose Veins Take 1 (one) tablet by mouth 2 times daily with morning and evening meal Reasons: Bleeding Varicose Veins 180 tablet 3 02/06/2024 5 Active furosemide (Lasix) 40 MG tablet TAKE 1 TABLET BY MOUTH EVERY DAY 90 tablet 3 03/12/2024 Active Active Problems Problem Noted Date Diagnosed Date Alcoholic cirrhosis 04/09/2023 Overview (04/09/2023): 04/09/23 Fibroscan CA 217, LSM 74.3 kPa ETOH abuse 03/07/2009 Cough 03/07/2009 Fall 03/07/2009 Head injury 03/07/2009 Overview (11/25/2014): 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 fidel payan 11/17/2008 Encounters Date Type Department Care Team Description 03/12/2024 Refill [facility] [place] [address] [place] [phone] Jairon Wyatt MD Refill Request 02/10/2024 Orders Only [facility] [address] [place] [phone] Jairon Wyatt MD Secondary esophageal varices without bleeding (HCC) 02/06/2024 10:00 AM MILITARY COMMUNICATIONS SPECIALIST - 02/06/2024 10:30 AM MILITARY COMMUNICATIONS SPECIALIST Surgery [facility] [address] [place] [address] Jairon Wyatt MD EGD elgin chávez 02/06/2024 9:41 AM MILITARY COMMUNICATIONS SPECIALIST Anesthesia Event [facility] [address] [place] [address] Hilton Kwok MD Byrum, Michael, Anes Assaminah 02/06/2024 8:29 AM MILITARY COMMUNICATIONS SPECIALIST - 02/06/2024 10:29 AM MILITARY COMMUNICATIONS SPECIALIST Hospital Encounter [facility] [address] [place] [address] Jairon Wyatt MD Gastroenterology Discharge Disposition: Home or Self Care 02/06/2024 Travel 01/31/2024 Patient Outreach [facility] [address] [place] [address] Crystal Freeman RN from Last 3 Months [...] Comments Blood Pressure 100/62 02/06/2024 10:20 AM MILITARY COMMUNICATIONS SPECIALIST Pulse 63 02/06/2024 10:21 AM MILITARY COMMUNICATIONS SPECIALIST Temperature 36.6 C (97.9 F) 02/06/2024 10:20 AM MILITARY COMMUNICATIONS SPECIALIST Respiratory Rate 16 02/06/2024 10:2 1 AM MILITARY COMMUNICATIONS SPECIALIST Oxygen Saturation 95% 02/06/2024 10: 21 AM MILITARY COMMUNICATIONS SPECIALIST Inhaled Oxygen Concentration - - Weight 96.1 kg (211 lb 14.4 oz) 02/06/2024 8:49 AM MILITARY COMMUNICATIONS SPECIALIST Height 180.3 cm (5' 11 ) 02/06/2024 8:49 AM MILITARY COMMUNICATIONS SPECIALIST Body Mass Index 29.55 02/06/2024 8:49 AM MILITARY COMMUNICATIONS SPECIALIST Plan of Treatment Upcoming Encounters Date Type Department Care Team (Latest Contact Info) Description 05/21/2024 7:55 AM CDT Hospital Encounter [facility] [address] [place] [address] Jairon Wyatt MD [address] [place] [address] Surgery General 05/21/2024 7:55 AM CDT - 05/21/2024 8:25 AM CDT Surgery [facility] [address] [place] [address] Jairon Wyatt MD [address] [place] [address] [address] [place] [address] EGD w/ saira 07/06/2024 7:15 AM CDT Appointment [facility] [address] [place] [address] Jairon Wyatt MD [address] [place] [address] [address] [place] [address] 07/06/2024 8:00 AM CDT Office Visit [facility] [address] [place] [address], [facility] [place] [phone] Jairon Wyatt MD [address] [place] [address] [address] [place] [address] Scheduled Procedures Name Priority Associated Diagnoses Date/Ti [...] DEPRESSION SCREENING 02/26/2024 SCREENING FOR DIABETES 12/30/2026 4, 07/02/2023, 03/11/2009, Additional history exists COLONOSCOPY - [...] Patient-Stated? Author Medication Management General No Magdalena Dunbar, RN Note: Expected end date: Ongoing Interventions: Take all medications as prescribed Let your doctor know right away about any changes in your medications Make sure to request a refill of your medication at least one week prior to your last dose Procedures Procedure Name Priority Date/Time Associated Diagnosis Comments PATHOLOGY TISSUE Routine 02/06/2024 9:48 AM MILITARY COMMUNICATIONS SPECIALIST Alcoholic cirrhosis of liver with ascites (HCC) EGD Routine 02/06/2024 9:34 AM MILITARY COMMUNICATIONS SPECIALIST Alcoholic cirrhosis of liver with ascites (HCC) Elevated liver enzymes Alcoholic cirrhosis of liver without ascites (HCC) Secondary esophageal varices without bleeding (HCC) [place] [facility] E[place] FLEX TRANSORAL DX 02/06/2024 9:34 AM MILITARY COMMUNICATIONS SPECIALIST Alcoholic cirrhosis of liver with ascites (HCC) Special Needs EGD 1st available Received: Today Rosalba Meneses RN [facility] Schedulers - Endoscopy [facility] please schedule this pt for routine EGD with Dr. Santos first available. Thanks. CINTHIA Navarrete Received Date Received Time Dec 31, 2023 9:55 AM COMPREHENSIVE METABOLIC PANEL Routine 12/31/2023 7:13 AM MILITARY COMMUNICATIONS SPECIALIST Alcoholic cirrhosis of liver with ascites (HCC) Elevated liver enzymes Alcoholic cirrhosis of liver without ascites (HCC) Secondary esophageal varices without bleeding (HCC) HEPATITIS SCREEN ACUTE Routine 03/09/2009 4:20 AM MILITARY COMMUNICATIONS SPECIALIST Acute Pancreatitis (Hcc) from Last 3 Months or Most Recently Relevant to Health Maintenance Results * PATHOLOGY TISSUE (02/06/2024 9:48 AM [facility]) Case Report Surgical Pathology Report Case: [id number] Authorizing Provider: Jairon Wyatt, Collected: 02/06/2024 09:48 AM Ordering Location: [facility] Received: 02/06/2024 11:01 AM Pathologist: Jodie Squires MD Specimen: Gastric, gastric biopsies r/o H. pylori 02/07/2024 3:31 PM [facility] Final Diagnosis Stomach, biopsy (A): - No histopathologic abnormality - No active inflammation or H. pylori organisms (H&E examination) 02/07/2024 3:31 PM [facility] Microscopic Description and Comment Microscopic examination substantiates the final diagnosis. 02/07/2024 3:31 PM [facility] Clinical History The patient is a 53-year-old man with cirrhosis and suspected esophageal varices. Operative procedure/findings: EGD - LA grade D esophagitis; portal hypertensive gastropathy and gastritis, biopsied to rule out H. pylori. 02/07/2024 3:31 PM [facility] Gross Description The requisition and specimen(s) are identified with the patient's name Osmany Anthony. Received in formalin, specimen A , are 4 pink-molina tissues, 0.2-0.5 cm in greatest dimension and 1.4 x 0.2 x 0.2 cm in aggregate, submitted in toto in cassette A1. DF 02/07/2024 3:31 PM [facility] Pathologist Location at [facility] 02/07/2024 3:31 PM [facility] Disclaimer The performance characteristics of all immunohistochemical and indirect immunofluorescence stains (if any) cited in this report were determined by the Histopathology Laboratory of [facility]. Some of these tests [...] the attending (teaching) pathologist. 02/07/2024 3:31 PM MILITARY COMMUNICATIONS SPECIALIST [facility] LAB Embedded Images 02/07/2024 3:31 PM MILITARY COMMUNICATIONS SPECIALIST [facility]Y LAB Biopsy, NOS GASTRIC CONTENTS SPECIMEN / Unknown 02/06/2024 9:48 AM MILITARY COMMUNICATIONS SPECIALIST 02/06/2024 11:01 AM MILITARY COMMUNICATIONS SPECIALIST Comment:Pre-op diagnosis: Alcoholic cirrhosis of liver with ascites (HCC) [K70.31] Jairon Wyatt MD LAB - PATHOLOG Y/CYTOLOGY ORDERABLES [facility] [address] [place] [address], [facility] [phone] * EGD (02/06/2024 9:34 AM MILITARY COMMUNICATIONS SPECIALIST) Report Endoscopy POC Endoscopy Department Report _ Patient Name: Osmany Anthony Procedure Date: 02/06/2024 9:34 AM Date of : 1970 Classification: Outpatient Gender: Male Ethnicity: Not or Race: White _ Providers: Jairon Wyatt Referring MD: John Paul Johnston (Referring ) Procedure: Upper GI endoscopy Indications: Cirrhosis with [...] entire procedure. Procedure Code(s): --- Professional --- 10517, Esophagogastroduo denoscopy, flexible, transoral; with biopsy, single or multiple Diagnosis Code(s): --- Professional --- K74.60, Unspecified cirrhosis of liver I85.10, Secondary esophageal varices without bleeding K21.00, Gastro-esophageal reflux disease with esophagitis, without bleeding K76.6, Portal hypertension K31.89, Other diseases of stomach and duodenum K29.70, Gastritis, unspecified, without bleeding K25.9, Gastric ulcer, unspecified as acute or chronic, without hemorrhage or perforation CPT copyright 2021 [employer]. All rights reserved. The codes documented in this report are preliminary and upon transcribing operator head review may be revised to meet current compliance requirements. Jairon Wyatt, 02/06/2024 9:59:28 AM Note Initiated On: 02/06/2024 9:34 AM Number of Addenda: 0 [facility] [address] [place], [place] [id number] [place] [address] PROVATION 02/06/2024 9:34 AM MILITARY COMMUNICATIONS SPECIALIST Jairon Wyatt MD GI PROCEDURE O RDERABLES [facility] PROVATION * (ABNORMAL) COMPREHENSIVE METABOLIC PANEL (12/31/2023 7:13 AM MILITARY COMMUNICATIONS SPECIALIST) BUN 13 7 - 26 mg/dL 12/31/2023 8:20 AM [facility] Creatinine 0.93 0.71 - 1.16 mg/dL 12/31/2023 8:20 AM [facility] Sodium 140 136 - 145 mmol/L 12/31/2023 8:20 AM [facility] Potassium 4.0 3.5 - 4.5 mmol/L 12/31/2023 8:20 AM [facility] Chloride 105 98 - 107 mmol/L 12/31/2023 8:20 AM [facility] CO2 26 22 - 29 mmol/L 12/31/2023 8:20 AM [facility] Glucose 128(H) 70 - 99 mg/dL 12/31/2023 8:20 AM [facility] Calcium 9.6 8.4 - 10.2 mg/dL 12/31/2023 8:20 AM [facility] Protein Total 7.7 6.0 - 8.3 g/dL 12/31/2023 8:20 AM [facility] Albumin 4.0 3.4 - 5.0 g/dL 12/31/2023 8:20 AM [facility] Bilirubin Total 1.0 0.2 - 1.2 mg/dL 12/31/2023 8:20 AM [facility] Alkaline Phosphatase 183(H) 40 - 150 U/L 12/31/2023 8:20 AM [facility] ALT 16 5 - 55 U/L 12/31/2023 8:20 AM [facility] AST 18 5 - 34 U/L 12/31/2023 8:20 AM [facility] Anion Gap 9 6 - 16 12/31/2023 8:20 AM [facility] BUN/Creatinine Ratio 14 7 - 23 12/31/2023 8:20 AM [facility] Osmolality Calculated 292 275 - 295 mOsm/kg 12/31/2023 8:20 AM [facility] Albumin/Globulin Ratio 1.1 1.1 - 2.3 12/31/2023 8:20 AM [facility] eGFR by CKD-EPI >90 >=90 mL/min/1.7 3 m2 12/31/2023 8:20 AM [facility] Blood BLOOD SPECIMEN / Unknown Lab Venipuncture / Unknown 12/31/2023 7:13 AM MILITARY COMMUNICATIONS SPECIALIST 12/31/2023 7:50 AM MILITARY COMMUNICATIONS SPECIALIST Jairon Wyatt MD LAB - CHEMISTR Y ORDERABLES [facility] [address] [place] [phone] [phone] * HEPATITIS SCREEN ACUTE (03/09/2009 4:20 AM MILITARY COMMUNICATIONS SPECIALIST) Hepatitis A Virus Antibody IgM Nonreactive Nonreactive [facility] Hepatitis B Core Virus Antibody IgM Nonreactive Nonreactive [facility] Hepatitis B Virus Surface Antigen Nonreactive Nonreactive [facility] Hepatitis C Antibody Screen Nonreactive Nonreactive [facility] BLOOD SPECIMEN / Unknown 03/09/2009 4:20 AM MILITARY COMMUNICATIONS SPECIALIST 03/09/2009 4:28 AM MILITARY COMMUNICATIONS SPECIALIST Narrative Resulting Agency Comment Performed By [facility] Lab - [facility] [address] [place] [address] Hilton Campos MD LAB - CHEMISTRY ADWOA COPPOLA [facility] [address] [place] [address] from Last 3 Months or Most Recently Relevant to Health Maintenance Advance Directives * Full Code (Latest Code Status on File) Date Activated Date Inactivated Comments 03/07/2009 6:15 PM 03/12/2009 1:51 AM * Full Code Date Activated Date Inactivated Comments 11/18/2008 5:59 AM 11/20/2008 8:53 PM Care Teams System Planning Engineer Relationship Specialty Start Date End Date John Paul Johnston MD [address] [place] [phone] PCP - General Family Medicine 04/09/23
--- OUTSIDE RECORDS SUMMARY | 2024-04-20 10:46 | XMS_ITS | Referral Summary ---
Author Organization [facility] [address] [facility] lto Address [address] [place] [address] Care Team Providers Care Cyber Instructor Name Role Phone Hilton Baron DO Primary Care Provider [phone] Allergies No known active allergies Medications cholecalcifero l (Dialyvite Vitamin D3 Max) 30839 unit tablet 9 Active omega-3 fatty acids-fish [...] on file Legal Sex Male 9:16 AM SANDFILL OPERATOR SURFACE Gender Identity Not on file Sexual Orientation Not on file Last Filed Vital Signs Vital Sign Reading Time Taken Comments Blood Pressure 99/61 01/21/2023 12:10 PM SANDFILL OPERATOR SURFACE Pulse 76 01/21/2023 12:10 PM SANDFILL OPERATOR SURFACE Temperature 36.7 C (98.1 F) 01/21/2023 7:31 AM SANDFILL OPERATOR SURFACE Respiratory Rate 16 01/21/2023 12:1 0 PM SANDFILL OPERATOR SURFACE Oxygen Saturation 96% 01/21/2023 12: 10 PM SANDFILL OPERATOR SURFACE Inhaled Oxygen Concentration - - Weight 88.3 kg (194 lb 11.2 oz) 01/19/2023 7:45 PM SANDFILL OPERATOR SURFACE Height 170.2 cm (5' 7 ) 01/19/2023 7:45 PM SANDFILL OPERATOR SURFACE Body Mass Index 30.49 01/19/2023 7:45 PM SANDFILL OPERATOR SURFACE Plan of Treatment Not on file Procedures Procedure Name Priority Date/Time Associated Diagnosis Comments COLONOSCOPY 01/21/2023 11:06 AM SANDFILL OPERATOR SURFACE from Last 3 Months or Most Recently Relevant to Health Maintenance Results * COLONOSCOPY (01/21/2023 11:06 AM SANDFILL OPERATOR SURFACE) Anatomical Region Laterality Modality Other Narrative Procedure Note Keisha Blankenship MD - 01/21/2023 11:06 AM CST [facility] Patient Name: Osmany Anthony Procedure Date: 01/21/2023 11:06AM Date of : 1970 Admit Type: Inpatient Age: 52 Gender: Male Note Status: Finalized Attending MD: Keisha Blankenship M.D. Procedure Date: 01/21/2023 Procedure: Colonoscopy Indications: Hematochezia Providers: Keisha Blankenship M.D., SARTHAK Calderon (Anesthesia Staff), Suma Dykes RN, [facility], Account Executive [employer] Referring MD: Andriy Morales M.D. Medicines: Monitored [...] by the physician, the nurse and the footwear stitcher in the procedure room. Mental Status Examination: [...] daily. - Repeat colonoscopy in 5-10 years [facility]. Procedure Code(s): --- Professional --- 33174, Colonoscopy, flexible; with biopsy, singleor multiple Diagnosis Code(s): --- Professional --- D12.7, Benign neoplasm of rectosigmoid junction K64.2, Third degree hemorrhoids K92.1, Melena (includes Hematochezia) K57.30, Diverticulosis of large intestine without perforation or abscess without bleeding CPT copyright 2020 [employer]. All rights reserved. The codes documented in this report are preliminary and upon court specialist reviewmay be revised to meet current compliance requirements. Electronically signed by Keisha Blankenship M.D. Keisha Blankenship M.D. 01/21/2023 11:40:29 AM Number of Addenda: 0 Note Initiated On: 01/21/2023 11:06 AM Keisha Blankenship MD ENDOSCOPY PROCEDURES Fi nal Result from Last 3 Months or Most Recently Relevant to Health Maintenance Insurance [facility] [employer] [facility] ACCESS Advance Directives For more information, please contact: [phone] * Full Code (Latest Code Status on File) Date Activated Date Inactivated Comments 01/19/2023 8:25 PM 01/21/2023 5:03 PM Care Teams Cyber Instructor Relationship Specialty Start Date End Date Hilton Baron DO PCP - General Family Medicine 03/07/21
--- OUTSIDE RECORDS SUMMARY | 2024-04-20 10:46 | XMS_ITS | Patient Health Summary ---
Author Organization [facility] Address [address] [place] [address] Care Team Providers Care Professor Of Exercise Science Name Role Phone John Paul Johnston MD Primary Care Provider [phone] Note from [facility],non-owned Affiliates and Associated Physician Practices is amultiple site organization consisting of ambulatory clinics and hospital sitesin [place], [place], [place] and [place]. This disclosure is being madepursuant to the Care Everywhere program and may not contain all information available regarding this patient. Last updated 17.[facility] Allergies No known active allergies Medications * [...] MOUTH EVERY DAY 3 refills by 03/12/2025 Active Problems Problem Noted Date Diagnosed Date [...] Comments Blood Pressure 100/62 02/06/2024 10:20 AM SHELL PRESS OPERATOR Pulse 63 02/06/2024 10:21 AM SHELL PRESS OPERATOR Temperature 36.6 C (97.9 F) 02/06/2024 10:20 AM SHELL PRESS OPERATOR Respiratory Rate 16 02/06/2024 10:2 1 AM SHELL PRESS OPERATOR Oxygen Saturation 95% 02/06/2024 10: 21 AM SHELL PRESS OPERATOR Inhaled Oxygen Concentration - - Weight 96.1 kg (211 lb 14.4 oz) 02/06/2024 8:49 AM SHELL PRESS OPERATOR Height 180.3 cm (5' 11 ) 02/06/2024 8:49 AM SHELL PRESS OPERATOR Body Mass Index 29.55 02/06/2024 8:49 AM SHELL PRESS OPERATOR Procedures * PATHOLOGY TISSUE(Performed 02/06/2024) Performed for Alcoholic cirrhosis of liver with ascites (HCC) * EGD(Performed 02/06/2024) Performed for Alcoholic cirrhosis of liver with ascites (HCC), Elevated liver enzymes, Alcoholic cirrhosis of liver without ascites (HCC), Secondary esophageal varices without bleeding (HCC) * DE ED EGD FLEX TRANSORAL DX(Performed 02/06/2024) Performed [...] Secondary esophageal varices without bleeding (HCC) * DE LIVER ELASTOGRAPHY(Performed 04/09/2023) Performed for Elevated liver [...] Performed for Acute Pancreatitis (Hcc) * CYTOLOGY NON-SPECIAL EDUCATION DIRECTOR PANEL(Performed 03/09/2009) Performed for Acute Pancreatitis (Hcc) [...] Results * PATHOLOGY TISSUE (02/06/2024 9:48 AM SHELL PRESS OPERATOR) Case Report Surgical Pathology Report Case: [id number] Authorizing Provider: Jairon Wyatt, Collected: 02/06/2024 09:48 AM Ordering Location: [facility] Received: 02/06/2024 11:01 AM Pathologist: Jodie Squires MD Specimen: Gastric, gastric biopsies r/o H. pylori 02/07/2024 3:31 PM SHELL PRESS OPERATOR [facility] Final Diagnosis Stomach, biopsy (A): - No histopathologic abnormality - No active inflammation or H. pylori organisms (H&E examination) 02/07/2024 3:31 PM SHELL PRESS OPERATOR [facility] Microscopic Description and Comment Microscopic examination substantiates the final diagnosis. 02/07/2024 3:31 PM [facility] Clinical History The patient is a 53-year-old man with cirrhosis and suspected esophageal varices. Operative procedure/findings: EGD - LA grade D esophagitis; portal hypertensive gastropathy and gastritis, biopsied to rule out H. pylori. 02/07/2024 3:31 PM [facility] Gross Description The requisition and specimen(s) are identified with the patient's name Osmany Anthony. Received in formalin, specimen A , are 4 pink-de leon tissues, 0.2-0.5 cm in greatest dimension and 1.4 x 0.2 x 0.2 cm in aggregate, submitted in toto in cassette A1. DF 02/07/2024 3:31 PM [facility] Pathologist Location at [facility] 02/07/2024 3:31 PM [facility] Disclaimer The performance characteristics of all immunohistochemical and indirect immunofluorescence stains (if any) cited in this report were determined by the Histopathology Laboratory of [facility]. Some of these tests were developed by [...] the attending (teaching) pathologist. 02/07/2024 3:31 PM [facility] Embedded Images 02/07/2024 3:31 PM [facility] Biopsy, NOS GASTRIC CONTENTS SPECIMEN / Unknown 02/06/2024 9:48 AM SHELL PRESS OPERATOR 02/06/2024 11:01 AM [facility] Comment:Pre-op diagnosis: Alcoholic cirrhosis of liver with ascites (HCC) [K70.31] Jairon Wyatt MD LAB - PATHOLOG Y/CYTOLOGY ORDERABLES [facility] [address] [place] [address], [facility] [phone] * EGD (02/06/2024 9:34 AM SHELL PRESS OPERATOR) Report Endoscopy POC Endoscopy Department Report _ [...] entire procedure. Procedure Code(s): --- Professional --- 54320, Esophagogastroduo denoscopy, flexible, transoral; with biopsy, single or multiple Diagnosis Code(s): --- Professional --- K74.60, Unspecified cirrhosis of liver I85.10, Secondary esophageal varices without bleeding K21.00, Gastro-esophageal reflux disease with esophagitis, without bleeding K76.6, Portal hypertension K31.89, Other diseases of stomach and duodenum K29.70, Gastritis, unspecified, without bleeding K25.9, Gastric ulcer, unspecified as acute or chronic, without hemorrhage or perforation CPT copyright 2021 [employer]. All rights reserved. The codes documented in this report are preliminary and upon straight ruling machine operator review may be revised to meet current compliance requirements. Jairon Wyatt, 02/06/2024 9:59:28 AM Note Initiated On: 02/06/2024 9:34 AM Number of Addenda: [address] [address] [facility] 02/06/2024 9:34 AM SHELL PRESS OPERATOR Jairon Wyatt MD GI PROCEDURE O RDERABLES [facility] * US ABDOMEN LIMITED (12/31/2023 8:02 AM SHELL PRESS OPERATOR) Only the most recent of3 resultswithin the time period is included. Anatomical Region Laterality Modality Abdomen Ultrasound 12/31/2023 8:42 AM SHELL PRESS OPERATOR Impressions 12/31/2023 2:29 PM SHELL PRESS OPERATOR IMPRESSION: Liver Visualization Score A: No or minimal limitations. US-1 Negative. Repeat surveillance US in 6 months. Patent hepatic vasculature. 1.Hepatic cirrhosis with sequela of portal hypertension including ascites and splenomegaly. Report drafted by Jase Brown MD > Dictated by Jase Brown MD (Technical Mgr) 12/31/2023 8:42 AM Igor White MD have personally reviewed and interpreted this examination/study. > Interpreting Provider: Igor Munguia MD on 12/31/2023 2:29 PM Narrative 12/31/2023 2:29 PM SHELL PRESS OPERATOR PROCEDURE: US ABDOMEN LIMITED, DATE/TIME OF EXAM: 12/31/2023 8:02 AM, LOCATION [facility] INDICATION: K70.31: Alcoholic cirrhosis of liver with [...] OF EXAM: 12/31/2023 8:02 AM, LOCATION [facility] INDICATION: K70.31: Alcoholic cirrhosis of liver with [...] MD > Dictated by Jase Brown MD (Technical Mgr) 12/31/2023 8:42 AM IIgor MD have personally reviewed and interpreted this examination/study. > Interpreting Provider: Igor Munguia MD on 12/31/2023 2:29 PM Jairon Wyatt MD US ORDERABLES * PT-INR [facility] (12/31/2023 7:13 AM SHELL PRESS OPERATOR) Only the most recent of2 resultswithin the time period is included. PT 14.3 12.1 - 14.8 Seconds 12/31/2023 8:12 AM SHELL PRESS OPERATOR [facility] INR 1.1 See Comment 12/31/2023 8:12 AM [facility] Comment:The suggested therap eutic range for standard coumadin (warfarin) therapy is an INR of 2.0-3.0. For high-risk patients (Mechanical Mitral Valve Prosthesis, etc.), the suggested prophylactic therapeutic range is an INR of 2.5-3.5. Blood BLOOD SPECIMEN / Unknown Lab Venipuncture / Unknown 12/31/2023 7:13 AM SHELL PRESS OPERATOR 12/31/2023 7:48 AM SHELL PRESS OPERATOR Jairon Wyatt MD LAB - COAGULAT ION ORDERABLES Performing Organization Address City/[facility]/ZIP Co de Phone Number [address] [address], [facility] [phone] * ALPHA FETOPROTEIN BLOOD TUMOR MARKER (12/31/2023 7:13 AM SHELL PRESS OPERATOR) Only the most recent of2 resultswithin the time period is included. [facility] Alpha-Fetoprote in Tumor Marker 4.2 <=8.3 ng/mL 12/31/2023 8:35 AM [facility] Comment: AFP values will vary depending on testing procedure used. Results are not comparable across different methods. AFP values obtained by [facility] using an Portillo Alinity Immunoassay. Blood BLOOD SPECIMEN / Unknown Lab Venipuncture / Unknown 12/31/2023 7:13 AM SHELL PRESS OPERATOR 12/31/2023 7:49 AM SHELL PRESS OPERATOR Jairon Wyatt MD LAB - CHEMISTR Y ORDERABLES [address] [address], [place] [phone] * (ABNORMAL) CBC WITH DIFFERENTIAL (12/31/2023 7:13 AM SHELL PRESS OPERATOR) Only the most recent of7 resultswithin the time period is included. [facility] WBC 11.0(H) 4.0 - 10.7 x10E9/L 12/31/2023 7:59 AM [facility] RBC Count 4.94 4.30 - 5.80 x10E12/L 12/31/2023 7:59 AM [facility] Hemoglobin 16.4 13.3 - 17.5 g/dL 12/31/2023 7:59 AM [facility] Hematocrit 47.3 38.7 - 51.1 % 12/31/2023 7:59 AM [facility] MCV 95.7 80.0 - 98.0 fL 12/31/2023 7:59 AM [facility] MCH 33.2 26.7 - 33.6 pg 12/31/2023 7:59 AM [facility] MCHC 34.7 31.7 - 36.3 g/dL 12/31/2023 7:59 AM [facility] RDW-CV 13.1 11.3 - 14.8 % 12/31/2023 7:59 AM [facility] Platelet Count 159 150 - 420 x10E9/L 12/31/2023 7:59 AM [facility] MPV 11.1 7.8 - 11.4 fL 12/31/2023 7:59 AM [facility] Neutrophil % 66.3 41.0 - 74.0 % 12/31/2023 7:59 AM [facility] Lymphocyte % 22.2 17.0 - 47.0 % 12/31/2023 7:59 AM [facility] Monocyte % 7.9 3.0 - 11.0 % 12/31/2023 7:59 AM [facility] Eosinophil % 2.4 0.0 - 7.0 % 12/31/2023 7:59 AM [facility] Basophil % 0.9 0.0 - 1.6 % 12/31/2023 7:59 AM [facility] Immature Granulocytes % 0.3 0.0 - 1.0 % 12/31/2023 7:59 AM [facility] Neutrophil Absolute 7.27 1.60 - 7.50 x10E9/L 12/31/2023 7:59 AM [facility] Lymphocyte Absolute 2.43 1.00 - 4.40 x10E9/L 12/31/2023 7:59 AM [facility] Monocyte Absolute 0.86 0.15 - 1.00 x10E9/L 12/31/2023 7:59 AM [facility] Eosinophil Absolute 0.26 0.00 - 0.60 x10E9/L 12/31/2023 7:59 AM [facility] Basophil Absolute 0.10 0.00 - 0.13 x10E9/L 12/31/2023 7:59 AM [facility] Blood BLOOD SPECIMEN / Unknown Lab Venipuncture / Unknown 12/31/2023 7:13 AM SHELL PRESS OPERATOR 12/31/2023 7:50 AM [facility] Jairon Wyatt MD LAB - HEMATOLO GY ORDERABLES [address] [address], [facility] [phone] * (ABNORMAL) COMPREHENSIVE METABOLIC PANEL (12/31/2023 7:13 AM [facility]) Only the most recent of6 resultswithin the time period is included. BUN 13 7 - 26 mg/dL 12/31/2023 8:20 AM [facility] Creatinine 0.93 0.71 - 1.16 mg/dL 12/31/2023 8:20 AM [facility] Sodium 140 136 - 145 mmol/L 12/31/2023 8:20 AM [facility] Potassium 4.0 3.5 - 4.5 mmol/L 12/31/2023 8:20 AM [facility] Chloride 105 98 - 107 mmol/L 12/31/2023 8:20 AM [facility] CO2 26 22 - 29 mmol/L 12/31/2023 8:20 AM [facility] Glucose 128(H) 70 - 99 mg/dL 12/31/2023 8:20 AM [facility] Calcium 9.6 8.4 - 10.2 mg/dL 12/31/2023 8:20 AM [facility] Protein Total 7.7 6.0 - 8.3 g/dL 12/31/2023 8:20 AM [facility] Albumin 4.0 3.4 - 5.0 g/dL 12/31/2023 8:20 AM [facility] Bilirubin Total 1.0 0.2 - 1.2 mg/dL 12/31/2023 8:20 AM [facility] Alkaline Phosphatase 183(H) 40 - 150 U/L 12/31/2023 8:20 AM [facility] ALT 16 5 - 55 U/L 12/31/2023 8:20 AM [facility] AST 18 5 - 34 U/L 12/31/2023 8:20 AM [facility] Anion Gap 9 6 - 16 12/31/2023 8:20 AM [facility] BUN/Creatinine Ratio 14 7 - 23 12/31/2023 8:20 AM [facility] Osmolality Calculated 292 275 - 295 mOsm/kg 12/31/2023 8:20 AM [facility] Albumin/Globulin Ratio 1.1 1.1 - 2.3 12/31/2023 8:20 AM [facility] eGFR by CKD-EPI >90 >=90 mL/min/1.7 3 m2 12/31/2023 8:20 AM [facility] Blood BLOOD SPECIMEN / Unknown Lab Venipuncture / Unknown 12/31/2023 7:13 AM SHELL PRESS OPERATOR 12/31/2023 7:50 AM [facility] Jairon Wyatt MD LAB - CHEMISTR Y ORDERABLES Performing Organization Address City/State/[facility] Co de Phone Number [facility] [address] [place] [address], [facility] [phone] * PHOSPHATIDYLETHANOL (PETH) (07/02/2023 1:24 PM CDT) PEth 16:0/18.1 (POPEth) <10 ng/mL 07/04/2023 5:31 PM CDT [facility] ([facility]) Comment: PEth 16:0/18:1 (POPEth) Less than 10 ng/mL............Not detected Less than 20 ng/mL............Abstinence or light alcohol consumption 20 - 200 ng/mL................Moderate alcohol consumption Greater than 200 ng/mL........Heavy alcohol consumption or chronic alcohol use (Reference: Maria D Miranda and Casimiro Mandujano 2018 J. Forensic Sci) PEth 16:0/18.2 (PLPEth) <10 ng/mL 07/04/2023 5:31 PM CDT [facility] ([facility]) Comment:Reference ranges are not well established. EER Peth See Note 07/04/2023 5:31 PM CDT [facility] ([facility]) Comment: Authorized individuals can access the [facility] Enhanced Report using the following link: [email or web address] Interpretation PEth See Comment 07/04/2023 5:31 PM CDT [facility] ([facility]) Comment: Phosphatidylethanol (PEth) is a group of [...] developed and its performance characteristics determined by [facility]. It has not been cleared or approved by the U.S. Food and Drug Administration. This test was performed in a CLIA-certified laboratory and is intended for clinical purposes. Performed By: [facility] [address] [place] [address] [employer] Layer: Shady Wallace MD, PhD CLIA Number: [id number] Blood BLOOD SPECIMEN / Unknown Lab Venipuncture / Unknown 07/02/2023 1:24 PM CDT 07/02/2023 1:39 PM CDT Jairon Wyatt MD LAB - CHEMISTR Y ORDERABLES [facility] ([facility]) [address] [id number], [facility] * DE LIVER ELASTOGRAPHY (04/09/2023 9:14 AM SHELL PRESS OPERATOR) Narrative Albert Ding MD - 04/09/2023 9:14 AM SHELL PRESS OPERATOR Albert Ding MD 04/09/2023 12:52 PM Diagnosis: [...] patients with nonalcoholic fatty liver disease. Gastroenterology 2019;156:4271-3211. Yanira MS, Dianne R, Van Natdestiny ML, et al. Vibration-controlled transient elastography to assess [...] and Agile4 scores (Keanu, 202). Jose TA, Van Natdestiny ML, Jr M, Celso A, et al. Validation of the accuracy of the FAST score for detecting patients with at-risk nonalcoholic steatohepatitis (MORRIS) in a [place] cohort and comparison to other non-invasive algorithms. PLoS ONE (2021) 17: [id number]. Keanu AJ, Jelly J, Yissel ZM, et al. Enhanced diagnosis of advanced fibrosis and cirrhosis in individuals with NAFLD using FibroScan-based Agile scores. J Hepatol (2022) 78: 247-259. Fibroscan LSM can also be used with laboratory parameters without formulas to assess prognosis. According to the Baveno-VII criteria (Brewer, 202), Fibroscan LSM ?15 kPa plus a platelet count of ?[id number]/L rules out clinically significant portal hypertension (sensitivity and negative predictive value >90%) in patients with compensated advanced chronic liver disease. Brewer R, Clayton J, Salty-Garret G, Alexei T, Alec C on behalf of the Baveno VII Faculty. Baveno VII--Renewing consensus in portal hypertension. J Hepatol (2021) 76: 959-974 Assessing the likelihood of advanced fibrosis in patients with intermediate liver stiffness measurement (LSM) by Fibroscan (e.g., 8-15 kPa) can be improved by also calculating the FIB-4 score (Ilia et al. Hepatology Communications 2019;3:7161-7966) or NAFLD Fibrosis score (Bajwa et al. Clinical Gastroenterology and Hepatology 2019;17:5601-6979 using routine clinical data. Note: 1. Fibroscan [...] additional interpretive data was last updated 06/30/22.) [email or web address] Jairon Wyatt MD PROCEDURE/RASHIDA Silviano SURGICAL ORDERABLES * CARDIAC EKG ORDER (03/15/2009 8:50 AM SHELL PRESS OPERATOR) Only the most recent of2 resultswithin the time period is included. Narrative 03/15/2009 8:50 AM SHELL PRESS OPERATOR Ordered by an unspecified provider. Transcriptions Document, Scanned - 03/07/2009 12:00 AM SHELL PRESS OPERATOR Scanned Document CARDIAC SERVICES ORD ERABLES * CARDIAC RHYTHM STRIP ORDER (03/15/2009 8:50 AM SHELL PRESS OPERATOR) Narrative 03/15/2009 8:50 AM SHELL PRESS OPERATOR Ordered by an unspecified provider. Transcriptions Document, Scanned - 03/07/2009 12:00 AM SHELL PRESS OPERATOR Scanned Document CARDIAC SERVICES ORD ERABLES * (ABNORMAL) POTASSIUM BLOOD (03/11/2009 11:56 AM SHELL PRESS OPERATOR) Potassium 3.9(DE) 3.6 - 5.0 mmol/L [facility] BLOOD SPECIMEN / Unknown 03/11/2009 11:56 AM SHELL PRESS OPERATOR 03/11/2009 11:56 AM SHELL PRESS OPERATOR Narrative [facility] - 03/11/2009 12:18 PM SHELL PRESS OPERATOR After K+ repaced,call if still low Arleth Hart MD LAB - CHEMISTRY ADWOA COPPOLA Performing Organization Address [facility] Co de Phone Number [facility] [address] [place] [address] * MAGNESIUM BLOOD (03/11/2009 3:10 AM SHELL PRESS OPERATOR) Only the most recent of3 resultswithin the time period is included. Pathologist [facility] Magnesium 2.0 1.6 - 2.3 mg/dl [facility] BLOOD SPECIMEN / Unknown 03/11/2009 3:10 AM SHELL PRESS OPERATOR 03/11/2009 3:55 AM SHELL PRESS OPERATOR Arleth Hart MD LAB - CHEMISTRY ADWOA COPPOLA Performing Organization Address [facility] de Phone Number [facility] [address] [place] [address] * (ABNORMAL) LIPASE BLOOD (03/10/2009 3:00 AM SHELL PRESS OPERATOR) Only the most recent of4 resultswithin the time period is included. Pathologist [facility] Lipase 2420(H) 23.0 - 300.0 U/L [facility] BLOOD SPECIMEN / Unknown 03/10/2009 3:00 AM SHELL PRESS OPERATOR 03/10/2009 4:02 AM SHELL PRESS OPERATOR Hilton Campos MD LAB - CHEMISTRY ORDMarcelino COPPOLA Performing Organization Address [facility] de Phone Number [facility] [address] [place] [address] * (ABNORMAL) AMYLASE BLOOD (03/10/2009 3:00 AM SHELL PRESS OPERATOR) Pathologist [facility] Amylase 514(H) 30.0 - 110.0 U/L [facility] BLOOD SPECIMEN / Unknown 03/10/2009 3:00 AM SHELL PRESS OPERATOR 03/10/2009 4:02 AM SHELL PRESS OPERATOR iHlton Campos MD LAB - CHEMISTRY ORDMarcelino COPPOLA Performing Organization Address City/[facility]/ZIP Co de Phone Number [facility] [address] [place] [address] * HEPATITIS B SURFACE ANTIGEN (03/09/2009 1:55 PM SHELL PRESS OPERATOR) Pathologist [facility] Hepatitis B Virus Surface Antigen Nonreactive Nonreactive [facility] BLOOD SPECIMEN / Unknown 03/09/2009 1:55 PM SHELL PRESS OPERATOR 03/09/2009 2:21 PM SHELL PRESS OPERATOR Narrative Resulting Agency Comment Performed By [facility] [address] [place] [address] Arleth Hart MD LAB - CHEMISTRY ADWOA COPPOLA Performing Organization Address [facility] Co de Phone Number [facility] [address] [place] [address] * (ABNORMAL) COAGULATION PANEL W D-DIMER (03/09/2009 4:20 AM SHELL PRESS OPERATOR) Pathologist [facility] PT 10.7 9.4 - 11.2 seconds [facility] PTT 28.5 24.0 - 32.0 seconds [facility] Fibrinogen 375 200 - 400 mg/dl [facility] Platelet Count 93(L) 130.0 - 400.0 1000/mm3 [facility] D-Dimer 3.80(H) 0.43 - 2.96 mg/L [facility] Comment D-Dimer [facility] Comment: Elevated results above the reference [...] Generalized hospitalized patient. INR 1.0 SEE BELOW [facility] Comment: 0.9-1.1 Normal 2.0-3.0 Conventional 2.5-3.5 Intensive BLOOD SPECIMEN / Unknown 03/09/2009 4:20 AM SHELL PRESS OPERATOR 03/09/2009 4:28 AM SHELL PRESS OPERATOR Hilton Campos MD LAB - COAGULATION OR DERABLES Performing Organization Address [facility] de Phone Number [facility] [address] [place] [address] * (ABNORMAL) BASIC METABOLIC PANEL (CALCIUM TOTAL) (03/09/2009 4:20 AM SHELL PRESS OPERATOR) Only the most recent of2 resultswithin the time period is included. BUN 8(L) 9.0 - 20.0 mg/dl [facility] Sodium 133(L) 137 - 145 mmol/L [facility] Potassium 2.9(L) 3.6 - 5.0 mmol/L [facility] Chloride 99 98.0 - 107.0 mmol/L [facility] CO2 27 22.0 - 30.0 mEq/L [facility] Anion Gap 7.5 [facility] Glucose 83 75 - 110 mg/dl [facility] Creatinine 0.7(L) 0.8 - 1.5 mg/dl [facility] Calcium 8.3(L) 8.4 - 10.2 mg/dl [facility] eGFR by MDRD 134.9 ml/min/1.7 3m2 [facility] BLOOD SPECIMEN / Unknown 03/09/2009 4:20 AM SHELL PRESS OPERATOR 03/09/2009 4:28 AM SHELL PRESS OPERATOR Arleth Hart MD LAB - CHEMISTRY ORDE ABDON Performing Organization Address [facility] de Phone Number [facility] [address] [place] [address] * (ABNORMAL) HEPATIC FUNCTION PANEL (03/09/2009 4:20 AM SHELL PRESS OPERATOR) AST 248(H) 17.0 - 59.0 U/L [facility] ALT 242(H) 21.0 - 72.0 U/L [facility] Alkaline Phosphatase 134(H) 38.0 - 126.0 U/L [facility] Bilirubin Total 1.0 0.2 - 1.3 mg/dl [facility] Albumin 3.3(L) 3.5 - 5.0 gm/dl [facility] Bilirubin Indirect 0.6 0.0 - 1.1 mg/dl [facility] Bilirubin Direct 0.0 0.0 - 0.3 mg/dl [facility] Protein Total 6.3(DE) 6.3 - 8.2 gm/dl [facility] BLOOD SPECIMEN / Unknown 03/09/2009 4:20 AM SHELL PRESS OPERATOR 03/09/2009 4:28 AM SHELL PRESS OPERATOR Arleth Hart MD LAB - CHEMISTRY ORDMarcelino COPPOLA Performing Organization Address [facility] Co de Phone Number [facility] [address] [place] [address] * HEPATITIS SCREEN ACUTE (03/09/2009 4:20 AM SHELL PRESS OPERATOR) Hepatitis A Virus Antibody IgM Nonreactive Nonreactive [facility] Hepatitis B Core Virus Antibody IgM Nonreactive Nonreactive [facility] Hepatitis B Virus Surface Antigen Nonreactive Nonreactive [facility] Hepatitis C Antibody Screen Nonreactive Nonreactive [facility] [facility] BLOOD SPECIMEN / Unknown 03/09/2009 4:20 AM SHELL PRESS OPERATOR 03/09/2009 4:28 AM SHELL PRESS OPERATOR Narrative Resulting Agency Comment Performed By [facility] [place] [address] Hilton Campos MD LAB - CHEMISTRY ADWOA COPPOLA Performing Organization Address [facility] de Phone Number [facility] [address] [place] [address] * CYTOLOGY NON-SPECIAL EDUCATION DIRECTOR PANEL (03/09/2009 12:00 AM SHELL PRESS OPERATOR) [facility] Surgeon DR. CAMPOS [facility] Physician(s) DR. DUMONT [facility] Report Text [facility] Comment: INDICATION FOR PROCEDURE OPERATION EGD SPECIMEN ESOPHAGUS BRUSHING GROSS RECEIVED 2 SLIDES MICROSCOPIC TWO SMEARS OF ESOPHAGEAL BRUSHINGS WERE EXAMINED. SQUAMOUS CELLS AND INFLAMMATORY CELLS ARE SEEN. NO MALIGNANT CELLS ARE IDENTIFIED. JW/DC Diagnosis [facility] Comment: DIAGNOSIS 1. ESOPHAGUS, BRUSHING -- NEGATIVE FOR MALIGNANCY JW/DC Released by Norah VINES [facility] CPT Code 57392 [facility] ESOPHAGEAL BRUSHINGS SPECIMEN / Unknown 03/09/2009 03/09/2009 10:46 AM SHELL PRESS OPERATOR Arleth Hart MD LAB - PATHOLOGY/CYTO LOGY ORDERABLES Performing Organization Address [facility] de Phone Number [facility] [address] [place] [address] * GROSS + MICRO EXAM (03/09/2009 12:00 AM SHELL PRESS OPERATOR) [facility] Surgeon DR. Barrera CAMPOS [facility] Grossed By ARINA DWYER [facility] Gross Report [facility] Comment: COPY TO INDICATION FOR PROCEDURE OPERATION EGD GROSS THE SPECIMEN IS RECEIVED IN ONE CONTAINER LABELED WITH THE PATIENT'S NAME AND ESOPHAGUS. THE SPECIMEN CONSISTS OF MULTIPLE MINUTE TO 2 MM FLECKS AND FRAGMENTS OF PALE DE LEON-RED TISSUE^ STAINED AND ALL SUBMITTED IN A SINGLE CASSETTE. LW/KM Microscopic Examination [facility] Comment: MICROSCOPIC MICROSCOPIC EXAMINATION REVEALS LARGE [...] IS NO EVIDENCE OF MALIGNANCY. GM/KM Diagnosis [facility] Comment: DIAGNOSIS 1. ESOPHAGUS, BIOPSY -- ACUTE INFLAMMATION WITH EXTENSIVE ULCERATION (SEE MICROSCOPIC DESCRIPTION) -- BIOPSY SAMPLE CONTAINS UNDERLYING SMOOTH MUSCLE -- NEGATIVE FOR MALIGNANCY GM/KM Released by Cari DENNEY. [facility] CPT Code 27211 [facility] ESOPHAGEAL BIOPSY SPECIMEN / Unknown 03/09/2009 03/09/2009 10:42 AM SHELL PRESS OPERATOR Arleth Hart MD LAB - PATHOLOGY/CYTO LOGY ORDERABLES Performing Organization Address [facility] Co de Phone Number [facility] [address] [place] [address] * OCCULT BLOOD FECES (03/08/2009 2:00 PM SHELL PRESS OPERATOR) Occult Blood Positive Negative [facility] STOOL SPECIMEN / Unknown 03/08/2009 2:00 PM SHELL PRESS OPERATOR 03/08/2009 2:07 PM SHELL PRESS OPERATOR Arleth Hart MD LAB - BODY FLUID ORD ERABLES Performing Organization Address [facility] Co de Phone Number [facility] [id number] [place] [address] * WBC SMEAR (03/08/2009 2:00 PM SHELL PRESS OPERATOR) WBC Feces Few PMN /LPF [facility] STOOL SPECIMEN / Unknown 03/08/2009 2:00 PM SHELL PRESS OPERATOR 03/08/2009 2:07 PM SHELL PRESS OPERATOR Arleth Hart MD LAB - MICROBIOLOGY O RDERABLES Performing Organization Address [facility] Co de Phone Number [facility] [id number] [place] [address] * O+P ANTIGEN PANEL (03/08/2009 2:00 PM SHELL PRESS OPERATOR) Giardia Antigen Feces NEGATIVE [facility] Cryptosporidium Antigen Feces NEGATIVE [facility] Entamoeba histolytica Antigen NEGATIVE [facility] Comment Parasite Antigen 03/09 1101 [facility] Additional Comment [id number]/09/03 0 1251 [facility] STOOL SPECIMEN / Unknown 03/08/2009 2:00 PM SHELL PRESS OPERATOR 03/08/2009 2:07 PM SHELL PRESS OPERATOR Narrative Resulting Agency Comment Performed By [facility] [place] [address] Arleth Hart MD LAB - MICROBIOLOGY O RDERABLES Performing Organization Address [facility] Co de Phone Number [facility] [address] [place] [address] * CULTURE STOOL PANEL (03/08/2009 2:00 PM SHELL PRESS OPERATOR) Result [facility] Comment: Final CULTURE Shiga Toxin neg No Salmonella, Shigella, Campylobacter or E coli 0157-H7 isolated. STOOL SPECIMEN / Unknown 03/08/2009 2:00 PM SHELL PRESS OPERATOR 03/08/2009 2:07 PM SHELL PRESS OPERATOR Narrative Resulting Agency Comment Performed By [facility] [address] [place] [address] Arleth Hart MD LAB - MICROBIOLOGY O RDERABLES Performing Organization Address [facility] Co de Phone Number [facility] [phone] [place] [address] * TRIGLYCERIDES BLOOD (03/08/2009 10:35 AM SHELL PRESS OPERATOR) Triglycerides 132 0.0 - 250.0 mg/dl [facility] BLOOD SPECIMEN / Unknown 03/08/2009 10:35 AM SHELL PRESS OPERATOR 03/08/2009 11:14 AM SHELL PRESS OPERATOR Arleth Hart MD LAB - CHEMISTRY ADWOA COPPOLA Performing Organization Address [facility] de Phone Number [facility] [address] [place] [address] * ALCOHOL ETHYL BLOOD (03/07/2009 9:30 PM SHELL PRESS OPERATOR) Ethanol <10 0.0 - 10.0 mg/dl [facility] BLOOD SPECIMEN / Unknown 03/07/2009 9:30 PM SHELL PRESS OPERATOR 03/07/2009 9:41 PM SHELL PRESS OPERATOR Cliff Perry MD LAB - CHEMISTRY ADWOA COPPOLA Performing Organization Address [facility] de Phone Number [facility] [address] [place] [address] * CT HEAD - NON CONTRAST (03/07/2009 4:18 PM SHELL PRESS OPERATOR) Anatomical Region Laterality Modality Head Computed Tomogra phy 03/07/2009 5:51 PM SHELL PRESS OPERATOR Narrative 03/07/2009 5:52 PM SHELL PRESS OPERATOR Examination: Noncontrast CT brain. Indication for examination: [...] SCREEN URINE ABUSE INHOUSE (03/07/2009 2:38 PM SHELL PRESS OPERATOR) Only the most recent of2 resultswithin the [...] Negative Negative [facility] Legal Disclaimer Urine [facility] Comment: This drug screen is designed for MEDICAL purposes only. It is not to be used for legal purposes including but not limited to workman's comp, police investigations, occupational issues, child custody, etc. Any positive result is only presumptive and must be confirmed with a separate confirmatory test. URINE / Unknown 03/07/2009 2 :38 PM SHELL PRESS OPERATOR 03/07/2009 2:39 PM SHELL PRESS OPERATOR Eugene Cali MD LAB - URINE CHEMI STRY ORDERABLES [facility] [address] [place] [address] * URINALYSIS ROUTINE AUTO (03/07/2009 2:38 PM SHELL PRESS OPERATOR) Color UA DK YELLOW [facility] Character UA CLOUDY [facility] Specific [place] UA 1.020 1.005 - 1.0300 [facility] pH UA 6.0 4.6 - 8.0 pH Units [facility] Leukocyte UA NEGATIVE Negative /ul [facility] Nitrite UA NEGATIVE Negative [facility] Protein UA 300 Negative mg/dl [facility] Glucose UA 100 Normal mg/dl [facility] Ketone UA 15 Negative mg/dl [facility] Urobilinogen UA 1.0 Normal Grace Units [facility] Bilirubin UA SMALL Negative mg/dl [facility] Blood UA SMALL Negative /ul [facility] WBC UA 5-10 /HPF [facility] RBC UA 10-20 /HPF [facility] Epithelial Cell UA <5 /HPF [facility] Mucus UA 2+ [facility] Casts UA 20-50 hyaline, 2-5 coarse granular /LPF [facility] Bacteria UA NEGATIVE [facility] URINE SPECIMEN OBTAINED BY CLEAN CATCH PROCEDURE / Unknown 03/07/2009 2:38 PM SHELL PRESS OPERATOR 03/07/2009 2:38 PM SHELL PRESS OPERATOR Narrative [facility] - 03/07/2009 3:21 PM SHELL PRESS OPERATOR If patient is from intermediate OR * Eugene Cali MD LAB - URINALYSIS ORDERABLES Performing Organization Address City/[facility] Co de Phone Number [facility] [address] [place] [address] * TROPONIN I (03/07/2009 1:34 PM SHELL PRESS OPERATOR) Pathologist [facility] Troponin I <0.10 SEE BELOW ng/ml [facility] Comment: Normal <0.10 [place] 0.10-0.99 Positive >=1.00 SERUM OR PLASMA SPECIMEN / Unknown 03/07/2009 1:34 PM SHELL PRESS OPERATOR 03/07/2009 2:51 PM SHELL PRESS OPERATOR Cliff Perry MD LAB - CHEMISTRY ORDE ABDON Performing Organization Address [facility] Co de Phone Number [facility] [address] [place] [address] * (ABNORMAL) DRUG SCREEN TOX LIMITED BLOOD PANEL (03/07/2009 1:34 PM SHELL PRESS OPERATOR) Only the most recent of2 resultswithin the time period is included. Pathologist [facility] Acetaminophen <10.0(L) 10.0 - 20.0 ug/ml [facility] Ethanol 262(HH) 0.0 - 10.0 mg/dl [facility] Salicylate <1.0(L) 2.0 - 29.0 mg/dl [facility] BLOOD SPECIMEN / Unknown 03/07/2009 1:34 PM SHELL PRESS OPERATOR 03/07/2009 1:52 PM SHELL PRESS OPERATOR Narrative [facility] - 03/07/2009 2:18 PM SHELL PRESS OPERATOR Perform for patients greater than 6* Eugene Cali MD LAB - TOXICOLOGY ORDERABLES Performing Organization Address [facility] Co de Phone Number [facility] [address] [place] [address] * MYOGLOBIN BLOOD (03/07/2009 1:34 PM SHELL PRESS OPERATOR) Myoglobin 97.0 0.0 - 110.0 ng/ml [facility] SERUM OR PLASMA SPECIMEN / Unknown 03/07/2009 1:34 PM SHELL PRESS OPERATOR 03/07/2009 2:51 PM SHELL PRESS OPERATOR Cliff Perry MD LAB - CHEMISTRY ORDE RABKIN Performing Organization Address [facility] de Phone Number [facility] [address] [place] [address] * XR CHEST 1VW PORTABLE (03/07/2009 3:10 AM SHELL PRESS OPERATOR) Anatomical Region Laterality Modality Chest Radiographic Oralia ging 03/07/2009 3:49 PM SHELL PRESS OPERATOR Impressions 03/07/2009 3:49 PM SHELL PRESS OPERATOR No acute cardiopulmonary disease Narrative 03/07/2009 3:49 PM SHELL PRESS OPERATOR Portable AP chest Indication: Cough Comparison: None [...] HUMERUS 2+ VW RIGHT (03/07/2009 3:10 AM SHELL PRESS OPERATOR) Anatomical Region Laterality Modality Upper Extremity Radiographic Oralia ging 03/07/2009 4:05 PM SHELL PRESS OPERATOR Narrative 03/07/2009 4:05 PM SHELL PRESS OPERATOR Two views right humerus Indication: Right arm [...] (11/18/2008 5:50 AM CDT) RPR Nonreactive Nonreactive [facility] BLOOD SPECIMEN / Unknown 11/18/2008 5:50 AM CDT 11/18/2008 7:05 AM CDT Delfino Vincent MD LAB - CHEMISTRY ADWOA COPPOLA Performing Organization Address [facility] Co de Phone Number [facility] [address] [place] [address] * TSH (11/18/2008 5:50 AM CDT) TSH 1.161 0.35 - 5.50 uIU/ml [facility] BLOOD SPECIMEN / Unknown 11/18/2008 5:50 AM CDT 11/18/2008 7:05 AM CDT Narrative Resulting Agency Comment Performed By [facility] [address] [place] [address] Delfino Vincent MD LAB - CHEMISTRY ADWOA COPPOLA [facility] [address] [place] [address] Care Teams Professor Of Exercise Science Relationship Specialty Start Date End Date John Paul Johnston MD [address] [place] [phone] PCP - General Family Medicine 04/09/23
--- OUTSIDE RECORDS SUMMARY | 2024-04-20 10:46 | XMS_ITS | Referral Summary ---
Author Organization [facility] Address [address] [place] [address] Care Team Providers Care Shift Mgr Name Role Phone John Paul Johnston MD Primary Care Provider [phone] Source Comments [facility],non-owned Affiliates and Associated Physician Practices is amultiple site organization consisting of ambulatory clinics and hospital sitesin [place], [place], [place] and [place]. This disclosure is being madepursuant to the Care Everywhere program and may not contain all information available regarding this patient. Last updated 17.[facility] Encounters Date Type Department Care Team Description 03/12/2024 Refill [facility] [address] [place] [address] Jairon Wyatt MD Refill Request 02/10/2024 Orders Only [facility] [address] [place] [address] Jairon Wyatt MD Secondary esophageal varices without bleeding (HCC) 02/06/2024 Travel 02/06/2024 9:41 AM PSYCHODRAMATIST Anesthesia Event [facility] [address] [place] [address] Hilton Kwok MD Byrum, Michael, Anes Asst 02/06/2024 10:00 AM PSYCHODRAMATIST - 02/06/2024 10:30 AM PSYCHODRAMATIST Surgery [facility] [address] [place] [address] Jairon Wyatt MD EGD miguelGualberto saira 02/06/2024 8:29 AM PSYCHODRAMATIST - 02/06/2024 10:29 AM PSYCHODRAMATIST Hospital Encounter [facility] [address] [place] [address] Jairon Wyatt MD Gastroenterology Discharge Disposition: Home or Self Care 01/31/2024 Patient Outreach [facility] [address] [place] [address] Crystal Freeman, CINTHIA from Last 3 Months Allergies No known [...] Comments Blood Pressure 100/62 02/06/2024 10:20 AM PSYCHODRAMATIST Pulse 63 02/06/2024 10:21 AM PSYCHODRAMATIST Temperature 36.6 C (97.9 F) 02/06/2024 10:20 AM PSYCHODRAMATIST Respiratory Rate 16 02/06/2024 10:2 1 AM PSYCHODRAMATIST Oxygen Saturation 95% 02/06/2024 10: 21 AM PSYCHODRAMATIST Inhaled Oxygen Concentration - - Weight 96.1 kg (211 lb 14.4 oz) 02/06/2024 8:49 AM PSYCHODRAMATIST Height 180.3 cm (5' 11 ) 02/06/2024 8:49 AM PSYCHODRAMATIST Body Mass Index 29.55 02/06/2024 8:49 AM PSYCHODRAMATIST Functional Status Functional Status Response Date of [...] Description 05/21/2024 7:55 AM CDT Hospital Encounter [facility] [address] [place] [address] Jairon Wyatt MD [address] [place] [address] [address] [place] [address] Surgery General 05/21/2024 7:55 AM CDT - 05/21/2024 8:25 AM CDT Surgery [facility] [address] [place] [address] Jairon Wyatt MD [address] [place] [address] [address] [place] [address] EGD w/ saira 07/06/2024 7:15 AM CDT Appointment [facility] [address] [place] [phone] Jairon Wyatt MD [address] [place] [address] [address] [place] [address] 07/06/2024 8:00 AM CDT Office Visit [facility] GI [address] [place] [address], [place] [address] Jairon Wyatt MD [address] [place] [address] [address] [place] [address] Scheduled Procedures Name Priority Associated Diagnoses Date/Ti [...] Comments PATHOLOGY TISSUE Routine 02/06/2024 9:48 AM PSYCHODRAMATIST Alcoholic cirrhosis of liver with ascites (HCC) EGD Routine 02/06/2024 9:34 AM PSYCHODRAMATIST Alcoholic cirrhosis of liver with ascites (HCC) Elevated liver enzymes Alcoholic cirrhosis of liver without ascites (HCC) Secondary esophageal varices without bleeding (HCC) OR ED EGD FLEX TRANSORAL DX 02/06/2024 9:34 AM PSYCHODRAMATIST Alcoholic cirrhosis of liver with ascites (HCC) Special Needs EGD 1st available Received: Today Rosalba Meneses RN P [facility] Schedulers - Endoscopy Pool [facility] please schedule this pt for routine EGD with Dr. Santos first available. Thanks. CINTHIA Navarrete Received Date Received Time Dec 31, 2023 9:55 AM COMPREHENSIVE METABOLIC PANEL Routine 12/31/2023 7:13 AM PSYCHODRAMATIST Alcoholic cirrhosis of liver with ascites (HCC) Elevated liver enzymes Alcoholic cirrhosis of liver without ascites (HCC) Secondary esophageal varices without bleeding (HCC) HEPATITIS SCREEN ACUTE Routine 03/09/2009 4:20 AM PSYCHODRAMATIST Acute Pancreatitis (Hcc) from Last 3 Months or Most Recently Relevant to Health Maintenance Results * PATHOLOGY TISSUE (02/06/2024 9:48 AM PSYCHODRAMATIST) Case Report Surgical Pathology Report Case: [id number] Authorizing Provider: Jairon Wyatt, Collected: 02/06/2024 09:48 AM Ordering Location: [facility] Received: 02/06/2024 11:01 AM Pathologist: Jodie Squires MD Specimen: Gastric, gastric biopsies r/o H. pylori 02/07/2024 3:31 PM [facility] Final Diagnosis Stomach, biopsy (A): - No histopathologic abnormality - No active inflammation or H. pylori organisms (H&E examination) 02/07/2024 3:31 PM [facility] Microscopic Description and Comment Microscopic examination substantiates the final diagnosis. 02/07/2024 3:31 PM [facility] Clinical History The patient is a 53-year-old man with cirrhosis and suspected esophageal varices. Operative procedure/findings: EGD - LA grade D esophagitis; portal hypertensive gastropathy and gastritis, biopsied to rule out H. pylori. 02/07/2024 3:31 PM [facility] Gross Description The requisition and specimen(s) are identified with the patient's name Osmany Anthony. Received in formalin, specimen A , are 4 pink-molina tissues, 0.2-0.5 cm in greatest dimension and 1.4 x 0.2 x 0.2 cm in aggregate, submitted in toto in cassette A1. DF 02/07/2024 3:31 PM [facility] Pathologist Location at [facility] 02/07/2024 3:31 PM [facility] Disclaimer The performance characteristics of all immunohistochemical and indirect immunofluorescence stains (if any) cited in this report were determined by the Histopathology Laboratory of [facility]. Some of these tests were developed [...] the attending (teaching) pathologist. 02/07/2024 3:31 PM [facility] Embedded Images 02/07/2024 3:31 PM [facility] Biopsy, NOS GASTRIC CONTENTS SPECIMEN / Unknown 02/06/2024 9:48 AM PSYCHODRAMATIST 02/06/2024 11:01 AM PSYCHODRAMATIST Comment:Pre-op diagnosis: Alcoholic cirrhosis of liver with ascites (HCC) [K70.31] Jairon Wyatt MD LAB - PATHOLOG Y/CYTOLOGY ORDERABLES [facility] [address] [place] [address], [facility] [phone] * EGD (02/06/2024 9:34 AM PSYCHODRAMATIST) Report Endoscopy POC Endoscopy Department Report _ [...] entire procedure. Procedure Code(s): --- Professional --- 48704, Esophagogastroduo denoscopy, flexible, transoral; with biopsy, single or multiple Diagnosis Code(s): --- Professional --- K74.60, Unspecified cirrhosis of liver I85.10, Secondary esophageal varices without bleeding K21.00, Gastro-esophageal reflux disease with esophagitis, without bleeding K76.6, Portal hypertension K31.89, Other diseases of stomach and duodenum K29.70, Gastritis, unspecified, without bleeding K25.9, Gastric ulcer, unspecified as acute or chronic, without hemorrhage or perforation CPT copyright 2021 [employer]. All rights reserved. The codes documented in this report are preliminary and upon manager of training review may be revised to meet current compliance requirements. Jairon Wyatt, 02/06/2024 9:59:28 AM Note Initiated On: 02/06/2024 9:34 AM Number of Addenda: [address] [place] [address] PROVATION 02/06/2024 9:34 AM PSYCHODRAMATIST Jairon Wyatt MD GI PROCEDURE O RDERABLES [facility] PROVATION * (ABNORMAL) COMPREHENSIVE METABOLIC PANEL (12/31/2023 7:13 AM PSYCHODRAMATIST) BUN 13 7 - 26 mg/dL 12/31/2023 8:20 AM PSYCHODRAMATIST [facility] Creatinine 0.93 0.71 - 1.16 mg/dL [...] Lab Venipuncture / Unknown 12/31/2023 7:13 AM PSYCHODRAMATIST 12/31/2023 7:50 AM PSYCHODRAMATIST Jairon Wyatt MD LAB - CHEMISTR Y ORDERABLES [place] [address] [place] [address] [phone] * HEPATITIS SCREEN ACUTE (03/09/2009 4:20 AM PSYCHODRAMATIST) Hepatitis A Virus Antibody IgM Nonreactive Nonreactive [facility] Hepatitis B Core Virus Antibody IgM Nonreactive Nonreactive [facility] Hepatitis B Virus Surface Antigen Nonreactive Nonreactive [facility] Hepatitis C Antibody Screen Nonreactive Nonreactive [facility] BLOOD SPECIMEN / Unknown 03/09/2009 4:20 AM PSYCHODRAMATIST 03/09/2009 4:28 AM PSYCHODRAMATIST Narrative Resulting Agency Comment Performed By [facility] [address] [place] [address] Hilton Campos MD LAB - CHEMISTRY ORDMarcelino COPPOLA [facility] [address] [place] [address] from Last 3 Months or Most Recently Relevant to Health Maintenance Advance Directives * Full Code (Latest Code Status on File) Date Activated Date Inactivated Comments 03/07/2009 6:15 PM 03/12/2009 1:51 AM * Full Code Date Activated Date Inactivated Comments 11/18/2008 5:59 AM 11/20/2008 8:53 PM Care Teams Shift Mgr Relationship Specialty Start Date End Date John Paul Johnston MD [address] [place] [phone] PCP - General Family Medicine 04/09/23
== END 2024-04-20 09:49 | disposition home or self-care (01) ==
LOC: ANHBWCLAB 09:49 → ANHBWCIMG 09:49
PROVIDERS: PCP Nurse Practitioner Family; Visit Provider Nurse Practitioner Family
DX: M47.896 Other spondylosis, lumbar region (principal); M43.12 Spondylolisthesis, cervical region; M50.321 Other cervical disc degeneration at C4-C5 level; M50.322 Other cervical disc degeneration at C5-C6 level; M47.892 Other spondylosis, cervical region
CPT/HCPCS: 72040; 72072; 72100

== ENCOUNTER 2024-05-28 09:15 | Emergency (ER) | payer BC, SELFPAY ==
[2024-05-28 09:23] VITALS: BP 116/77; PULSE 67; RESP 16; TEMP 36.7; O2SAT 99
--- NOTE | 2024-05-28 09:24 | ED.SKABFB ---
HPI - Skin/Abscess/Foreign Bdy General Chief complaint: Skin/Abscess/Foreign Body Stated complaint: Skin Problem Time Seen by Provider: 05/28/24 09:38 Source: patient, RN notes reviewed and old records reviewed Mode of arrival: ambulatory Limitations: no limitations History of Present Illness HPI narrative: 53-year-old male presents to the [facility] with a possible abscess. States he was seen in end of March by his primary care provider was prescribed doxycycline for the area. Over the last couple of days the area has become bigger. Patient states last night he squeezed it that it did drain clear and red fluid. Has multiple cyst-like structures across the back of his head Related Data Home Medications ?Medication ?Instructions ?Recorded ?Confirmed ?Last Taken ?Type aspirin 81 mg tablet,delayed 81 mg PO DAILY 01/08/23 04/16/24 Unknown History release carvedilol 3.125 mg tablet 3.125 mg PO Q12H 04/15/23 04/16/24 Unknown History cholecalciferol (vitamin D3) 25 25 mcg PO DAILY 04/15/23 04/16/24 Unknown History mcg (1,000 unit) capsule (Vitamin D3) mecobalamin (vitamin B12) 1,000 1,000 mcg sublingual DAILY 04/15/23 04/16/24 Unknown History mcg disintegrating tablet,sublingual omeprazole 20 mg capsule,delayed 20 mg PO DAILY 04/16/24 04/16/24 Unknown History release Allergies Allergy/AdvReac Type Severity Reaction Status Date / Time No Known Allergies Allergy Verified 05/28/24 09:42 Review of Systems Review of Systems: All systems reviewed & are unremarkable except as noted in HPI and below Constitutional: Constitutional: Reports no additional constitutional complaints ENT: Reports system reviewed and no additional complaints, except as documented Cardiovascular: Cardiovascular: Reports no additional cardiovascular complaints, Denies chest pain and Denies dyspnea Respiratory: Respiratory: Reports no additional respiratory complaints, Denies chest congestion, Denies cough and Denies dyspnea Musculoskeletal: Musculoskeletal: Reports no additional musculoskeletal complaints Integumentary/Breasts: Skin/Breast: Reports as per HPI [facility] Past Medical History Medical History Cervicalgia Ventral hernia without obstruction or gangrene Umbilical hernia without obstruction and without gangrene Other terminal gauger (current) drug therapy Low vitamin D level Former smoker Diastasis recti Alkaline phosphatase elevation Cholelithiasis Liver cyst Splenomegaly Cirrhosis Alcohol use Elevated liver function tests Polycythemia vera Family History Family History Father Malignant neoplasm of prostate Grandparent Family history of malignant neoplasm Mother Family history of malignant neoplasm of uterus Social History Social History Smoking status: Former smoker Second hand tobacco smoke exposure: Yes Smoking end date: 02/25/11 Alcohol intake: current Do You Feel Safe in your Home?: Yes Lack of Transportation: No Lack of Food: Never True Current Housing: I Have Housing Concerned About Future Housing: No Difficulty Paying Gas/Electric Bills: No Difficulty Paying for Meds: No Currently Unemployed: No Education: Bachelor's Degree Difficulty w/ Childcare or Family Care: No Living arrangements: with family Comments At the time of my signature, I reviewed and agree with the nursing past medical, surgical, social, and family history. There is no relevant family history pertinent to the patient complaint. Exam Const: General: cooperative, healthy appearing, comfortable, no acute distress, well developed, alert and well nourished Nutritional Appearance: well nourished Orientation/consciousness: patient oriented x3 Limitations: no limitations HENMT: Head: normal to inspection Head images:  1. 2.5 cm raised area, fluctuance, red, not warm to touch Eyes: General: appearance normal, both eyes and all related structures Alignment and Position: alignment normal Neck: Neck: normal visual inspection, full ROM, no lymphadenopathy and no meningeal signs Chest: Chest palpation & inspection: normal inspection of the chest Resp: Effort & Inspection: normal respiratory effort and able to speak in complete sentences Auscultation: clear to auscultation bilaterally, no crackles, no rales, no rhonchi and no wheezes Cardio: Rate: regular rate Skin: General skin exam: normal color and no rashes or lesions noted Neuro: General: patient oriented x3, gait normal, moves all extremities and no meningeal signs Cognition (Neuro): normal cognition Speech: normal speech Gait exam (Neuro): Normal gait present Extrem: General: normal to inspection, full ROM, capillary refill normal and normal gait Psych: Appearance: grossly normal and well kempt Mental Status: mental status grossly normal Speech and movement: Normal speech and movement present and Clear speech present Affect: normal affect Attitude: cooperative Course Course Level of Care: Express Care Visit Vital Signs Vital signs: Vital Signs Temperature 98.1 F 05/28/24 09:23 Pulse Rate 67 05/28/24 09:23 Respiratory Rate 16 05/28/24 09:23 Blood Pressure 116/77 05/28/24 09:23 Pulse Oximetry 99 05/28/24 09:23 Oxygen Delivery Room Air 05/28/24 09:23 Temperature 98.1 F 05/28/24 09:23 Pulse Rate 67 05/28/24 09:23 Respiratory Rate 16 05/28/24 09:23 Blood Pressure 116/77 05/28/24 09:23 Pulse Oximetry 99 05/28/24 09:23 Oxygen Delivery Room Air 05/28/24 09:23 Reviewed Procedures Abscess I/D scalp: Date of Incision: 05/28/24 Time of Incision: 10:45 Local Anesthetic: none (LET) Amount of anesthesia used (mL): 3 Technique: incised with #11 blade Amount of fluid expressed (mL): 5 Irrigation: No Packing used?: none I&D Results: Other (Serous sanguinous) Abcess I&D Additional Comments: Explained procedure to patient. Verbal consent obtained. Had applied let for 15 minutes. Removed, cleaned with Betadine. 0.5 cm incision made in the center of the fluctuant area serous sanguinous fluid is noted. Patient tolerated well. Culture collected MDM - Skin/Abscess/Foreign Bdy MDM Narrative Medical decision making narrative: Patient sitting in exam. Nontoxic, vitals stable. Patient in no acute distress. Patient presents with concerns for abscess to the posterior head. Clean, drain. Culture sent Patient started on antibiotic Patient appropriate for outpatient treatment with close follow-up. Referred to plastics, dermatology Discharge instructions reviewed with patient, as well as provided in writing per nursing staff. The instructions also include specific and strict return/GO TO THE ER as well as f/u information. All questions have been answered, and the patient deny any further questions with discharge and discharge plan. Some parts of this dictation were generated by voice recognition software and may contain typographical and/or grammatical inaccuracies. Differential Diagnosis Differential diagnosis: Likely abscess of skin or subcutaneous tissue, cellulitis, contact dermatitis and other (Folliculitis) Critical Care Time Critical Care Time Critical Care Time: No Discharge Plan Discharge Clinical Impression: Cyst, Folliculitis Abscess of skin or subcutaneous tissue Qualifiers: Site of cutaneous abscess: head Qualified Code(s): L02.811 - Cutaneous abscess of head [any part, except face] Patient Disposition: Home, Self-Care Condition: Stable Instructions: Antibiotic Form, Folliculitis (ED), Abscess (ED), Abscess Incision and Drainage (DC) Additional Instructions: Wash area daily with warm soapy water. Using Cleocin topical for the lesions on your scalp Most importantly is following up with your primary and either Dermatology or Plastic Surgeon for evaluation of your cyst-like structures. Take oral antibiotic as prescribed While on oral antibiotics it is recommended that you take a probiotic or eat a yogurt a day to help reduce some side effects For new or worsening symptoms go directly to the emergency room [facility] dermatology [address] [place] [address] [phone] Patient Language: Korean Prescriptions: New clindamycin HCl [Cleocin HCl] 300 mg capsule 300 mg PO TID 7 Days Qty: 21 0RF clindamycin phosphate 1 % solution 1 applic topical DAILY Qty: 60 0RF No Action aspirin 81 mg tablet,delayed release (DR/EC) 81 mg PO DAILY cholecalciferol (vitamin D3) [Vitamin D3] 25 mcg (1,000 unit) capsule 25 mcg PO DAILY mecobalamin (vitamin B12) 1,000 mcg tablet,disintegrating 1,000 mcg sublingual DAILY Rx Instructions: place tablet under tongue and allow to dissolve for at least30 secs before swallowing carvedilol 3.125 mg tablet 3.125 mg PO Q12H Rx Instructions: must administer with a meal/food omeprazole 20 mg capsule,delayed release(DR/EC) 20 mg PO DAILY Follow-up/Referrals: Onur Callejas MD [Physician] - 3 Days (express care follow up Abscess and cystic structures posterior head) Karthik Wheeler MD [Physician] - 3 Days (Posterior head abscess and cystic structures) John Paul Johnston MD [Primary Care Provider] - Stand Alone Forms: Work/School Release IP Time of Disposition: 10:19
--- OUTSIDE RECORDS SUMMARY | 2024-05-28 09:29 | XMS_ITS | Referral Summary ---
Author Organization [facility] lt Address [address] [place] [address] Care Team Providers Care Automotive Instructor Name Role Phone Hilton Baron DO Primary Care Provider [phone] Allergies No known active allergies Medications cholecalcifero l (Dialyvite Vitamin D3 Max) 22121 unit tablet 9 Active omega-3 fatty acids-fish [...] Diagnosed Date Ascites due to alcoholic cirrhosis 01/20/2023 Alcohol-induced acute pancreatitis 01/20/2023 Hyponatremia 01/20/2023 Leukocytosis [...] on file Legal Sex Male 9:16 AM ECONOMIC CONSULTANT Gender Identity Not on file Sexual Orientation Not on file Last Filed Vital Signs Vital Sign Reading Time Taken Comments Blood Pressure 99/61 01/21/2023 12:10 PM ECONOMIC CONSULTANT Pulse 76 01/21/2023 12:10 PM ECONOMIC CONSULTANT Temperature 36.7 C (98.1 F) 01/21/2023 7:31 AM ECONOMIC CONSULTANT Respiratory Rate 16 01/21/2023 12:1 0 PM ECONOMIC CONSULTANT Oxygen Saturation 96% 01/21/2023 12: 10 PM ECONOMIC CONSULTANT Inhaled Oxygen Concentration - - Weight 88.3 kg (194 lb 11.2 oz) 01/19/2023 7:45 PM ECONOMIC CONSULTANT Height 170.2 cm (5' 7 ) 01/19/2023 7:45 PM ECONOMIC CONSULTANT Body Mass Index 30.49 01/19/2023 7:45 PM ECONOMIC CONSULTANT Plan of Treatment Not on file Procedures Procedure Name Priority Date/Time Associated Diagnosis Comments COLONOSCOPY 01/21/2023 11:06 AM ECONOMIC CONSULTANT from Last 3 Months or Most Recently Relevant to Health Maintenance Results * COLONOSCOPY (01/21/2023 11:06 AM ECONOMIC CONSULTANT) Anatomical Region Laterality Modality Other Narrative Procedure Note Keisha Blankenship MD - 01/21/2023 11:06 AM CST [facility] Endoscopy Lab Patient Name: Osmany Anthony Procedure Date: 01/21/2023 11:06AM Date of : 1970 Admit Type: Inpatient Age: 52 Gender: Male Note Status: Finalized Attending MD: Keihsa Blankenship M.D. Procedure Date: 01/21/2023 Procedure: Colonoscopy Indications: Hematochezia Providers: Keisha Blankenship M.D., SARTHAK Calderon (Anesthesia Staff), Suma Dykes RN, [facility], [place]benson, Distribution Coordinator Referring MD: Andriy Morales M.D. Medicines: Monitored [...] by the physician, the nurse and the tree feller in the procedure room. Mental Status Examination: [...] daily. - Repeat colonoscopy in 5-10 years [facility]. Procedure Code(s): --- Professional --- 11422, Colonoscopy, flexible; with biopsy, singleor multiple Diagnosis Code(s): --- Professional --- D12.7, Benign neoplasm of rectosigmoid junction K64.2, Third degree hemorrhoids K92.1, Melena (includes Hematochezia) K57.30, Diverticulosis of large intestine without perforation or abscess without bleeding CPT copyright 2020 [employer]. All rights reserved. The codes documented in this report are preliminary and upon grinder and honer operator automatic reviewmay be revised to meet current compliance requirements. Electronically signed by Keisha Blankenship M.D. Keisha Blankenship M.D. 01/21/2023 11:40:29 AM Number of Addenda: 0 Note Initiated On: 01/21/2023 11:06 AM Keisha Blankenship MD ENDOSCOPY PROCEDURES Fi nal Result from Last 3 Months or Most Recently Relevant to Health Maintenance Insurance [employer] TRADITIONAL [employer] ACCESS Advance Directives For more information, please contact: [phone] * Full Code (Latest Code Status on File) Date Activated Date Inactivated Comments 01/19/2023 8:25 PM 01/21/2023 5:03 PM Care Teams Automotive Instructor Relationship Specialty Start Date End Date Hilton Baron DO PCP - General Family Medicine 03/07/21
--- OUTSIDE RECORDS SUMMARY | 2024-05-28 09:29 | XMS_ITS | Clinical Summary ---
Author Organization [facility] lt Address [address] [place] [address] Care Team Providers Care Lease Purchase Truck Driver Name Role Phone Hilton Baron DO Primary Care Provider [phone] Allergies No known active allergies Medications cholecalcifero l (Dialyvite Vitamin D3 Max) 26646 unit tablet 9 Active omega-3 fatty acids-fish [...] on file Legal Sex Male 9:16 AM TRADITIONAL CHINESE HERBALIST Gender Identity Not on file Sexual Orientation Not on file Obstetrics History Last Filed Vital Signs Vital Sign Reading Time Taken Comments Blood Pressure 99/61 01/21/2023 12:10 PM TRADITIONAL CHINESE HERBALIST Pulse 76 01/21/2023 12:10 PM TRADITIONAL CHINESE HERBALIST Temperature 36.7 C (98.1 F) 01/21/2023 7:31 AM TRADITIONAL CHINESE HERBALIST Respiratory Rate 16 01/21/2023 12:1 0 PM TRADITIONAL CHINESE HERBALIST Oxygen Saturation 96% 01/21/2023 12: 10 PM TRADITIONAL CHINESE HERBALIST Inhaled Oxygen Concentration - - Weight 88.3 kg (194 lb 11.2 oz) 01/19/2023 7:45 PM TRADITIONAL CHINESE HERBALIST Height 170.2 cm (5' 7 ) 01/19/2023 7:45 PM TRADITIONAL CHINESE HERBALIST Body Mass Index 30.49 01/19/2023 7:45 PM TRADITIONAL CHINESE HERBALIST Plan of Treatment Health Maintenance Due Date Last Done Comments Depression Screening 1970 Hepatitis C Screening 1970 Prostate Cancer Screening-PSA 1970 DTaP/Tdap/Td Vaccine (1 - Tdap) 12/11/1982 Hepatitis B Screening 12/11/1989 Regular Well Visit/Exam 18-64 12/11/1989 Zoster Vaccine (1 of 2) 12/11/2021 Covid-19 Vaccine (3 - 2023-2 5 season) 2023 09/17/2020, 08/20/2020 Influenza Vaccine (Season Ended) 2024 Colon Cancer Screening-Colonoscopy 01/21/2033 01/21/2023 Pneumococcal vaccine <65 Aged Out No longer eligible based on patient's age to complete this topic Procedures Procedure Name Priority Date/Time Associated Diagnosis Comments COLONOSCOPY 01/21/2023 11:06 AM TRADITIONAL CHINESE HERBALIST from Last 3 Months or Most Recently Relevant to Health Maintenance Results * COLONOSCOPY (01/21/2023 11:06 AM TRADITIONAL CHINESE HERBALIST) Anatomical Region Laterality Modality Other Narrative Procedure Note Keisha Blankenship MD - 01/21/2023 11:[address] [facility] Endoscopy Lab Patient Name: Osmany Anthony Procedure Date: 01/21/2023 11:06AM Date of : 1970 Admit Type: Inpatient Age: 52 Gender: Male Note Status: Finalized Attending MD: Keisha Blankenship M.D. Procedure Date: 01/21/2023 Procedure: Colonoscopy Indications: Hematochezia Providers: Keisha Blankenship M.D., SARTHAK Calderon (Anesthesia Staff), Suma Dykes RN, Subhash, Driller Helper Referring MD: Andriy Morales M.D. Medicines: Monitored [...] by the physician, the nurse and the fermenting cellars supervisor in the procedure room. Mental Status Examination: [...] daily. - Repeat colonoscopy in 5-10 years [facility]. Procedure Code(s): --- Professional --- 25594, Colonoscopy, flexible; with biopsy, singleor multiple Diagnosis Code(s): --- Professional --- D12.7, Benign neoplasm of rectosigmoid junction K64.2, Third degree hemorrhoids K92.1, Melena (includes Hematochezia) K57.30, Diverticulosis of large intestine without perforation or abscess without bleeding CPT copyright 2020 [employer]. All rights reserved. The codes documented in this report are preliminary and upon structural biologist reviewmay be revised to meet current compliance requirements. Electronically signed by Keisha Blankenship M.D. Keisha Blankenship M.D. 01/21/2023 11:40:29 AM Number of Addenda: 0 Note Initiated On: 01/21/2023 11:06 AM Keisha Blankenship MD ENDOSCOPY PROCEDURES Fi nal Result from Last 3 Months or Most Recently Relevant to Health Maintenance Insurance TRADITIONAL Member Subscriber Plan / Payer (Ef fective 2020-Present) Name:Osmany Anthony Relation to Subscriber:Self Name:Raj Osmany Benson Payer ID:[id number] (NAIC) Type:[employer] Address: [address] [place] [address] ANTH ACCESS Member Subscriber Plan / Payer (Ef fective 2020-Present) Name:Osmany Anthony Relation to Subscriber:Self Name:Osmany Anthony Payer ID:[id number] (NAIC) Type:[employer] Address: [address] [place] [address] Advance Directives For more information, please contact: [phone] * Full Code (Latest Code Status on File) Date Activated Date Inactivated Comments 01/19/2023 8:25 PM 01/21/2023 5:03 PM Care Teams Lease Purchase Truck Driver Relationship Specialty Start Date End Date Hilton Baron DO PCP - General Family Medicine 03/07/21
--- OUTSIDE RECORDS SUMMARY | 2024-05-28 09:29 | XMS_ITS | Clinical Summary ---
Author Organization [facility] Address [address] [place] [address] Care Team Providers Care Civil Rights Representative Name Role Phone John Paul Johnston MD Primary Care Provider [phone] [phone] Source Comments [facility],non-owned Affiliates and Associated Physician Practices is amultiple site organization consisting of ambulatory clinics and hospital sitesin [place], [place], [place] and [place]. This disclosure is being madepursuant to the Care Everywhere program and may not contain all information available regarding this patient. Last updated 17.[facility] Allergies No known active allergies Medications * [...] Disease, Stomach Ulcer 90 capsule 3 02/06/2024 Active Additional Information Patient not taking.Reported on 05/21/2024 carvedilol (Coreg) 6.25 MG tabletIndication s:Bleeding Varicose Veins Take 1 (one) tablet by mouth 2 times daily with morning and evening meal Reasons: Bleeding Varicose Veins 180 tablet 3 02/06/2024 Active furosemide (Lasix) 40 MG tablet TAKE 1 TABLET BY MOUTH EVERY DAY 90 tablet 3 03/12/2024 Active Additional Information Patient not taking.Reported on 05/21/2024 Active Problems Problem Noted Date Diagnosed Date Alcoholic cirrhosis 04/09/2023 Overview (04/09/2023): 04/09/23 Fibroscan CA 217, LSM 74.3 kPa ETOH abuse 03/07/2009 Cough 03/07/2009 Fall 03/07/2009 Head injury 03/07/2009 Overview (11/25/2014): 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 es 11/17/2008 Encounters Date Type Department Care Team Description 05/21/2024 8:01 AM CDT Anesthesia Event [facility] END[facility]COPY [address] [place] [address] Lianne Benavides MD Dobbs, Kristin L, LEAD SOFTWARE ENGINEER-GERIATRIC PHYSICIAN 05/21/2024 7:55 AM CDT - 05/21/2024 8:30 AM CDT Surgery [facility] [address] [place] [address] Jairon Wyatt MD EGD w/ saira 05/21/2024 6:44 AM CDT - 05/21/2024 8:49 AM CDT Hospital Encounter [facility] [address] [place] [address] Jairon Wyatt MD Surgery General Discharge Disposition: Home or Self Care 05/21/2024 Travel 05/11/2024 Patient Outreach [facility] [address] [place] [address] Mary Osullivan RN Pre-op Instructions 05/11/2024 Patient Outreach [facility] [address] [place] [address] Mary Osullivan RN Pre-op Instructions 03/12/2024 Refill [facility] [address] [facility] [place] [address] Jairon Wyatt MD Refill Request from Last 3 Months Family History Medical [...] Sign Reading Time Taken Comments Blood Pressure 108/82 05/21/2024 8:43 AM CDT Pulse 69 05/21/2024 8:43 AM CDT Temperature 36 C (96.8 F) 05/21/2024 8:18 AM CDT Respiratory Rate 10 05/21/2024 8:43 AM CDT Oxygen Saturation 92% 05/21/2024 8:43 AM CDT Inhaled Oxygen Concentration - - Weight 94.3 kg (208 lb) 05/21/2024 7:17 AM CDT Height 172.7 cm (5' 8 ) 05/21/2024 7:17 AM CDT Body Mass Index 31.63 05/21/2024 7:17 AM CDT Plan of Treatment Upcoming Encounters Date Type Department Care Team (Late st Contact Info) Description 07/06/2024 7:15 AM CDT Appointment [facility] [address] [place] [address] Jairon Wyatt MD [address] [place] [address] 07/06/2024 8:00 AM CDT Office Visit [facility] [address] [facility] [place] [id number] Jairon Wyatt MD [address] [place] [address] [place] [address] Health Maintenance Due Date Last Done Comments [...] of 2) 12/11/2021 COVID-19 VACCINE (1 - season) 2023 DEPRESSION SCREENING 02/26/2024 INFLUENZA VACCINE (Season Ended) 2024 SCREENING FOR DIABETES 12/30/2026 , 07/02/2023, 03/11/2009, Additional history exists COLONOSCOPY - COLON CA SCREENING 01/21/2033 01/21/2023 Colorectal Cancer Screening 01/21/2033 HEPATITIS C SCREENING Completed 03/09/2009 HIB VACCINE Aged Out No longer eligi ble based on patient's age to complete this topic HPV VACCINE Aged Out No longer eligi ble based on patient's age to complete this topic MENINGOCOCCAL (Group B) VACCINE SHARED DECISION-MAKING Aged Out No longer eligible based on patient's age to complete this topic MENINGOCOCCAL GROUPS A/C/Y/W VACCINE Aged Out No longer eligible based [...] Date/Time Associated Diagnosis Comments PATHOLOGY TISSUE Routine 05/21/2024 8:08 AM CDT Esophagitis [place] ED EGD FLEX TRANSORAL DX 05/21/2024 7:55 AM CDT Esophagitis Special Needs Message Received: Today Jairon Wyatt MD [facility] Schedulers - Endoscopy Pool Please schedule repeat EGD with me in 3 month. Received Date Received Time Feb 06, 2024 10:06 AM EGD Routine 05/21/2024 7:37 AM CDT COMPREHENSIVE METABOLIC PANEL Routine 12/31/2023 7:13 AM MAIL TECHNICIAN Alcoholic cirrhosis of liver with ascites Elevated liver enzymes Alcoholic cirrhosis of liver without ascites Secondary esophageal varices without bleeding HEPATITIS SCREEN ACUTE Routine 03/09/2009 4:20 AM MAIL TECHNICIAN Acute Pancreatitis from Last 3 Months or Most Recently Relevant to Health Maintenance Results * PATHOLOGY TISSUE (05/21/2024 8:08 AM CDT) Case Report Surgical Pathology Report Case: [id number] Authorizing Provider: Jairon Wyatt, Collected: 05/21/2024 08:08 AM Ordering Location: [facility]COPY Received: 05/21/2024 10:01 AM Pathologist: Jodie Squires MD Specimen: Gastric, gastric bx R/O H pylori 05/22/2024 11:41 AM CDT [facility] Final Diagnosis Stomach, biopsy (A): - Mild reactive changes - No active inflammation or H. pylori organisms (H&E examination) 05/22/2024 11:[address] [facility] Microscopic Description and Comment Microscopic examination substantiates the final diagnosis. 05/22/2024 11:[address] [facility] Clinical History The patient is a 53-year-old man who presents for follow-up of esophageal varices. Operative procedure/findings: EGD - portal hypertensive gastropathy; gastritis, biopsied to rule out H. pylori 05/22/2024 11:[address] [facility] Gross Description The requisition and specimen(s) are identified with the patient's name, Osmany Anthony. Received in formalin, specimen A , are three molina-pink tissue fragments, 0.1-0.4 cm, 0.5 x 0.3 x 0.2 cm in aggregate , submitted in toto in cassette A1. IKD 05/22/2024 11:41 AM CDT [facility] Pathologist Location at [facility] 05/22/2024 11:[address] [facility] Disclaimer The performance characteristics of all immunohistochemical and indirect immunofluorescence stains (if any) cited in this report were determined by the Histopathology Laboratory of [facility]. Some of these tests were developed by [...] and interpreted by the attending (teaching) pathologist. 05/22/2024 11:[address] [facility] Embedded Images 05/22/2024 11:[address] [facility] Biopsy, NOS GASTRIC CONTENTS SPECIMEN / Unknown 05/21/2024 8:08 AM CDT 05/21/2024 10:01 AM CDT Comment:Pre-op diagnosis: Esophagitis [K20.90] Jairon Wyatt MD LAB - PATHOLOG Y/CYTOLOGY ORDERABLES [facility] [address] [place], [place] [id number] [place] [address] * EGD (05/21/2024 7:37 AM CDT) Report Endoscopy POC Endoscopy Department Report _ Patient Name: Osmany Anthony Procedure Date: 05/21/2024 7:37 AM Date of : 1970 Classification: Outpatient Gender: Male Ethnicity: Not or Race: White _ Providers: Jairon Wyatt Referring MD: John Paul Johnston (Referring MD) Procedure: Upper GI endoscopy Indications: Follow-up of esophageal varices Medications: Monitored Anesthesia Care Description [...] patient tolerated the procedure well. Findings: Grade I, large (> 5 mm) varices were found in the lower third of the esophagus. LA Grade D (one or more mucosal breaks involving at least 75% of esophageal circumference) esophagitis with no bleeding was found. Moderate portal hypertensive gastropathy was found in the stomach. Localized moderate inflammation characterized by erosions and erythema was found in the gastric antrum. Biopsies were taken with a cold forceps for Helicobacter pylori testing. The examined duodenum was normal. Estimated Blood Loss: Estimated blood loss: none. Complications: No immediate complications. Impression: - Grade I and large (> 5 mm) esophageal varices. - LA Grade D esophagitis with no bleeding. - Portal hypertensive gastropathy. - Gastritis. Biopsied. - Normal examined duodenum. Recommendation: - Await pathology results. - Repeat upper endoscopy in 6 months for surveillance. Attending Participation: I personally performed the entire procedure. Procedure Code(s): --- Professional --- 23120, Esophagogastroduo denoscopy, flexible, transoral; with biopsy, single or multiple Diagnosis Code(s): --- Professional --- I85.00, Esophageal varices without bleeding K20.90, Esophagitis, unspecified without bleeding K76.6, Portal hypertension K31.89, Other diseases of stomach and duodenum K29.70, Gastritis, unspecified, without bleeding CPT copyright 2021 [employer]. All rights reserved. The codes documented in this report are preliminary and upon valuation consultant review may be revised to meet current compliance requirements. Jairon Wyatt, 05/21/2024 8:17:42 AM Note Initiated On: 05/21/2024 7:37 AM Number of Addenda: [address] PROVATION 05/21/2024 7:37 AM CDT Jairon Wyatt MD GI PROCEDURE O RDERABLES [facility] PROVATION * (ABNORMAL) COMPREHENSIVE METABOLIC PANEL (12/31/2023 7:13 AM [facility]) BUN 13 7 - 26 mg/dL 12/31/2023 8:20 AM [facility] Creatinine 0.93 0.71 - 1.16 mg/dL 12/31/2023 8:20 AM [facility] Sodium 140 136 - 145 mmol/L 12/31/2023 8:20 AM [facility] Potassium 4.0 3.5 - 4.5 mmol/L 12/31/2023 8:20 AM [facility] Chloride 105 98 - 107 mmol/L 12/31/2023 8:20 AM [facility] CO2 26 22 - 29 mmol/L 12/31/2023 8:20 AM [facility] Glucose 128(H) 70 - 99 mg/dL 12/31/2023 8:20 AM [facility] Calcium 9.6 8.4 - 10.2 mg/dL 12/31/2023 8:20 AM [facility] Protein Total 7.7 6.0 - 8.3 g/dL 12/31/2023 8:20 AM [facility] Albumin 4.0 3.4 - 5.0 g/dL 12/31/2023 8:20 AM [facility] Bilirubin Total 1.0 0.2 - 1.2 mg/dL 12/31/2023 8:20 AM [facility] Alkaline Phosphatase 183(H) 40 - 150 U/L 12/31/2023 8:20 AM [facility] ALT 16 5 - 55 U/L 12/31/2023 8:20 AM [facility] AST 18 5 - 34 U/L 12/31/2023 8:20 AM [facility] Anion Gap 9 6 - 16 12/31/2023 8:20 AM [facility] BUN/Creatinine Ratio 14 7 - 23 12/31/2023 8:20 AM [facility] Osmolality Calculated 292 275 - 295 mOsm/kg 12/31/2023 8:20 AM [facility] Albumin/Globulin Ratio 1.1 1.1 - 2.3 12/31/2023 8:20 AM [facility] eGFR by CKD-EPI >90 >=90 mL/min/1.7 3 m2 12/31/2023 8:20 AM [facility] Blood BLOOD SPECIMEN / Unknown Lab Venipuncture / Unknown 12/31/2023 7:13 AM MAIL TECHNICIAN 12/31/2023 7:50 AM [facility] Jairon Wyatt MD LAB - CHEMISTR Y ORDERABLES [facility] [address] [place] [id number] [phone] * HEPATITIS SCREEN ACUTE (03/09/2009 4:20 AM MAIL TECHNICIAN) Hepatitis A Virus Antibody IgM Nonreactive Nonreactive [facility] Hepatitis B Core Virus Antibody IgM Nonreactive Nonreactive [facility] Hepatitis B Virus Surface Antigen Nonreactive Nonreactive [facility] Hepatitis C Antibody Screen Nonreactive Nonreactive [facility] BLOOD SPECIMEN / Unknown 03/09/2009 4:20 AM MAIL TECHNICIAN 03/09/2009 4:28 AM MAIL TECHNICIAN Narrative Resulting Agency Comment Performed By [facility] [address] [place] [address] Hilton Campos MD LAB - CHEMISTRY [facility] [address] [place] [address] from Last 3 Months or Most Recently Relevant to Health Maintenance Advance Directives * Full Code (Latest Code Status on File) Date Activated Date Inactivated Comments 03/07/2009 6:15 PM 03/12/2009 1:51 AM * Full Code Date Activated Date Inactivated Comments 11/18/2008 5:59 AM 11/20/2008 8:53 PM Care Teams Civil Rights Representative Relationship Specialty Start Date End Date John Paul Johnston MD [address] [place] [phone] PCP - General Family Medicine 04/09/23
--- OUTSIDE RECORDS SUMMARY | 2024-05-28 09:29 | XMS_ITS | Clinical Summary ---
Author Organization [facility] Address [address] [place] [address] Phone Care Team Providers Care Tile Decorator Name Role Phone Hilton Baron Primary Care Provider +1- [phone] Allergies No known active allergies Medications Multiple Vitamin (ONE-A-DAY MENS PO) Take by mouth daily. Active [place]-3 Fatty Acids (FISH OIL PO) Take by mouth daily. Active B Complex Vitamins (VITAMIN B COMPLEX PO) Take by mouth daily. Active Cholecalciferol (VITAMIN D PO) Take by mouth once a week. Active Omeprazole-Sodium Bicarbonate (ZEGERID OTC PO) Take by mouth as needed. Active Aspirin 81 MG Tablet Take 81 mg by mouth daily. Active DIALYVITE VITAMIN D3 MAX 12246 units Tablet 1 08/12/2018 Active Active Problems [...] patient's age to complete this topic [place] [address] [place] [address] Care Teams Tile Decorator Relationship Specialty Start Date End Date Hilton Baron DO [address] [place] [address] PCP - General Family Medicine 03/04/18
[2024-05-28] MEDS: LIDOCAINE, EPINEPHRINE, TETRACAINE VISCOUS SOLN 3 ML TOPICAL (10:18)
== END 2024-05-28 10:58 | disposition home or self-care (01) ==
PROVIDERS: Emergency Provider Nurse Practitioner; PCP Family Medicine
DX: L72.9 Follicular cyst of the skin and subcutaneous tissue, unspecified (principal); L73.9 Follicular disorder, unspecified; L02.811 Cutaneous abscess of head [any part, except face]; B96.89 Other specified bacterial agents as the cause of diseases classified elsewhere; Z87.891 Personal history of nicotine dependence; K74.60 Unspecified cirrhosis of liver; Z79.82 Long term (current) use of aspirin
CPT/HCPCS: 10060; 87070; 87075; 87186; 87205; 99213; G0463

== ENCOUNTER 2024-06-01 11:05 | Outpatient (CLI) | payer BC, SELFPAY ==
--- NOTE | ~2024-06-01 | CT_ITS ---
CT Scan of the Chest without Contrast: Clinical Indication: Lung cancer screening, nicotine dependence Technique: Contiguous sections were acquired throughout the chest without intravenous contrast. Dose reduction technique was used on this scan by utilizing automated exposure control and iterative recon struction technique. The dose-length product (DLP) was 312.29 mGy-cm. Findings: There is no evidence of any significant mediastinal, hilar or axillary lymphadenopathy. The mediastin al soft tissues appear normal. There is no evidence of pleural or pericardial effusion. The lungs are clear. No pulmonary nodules or infiltrates are noted. Images through the upper abdomen reveal small calcified gallstones. Mild T11 compression fracture pre sent, chronic. Impression: Lung RADS 1: Negative. 12 month follow-up screening CT advised. Reviewed, dictated and finalized at location . Impression: Lung RADS 1: Negative. 12 month follow-up screening CT advised.
--- OUTSIDE RECORDS SUMMARY | 2024-06-01 12:55 | XMS_ITS | Clinical Summary ---
Author Organization [facility] Address [address] [place] [address] Care Team Providers Care Cab Supervisor Name Role Phone Hilton Baron DO Primary Care Provider +1 -[phone] Allergies No known active allergies Medications cholecalcifero l (Dialyvite Vitamin D3 Max) 23532 unit tablet 9 Active omega-3 fatty acids-fish [...] on file Legal Sex Male 9:16 AM BERRY PICKER Gender Identity Not on file Sexual Orientation Not on file Obstetrics History Last Filed Vital Signs Vital Sign Reading Time Taken Comments Blood Pressure 99/61 01/21/2023 12:10 PM BERRY PICKER Pulse 76 01/21/2023 12:10 PM BERRY PICKER Temperature 36.7 C (98.1 F) 01/21/2023 7:31 AM BERRY PICKER Respiratory Rate 16 01/21/2023 12:1 0 PM BERRY PICKER Oxygen Saturation 96% 01/21/2023 12: 10 PM BERRY PICKER Inhaled Oxygen Concentration - - Weight 88.3 kg (194 lb 11.2 oz) 01/19/2023 7:45 PM BERRY PICKER Height 170.2 cm (5' 7 ) 01/19/2023 7:45 PM BERRY PICKER Body Mass Index 30.49 01/19/2023 7:45 PM BERRY PICKER Plan of Treatment Health Maintenance Due Date [...] Associated Diagnosis Comments COLONOSCOPY 01/21/2023 11:06 AM BERRY PICKER from Last 3 Months or Most Recently Relevant to Health Maintenance Results * COLONOSCOPY (01/21/2023 11:06 AM BERRY PICKER) Anatomical Region Laterality Modality Other Narrative Procedure Note Keisha Blankenship MD - 01/21/2023 11:06 AM CST [facility] End[facility] Patient Name: Osmany Anthony Procedure Date: 01/21/2023 11:06AM Date of : 1970 Admit Type: Inpatient Age: 52 Gender: Male Note Status: Finalized Attending MD: Keisha Blankenship M.D. Procedure Date: 01/21/2023 Procedure: Colonoscopy Indications: Hematochezia Providers: Keisha Blankenship M.D., SARTHAK Calderon (Anesthesia Staff), Suma Dykes RN, Subhash, Chief Librarian Circulation Department Referring MD: Andriy Morales M.D. Medicines: Monitored [...] by the physician, the nurse and the production control planner in the procedure room. Mental Status Examination: [...] - Repeat colonoscopy in 5-10 years formerly [facility]. Procedure Code(s): --- Professional --- 31424, Colonoscopy, flexible; with biopsy, singleor multiple Diagnosis Code(s): --- Professional --- D12.7, Benign neoplasm of rectosigmoid junction K64.2, Third degree hemorrhoids K92.1, Melena (includes Hematochezia) K57.30, Diverticulosis of large intestine without perforation or abscess without bleeding CPT copyright 2020 [employer]. All rights reserved. The codes documented in this report are preliminary and upon nitroglycerin supervisor reviewmay be revised to meet current compliance requirements. Electronically signed by Keisha Blankenship M.D. Keisha Blankenship M.D. 01/21/2023 11:40:29 AM Number of Addenda: 0 Note Initiated On: 01/21/2023 11:06 AM Keisha Blankenship MD ENDOSCOPY PROCEDURES Fi nal Result from Last 3 Months or Most Recently Relevant to Health Maintenance Insurance [employer] Advance Directives For more information, please contact: [phone] * Full Code (Latest Code Status on File) Date Activated Date Inactivated Comments 01/19/2023 8:25 PM 01/21/2023 5:03 PM Care Teams Cab Supervisor Relationship Specialty Start Date End Date Hilton Baron DO PCP - General Family Medicine 03/07/21
--- OUTSIDE RECORDS SUMMARY | 2024-06-01 12:55 | XMS_ITS | Clinical Summary ---
Author Organization [facility] Address [address] [place] [address] Phone Care Team Providers Care Landing Scaler Name Role Phone Hilton Baron Primary Care Provider +1- [phone] Allergies No known active allergies Medications Multiple Vitamin (ONE-A-DAY MENS PO) Take by mouth daily. Active [place]-3 Fatty Acids (FISH OIL PO) Take by mouth daily. Active B Complex Vitamins (VITAMIN B COMPLEX PO) Take by mouth daily. Active Cholecalciferol (VITAMIN D PO) Take by mouth once a week. Active Omeprazole-Sodium Bicarbonate (ZEGERID OTC PO) Take by mouth as needed. Active Aspirin 81 MG Tablet Take 81 mg by mouth daily. Active DIALYVITE VITAMIN D3 MAX 56929 units Tablet 1 08/12/2018 Active Active Problems [...] patient's age to complete this topic [place] [address] [place] [address] Care Teams Landing Scaler Relationship Specialty Start Date End Date Hilton Baron DO [address] [place] [address] PCP - General Family Medicine 03/04/18
--- OUTSIDE RECORDS SUMMARY | 2024-06-01 12:55 | XMS_ITS | Clinical Summary ---
Author Organization [facility] Address [address] [facility] [place] [address] Care Team Providers Care Trolley Worker Name Role Phone John Paul Johnston MD Primary Care Provider [phone] Source Comments [facility],non-owned Affiliates and Associated Physician Practices is amultiple site organization consisting of ambulatory clinics and hospital sitesin [place], [place], [place] and [place]. This disclosure is being madepursuant to the Care Everywhere program and may not contain all information available regarding this patient. Last updated 17.[facility] Allergies No known active allergies Medications * [...] Description 05/21/2024 8:01 AM CDT Anesthesia Event [facility] ENDOSCOPY [address] [place] [address] Lianne Benavides MD Dobbs, Kristin L, AUTO ACCESSORIES INSTALLER-CONDITIONING YARD SUPERVISOR 05/21/2024 7:55 AM CDT - 05/21/2024 8:30 AM CDT Surgery [facility] ENDOS[facility] [address] [place] [address] Jairon Wyatt MD EGD w/ saira 05/21/2024 6:44 AM CDT - 05/21/2024 8:49 AM CDT Hospital Encounter [facility] [address] [place] [address] Jairon Wyatt MD Surgery General Discharge Disposition: Home or Self Care 05/21/2024 Travel 05/11/2024 Patient Outreach [facility] [address] [place] [address] Mary Osullivan RN Pre-op Instructions 05/11/2024 Patient Outreach [facility] [address] [place] [address] Mary Osullivan RN Pre-op Instructions 03/12/2024 Refill [facility] [address] [facility] [place] [address] Jairon Wyatt MD Refill Request from Last [...] Info) Description 07/06/2024 7:15 AM CDT Appointment [facility] US [address] [place] [address] Jairon Wyatt MD [address] [place] [address] 07/06/2024 8:00 AM CDT Office Visit [facility] [address] [facility] [place] [id number] Jairon Wyatt MD [address] [place] [address] [place] [address] Health Maintenance Due Date Last Done Comments [...] TISSUE Routine 05/21/2024 8:08 AM CDT Esophagitis [place] ED EGD FLEX TRANSORAL DX 05/21/2024 7:55 AM CDT Esophagitis Special Needs Message Received: Today Jairon Wyatt MD [facility] Schedulers - Endoscopy Pool Please schedule repeat EGD with me in 3 month. Received Date Received Time Feb 06, 2024 10:06 AM EGD Routine 05/21/2024 7:37 AM CDT COMPREHENSIVE METABOLIC PANEL Routine 12/31/2023 7:13 AM PLATINUM AND PALLADIUM KETTLE TENDER Alcoholic cirrhosis of liver with ascites Elevated liver enzymes Alcoholic cirrhosis of liver without ascites Secondary esophageal varices without bleeding HEPATITIS SCREEN ACUTE Routine 03/09/2009 4:20 AM PL[employer]INUM AND PALLADIUM KETTLE TENDER Acute Pancreatitis from Last 3 Months or Most Recently Relevant to Health Maintenance Results * PATHOLOGY TISSUE (05/21/2024 8:08 AM CDT) Case Report Surgical Pathology Report Case: [id number] Authorizing Provider: Jairon Wyatt, Collected: 05/21/2024 08:08 AM Ordering Location: [facility] ENDOSCOPY Received: 05/21/2024 10:01 AM Pathologist: Jodie Squires MD Specimen: Gastric, gastric bx R/O H pylori 05/22/2024 11:41 AM CDT [facility] Final Diagnosis Stomach, biopsy (A): - Mild reactive changes - No active inflammation or H. pylori organisms (H&E examination) 05/22/2024 11:41 AM CDT [facility] PATHOLOGY LAB Microscopic Description and Comment Microscopic examination substantiates the final diagnosis. 05/22/2024 11:41 AM CDT [facility] PATHOLOGY LAB Clinical History The patient is a 53-year-old man who presents for follow-up of esophageal varices. Operative procedure/findings: EGD - portal hypertensive gastropathy; gastritis, biopsied to rule out H. pylori 05/22/2024 11:41 AM CDT [facility] PATHOLOGY LAB Gross Description The requisition and specimen(s) are identified with the patient's name, Osmany Anthony. Received in formalin, specimen A , are three molina-pink tissue fragments, 0.1-0.4 cm, 0.5 x 0.3 x 0.2 cm in aggregate , submitted in toto in cassette A1. IKD 05/22/2024 11:41 AM CDT [facility] Pathologist Location at [facility] 05/22/2024 11:41 AM CDT [facility] PATHOLOGY LAB Disclaimer The performance characteristics of all immunohistochemical and indirect immunofluorescence stains (if any) cited in this report were determined by the Histopathology Laboratory of [facility]. Some of these tests were [...] attending (teaching) pathologist. 05/22/2024 11:41 AM CDT [facility] PATHOLOGY LAB Embedded Images 05/22/2024 11:41 AM T [facility] PATHOLOGY LAB Biopsy, NOS GASTRIC CONTENTS SPECIMEN / Unknown 05/21/2024 8:08 AM CDT 05/21/2024 10:01 AM CDT Comment:Pre-op diagnosis: Esophagitis [K20.90] Jairon Wyatt MD LAB - PATHOLOG Y/CYTOLOGY ORDERABLES [facility] PATHOLOGY LAB [address] [place], [place] [id number] [place] [address] * EGD (05/21/2024 7:37 AM CDT) Report [...] entire procedure. Procedure Code(s): --- Professional --- 70298, Esophagogastroduo denoscopy, flexible, transoral; with biopsy, single or multiple Diagnosis Code(s): --- Professional --- I85.00, Esophageal varices without bleeding K20.90, Esophagitis, unspecified without bleeding K76.6, Portal hypertension K31.89, Other diseases of stomach and duodenum K29.70, Gastritis, unspecified, without bleeding CPT copyright 2021 [employer]. All rights reserved. The codes documented in this report are preliminary and upon ear muff assembler review may be revised to meet current compliance requirements. Jairon Wyatt, 05/21/2024 8:17:42 AM Note Initiated On: 05/21/2024 7:37 AM Number of Addenda: [address] PROVATION 05/21/2024 7:37 AM CDT Jairon Wyatt MD GI PROCEDURE O RDERABLES [facility] PROVATION * (ABNORMAL) COMPREHENSIVE METABOLIC PANEL (12/31/2023 7:13 AM [facility]) BUN 13 7 - 26 mg/dL 12/31/2023 8:20 AM [facility] Creatinine 0.93 0.71 - 1.16 mg/dL 12/31/2023 8:20 AM [facility] Sodium 140 136 - 145 mmol/L 12/31/2023 8:20 AM [facility] Potassium 4.0 3.5 - 4.5 mmol/L 12/31/2023 8:20 AM [facility] Chloride 105 98 - 107 mmol/L 12/31/2023 8:20 AM [facility] CO2 26 22 - 29 mmol/L 12/31/2023 8:20 AM [facility] Glucose 128(H) 70 - 99 mg/dL 12/31/2023 8:20 AM [facility] Calcium 9.6 8.4 - 10.2 mg/dL 12/31/2023 8:20 AM [facility] Protein Total 7.7 6.0 - 8.3 g/dL 12/31/2023 8:20 AM [facility] Albumin 4.0 3.4 - 5.0 g/dL 12/31/2023 8:20 AM [facility] Bilirubin Total 1.0 0.2 - 1.2 mg/dL 12/31/2023 8:20 AM [facility] Alkaline Phosphatase 183(H) 40 - 150 U/L 12/31/2023 8:20 AM [facility] ALT 16 5 - 55 U/L 12/31/2023 8:20 AM [facility] AST 18 5 - 34 U/L 12/31/2023 8:20 AM [facility] Anion Gap 9 6 - 16 12/31/2023 8:20 AM [facility] BUN/Creatinine Ratio 14 7 - 23 12/31/2023 8:20 AM [facility] Osmolality Calculated 292 275 - 295 mOsm/kg 12/31/2023 8:20 AM [facility] Albumin/Globulin Ratio 1.1 1.1 - 2.3 12/31/2023 8:20 AM [facility] eGFR by CKD-EPI >90 >=90 mL/min/1.7 3 m2 12/31/2023 8:20 AM [facility] Blood BLOOD SPECIMEN / Unknown Lab Venipuncture / Unknown 12/31/2023 7:13 AM [employer]INUM [employer] PALLADIUM KETTLE TENDER 12/31/2023 7:50 AM [facility] Jairon Wyatt MD LAB - CHEMISTR Y ORDERABLES [facility] [address] [place] [id number] [phone] * HEPATITIS SCREEN ACUTE (03/09/2009 4:20 AM PLATINUM AND PALLADIUM KETTLE TENDER) Hepatitis A Virus Antibody IgM Nonreactive Nonreactive [facility] Hepatitis B Core Virus Antibody IgM Nonreactive Nonreactive [facility] Hepatitis B Virus Surface Antigen Nonreactive Nonreactive [facility] Hepatitis C Antibody Screen Nonreactive Nonreactive [facility] BLOOD SPECIMEN / Unknown 03/09/2009 4:20 AM PLATINUM AND PALLADIUM KETTLE TENDER 03/09/2009 4:28 AM PLATINUM AND PALLADIUM KETTLE TENDER Narrative Resulting Agency Comment Performed By [facility] [address] [place] [address] Hilton Campos MD LAB - CHEMISTRY [facility] [address] [place] [address] from Last 3 Months or Most Recently Relevant to Health Maintenance Advance Directives * Full Code (Latest Code Status on File) Date Activated Date Inactivated Comments 03/07/2009 6:15 PM 03/12/2009 1:51 AM * Full Code Date Activated Date Inactivated Comments 11/18/2008 5:59 AM 11/20/2008 8:53 PM Care Teams Trolley Worker Relationship Specialty Start Date End Date John Paul Johnston MD [address] [place] [phone] PCP - General Family Medicine 04/09/23
--- OUTSIDE RECORDS SUMMARY | 2024-06-01 12:56 | XMS_ITS | Referral Summary ---
Author Organization [facility] Address [address] [place] [address] Care Team Providers Care Cane Loader Name Role Phone Hilton Baron DO Primary Care Provider [phone] Allergies No known active allergies Medications cholecalcifero l (Dialyvite Vitamin D3 Max) 80241 unit tablet 9 Active omega-3 fatty acids-fish [...] on file Legal Sex Male 9:16 AM SALES FLOOR TEAM MEMBER Gender Identity Not on file Sexual Orientation Not on file Last Filed Vital Signs Vital Sign Reading Time Taken Comments Blood Pressure 99/61 01/21/2023 12:10 PM SALES FLOOR TEAM MEMBER Pulse 76 01/21/2023 12:10 PM SALES FLOOR TEAM MEMBER Temperature 36.7 C (98.1 F) 01/21/2023 7:31 AM SALES FLOOR TEAM MEMBER Respiratory Rate 16 01/21/2023 12:1 0 PM SALES FLOOR TEAM MEMBER Oxygen Saturation 96% 01/21/2023 12: 10 PM SALES FLOOR TEAM MEMBER Inhaled Oxygen Concentration - - Weight 88.3 kg (194 lb 11.2 oz) 01/19/2023 7:45 PM SALES FLOOR TEAM MEMBER Height 170.2 cm (5' 7 ) 01/19/2023 7:45 PM SALES FLOOR TEAM MEMBER Body Mass Index 30.49 01/19/2023 7:45 PM SALES FLOOR TEAM MEMBER Plan of Treatment Not on file Procedures Procedure Name Priority Date/Time Associated Diagnosis Comments COLONOSCOPY 01/21/2023 11:06 AM SALES FLOOR TEAM MEMBER from Last 3 Months or Most Recently Relevant to Health Maintenance Results * COLONOSCOPY (01/21/2023 11:06 AM SALES FLOOR TEAM MEMBER) Anatomical Region Laterality Modality Other Narrative Procedure Note Keisha Blankenship MD - 01/21/2023 11:06 AM CST [facility] Endoscopy Lab Patient Name: Osmany Anthony Procedure Date: 01/21/2023 11:06AM Date of : 1970 Admit Type: Inpatient Age: 52 Gender: Male Note Status: Finalized Attending MD: Keisha Blankenship M.D. Procedure Date: 01/21/2023 Procedure: Colonoscopy Indications: Hematochezia Providers: Keisha Blankenship M.D., SARTHAK Calderon (Anesthesia Staff), Suma Dykes RN, [facility], Delivery Rn Referring MD: Andriy Morales M.D. Medicines: Monitored [...] by the physician, the nurse and the rivet heater in the procedure room. Mental Status Examination: [...] [facility] Procedure Code(s): --- Professional --- 79422, Colonoscopy, flexible; with biopsy, singleor multiple Diagnosis Code(s): --- Professional --- D12.7, Benign neoplasm of rectosigmoid junction K64.2, Third degree hemorrhoids K92.1, Melena (includes Hematochezia) K57.30, Diverticulosis of large intestine without perforation or abscess without bleeding CPT copyright 2020 [employer]. All rights reserved. The codes documented in this report are preliminary and upon attendant honor bar reviewmay be revised to meet current compliance requirements. Electronically signed by Keisha Blankenship M.D. Keisha Blankenship M.D. 01/21/2023 11:40:29 AM Number of Addenda: 0 Note Initiated On: 01/21/2023 11:06 AM Keisha Blankenship MD ENDOSCOPY PROCEDURES Fi nal Result from Last 3 Months or Most Recently Relevant to Health Maintenance Insurance [employer] Advance Directives For more information, please contact: [phone] * Full Code (Latest Code Status on File) Date Activated Date Inactivated Comments 01/19/2023 8:25 PM 01/21/2023 5:03 PM Care Teams Cane Loader Relationship Specialty Start Date End Date Hilton Baron DO PCP - General Family Medicine 03/07/21
== END 2024-06-01 11:06 | disposition home or self-care (01) ==
PROVIDERS: PCP Family Medicine; Visit Provider Nurse Practitioner Family
DX: Z12.2 Encounter for screening for malignant neoplasm of respiratory organs (principal); Z87.891 Personal history of nicotine dependence
CPT/HCPCS: 71271